=== PATIENT | female | born 1950 | race Caucasian/White ===

== ENCOUNTER → 2016-11-07 | Outpatient (REF) | payer MEDICARE ==
[~2016-11-07] MED LIST: ACET500C; ACET650S3 PO; ATEN50TA2 PO; BABY81CH; CALC500T36 PO; CHLO125TA PO; DITR1TAB PO; ELIQ5TAB PO; FISH1000 PO; LISI25TA PO; MEGE40TA PO; METF500T PO; NITR0.4S; PLAV75TA38 PO; TENO50TA; VITA100T20 PO; VITA50TA43 PO; VITATAB11 PO; unknown bp med
== END ==
LOC: M SFHCWAGY 15:08
PROVIDERS: ATTEND Nurse Practitioner Family
DX: Z12.4 Encounter for screening for malignant neoplasm of cervix (principal); Z12.12 Encounter for screening for malignant neoplasm of rectum
CPT/HCPCS: 82270; G0101; G0123

== ENCOUNTER → 2016-12-06 | Outpatient (CLI) | payer MEDICARE ==
--- NOTE | 2016-12-06 14:08 | REP ---
PELVIC SONOGRAPHY: HISTORY: Postmenopausal bleeding. FINDINGS: Transabdominal and transvaginal scanning are performed. Uterine dimensions are normal post menopausal at 6.1 x 3.4 x 2.9 cm. Endometrial echo is 0.6 cm thick. No focal uterine mass is seen. Neither ovary could be visualized transabdominally or trans vaginally. No adnexal cyst or mass is seen. No free fluid is noted. IMPRESSION: No abnormality noted. Neither ovary is directly visualized. Signed by Leonel Kraimi MD 12/06/2016 04:33 P
== END ==
LOC: M RAD 11:57
PROVIDERS: ATTEND Nurse Practitioner Family
DX: N95.0 Postmenopausal bleeding (principal)

== ENCOUNTER → 2016-12-18 | Outpatient (REF) | payer MEDICARE | LOC: M SFHCWAGY 12:15 | PROVIDERS: ATTEND Nurse Practitioner Family | DX: N95.0 Postmenopausal bleeding (principal); R93.8 Abnormal findings on diagnostic imaging of other specified body structures ==

== ENCOUNTER → 2017-03-11 | Day surgery (SDC) | payer MEDICARE ==
[~2017-03-11] VITALS: Ht 167.6 cm; Wt 129.3 kg
[~2017-03-11] MED LIST changes: +BACITRACIN OINT 30GM As Ordered ONE; +CALC1TAB18 PO; +FISH5CAP PO; +LIDOCAINE 2% INJ 100 MG/5 ML SDV (FOR ANES.) As Ordered ONE; +LIDOCAINE W/EPINEPHRINE 1% 20ML VIAL As Ordered ONE; +LISI2.5T3 PO; +LISI2.5T76 PO; -LISI25TA PO; +LR 1,000 ML IV SCH; +MAGN250T9 PO; -MEGE40TA PO; +MEGE40TA18 PO; +METF750T PO; +MIDAZOLAM INJ 2 MG/2 ML VIAL (J2250) As Ordered ONE; +OSTETAB3 PO; +PRESCAP PO; +PROPOFOL 200 MG/20 ML VIAL As Ordered ONE; +VITA200016 PO; +[UNRECOGNIZED DRUG - CODE] PO; +fentaNYL 100 MCG/2 ML INJECTION (J3010) As Ordered ONE
[2017-03-11 09:35] VITALS: BP 146/67
--- NOTE | 2017-03-11 17:00 | RO ---
DATE OF PROCEDURE: 03/11/2017 PREOPERATIVE DIAGNOSIS: Scalp lesion. POSTOPERATIVE DIAGNOSIS: Scalp lesion. PROCEDURE: Excision of scalp lesion. SURGEON: Dr. Rush SPECIALIST WOUND CARE: None. ANESTHESIA: Intravenous (IV) sedation with 10 mL of 1% lidocaine local. COMPLICATIONS: None. INDICATIONS FOR PROCEDURE: The patient is a 6-year-old female who presents with a large lesion on the apex her scalp. Due to the size, recommendation was to proceed with resection in the operating room. Risks and benefits of the procedure not limited but including bleeding, infection and need further surgery were discussed in detail with the patient. Informed was obtained procedure was planned. PROCEDURE: The patient brought back to operating room one after sufficient sedation. The scalp was sterilely prepped and draped with Betadine. Next, a time out was done confirm patient and proper patient for procedure. Following that local was injected skin subcutaneous tissue underneath and surrounding this lesion. Following that a 5 cm x 2.5 cm elliptical incision was created excising the entire lesion. Once this was completed, electrocautery was used up for hemostasis. A15 blade scalpel was then used to undermine the skin edges for about 2 cm in all directions. Once I was completed the skin edges were reapproximated with #2-0 nylon interrupted sutures. Once the skin incision was closed, it was cleaned and dried. The incision was then covered with him some bacitracin thus ending procedure.
== END | disposition home or self-care (01) ==
LOC: M SDC 06:54
PROVIDERS: ATTEND Surgery
DX: L82.1 Other seborrheic keratosis (principal); E11.9 Type 2 diabetes mellitus without complications; I48.91 Unspecified atrial fibrillation; Z79.02 Long term (current) use of antithrombotics/antiplatelets; Z79.899 Other long term (current) drug therapy; E04.1 Nontoxic single thyroid nodule
CPT/HCPCS: 11423; 88305; J2250; J3010

== ENCOUNTER → 2017-03-15 | Outpatient (REF) | payer MEDICARE ==
[~2017-03-15] MED LIST changes: -BACITRACIN OINT 30GM As Ordered ONE; -LIDOCAINE 2% INJ 100 MG/5 ML SDV (FOR ANES.) As Ordered ONE; -LIDOCAINE W/EPINEPHRINE 1% 20ML VIAL As Ordered ONE; -LR 1,000 ML IV SCH; -MIDAZOLAM INJ 2 MG/2 ML VIAL (J2250) As Ordered ONE; -PROPOFOL 200 MG/20 ML VIAL As Ordered ONE; -fentaNYL 100 MCG/2 ML INJECTION (J3010) As Ordered ONE
[2017-03-15 13:42] LABS: MEAN CORPUSCULAR HEMOGLOBIN 29.1 pg (27.0-33.0); MEAN CORPUSCULAR HGB CONC 32.5 g/dl (32.0-36.5); MEAN CORPUSCULAR VOLUME 89.6 fl (80.0-96.0); RED CELL DISTRIBUTION WIDTH 14.1 % (11.5-14.5); WHITE BLOOD COUNT 7.7 K/mm3 (4.0-10.0)
[2017-03-15 14:07] LABS: ALBUMIN 3.6 GM/DL (3.2-5.2); ALBUMIN/GLOBULIN RATIO 1.09 (1.00-1.93); ALKALINE PHOSPHATASE 66 U/L (45-117); ALT/SGPT 36 U/L (12-78); ANION GAP 10 MEQ/L (8-16); AST/SGOT 16 U/L (15-37); BILIRUBIN,TOTAL 0.7 MG/DL (0.2-1.0); BLOOD UREA NITROGEN 14 MG/DL (7-18); CALCIUM LEVEL 9.3 MG/DL (8.8-10.2); CARBON DIOXIDE LEVEL 29 MEQ/L (21-32); CHLORIDE LEVEL 101 MEQ/L (98-107); CHOLESTEROL LEVEL 155 MG/DL (<200); CREATININE FOR GFR 0.81 MG/DL (0.55-1.02); GLOMERULAR FILTRATION RATE > 60.0 (>45); GLUCOSE, FASTING 95 MG/DL (80-110); POTASSIUM SERUM 4.2 MEQ/L (3.5-5.1); SODIUM LEVEL 140 MEQ/L (136-145); TOTAL PROTEIN 6.9 GM/DL (6.4-8.2); TRIGLYCERIDES LEVEL 211 MG/DL (<150)
== END ==
LOC: M SFHCPLAZ 10:32
PROVIDERS: ATTEND Internal Medicine
DX: R06.09 Other forms of dyspnea (principal); I10 Essential (primary) hypertension; R73.01 Impaired fasting glucose

== ENCOUNTER 2017-04-19 06:01 | Day surgery (SDC) | payer MEDICARE ==
[~2017-04-19] VITALS: Ht 167.6 cm; Wt 129.3 kg
[2017-04-19] VITALS (8 sets, daily range): BP systolic 118–168; BP diastolic 62–77; O2SAT 92
[2017-04-19] MEDS ORDERED: LR 1,000 ML IV SCH ×2 (06:15→12:00)
[2017-04-19] MEDS ORDERED: BUPIVACAINE HCL 0.25% 30 ML VIAL As Ordered ONE (06:34)
[2017-04-19] MEDS ORDERED: METHYLENE BLUE 0.5% (5MG/ML) 10 ML AMP (PROVAYBLUE)(Q9968 PER 1MG) As Ordered ONE (06:35)
[2017-04-19] MEDS ORDERED: PROPOFOL 200 MG/20 ML VIAL As Ordered ONE (08:35)
[2017-04-19] MEDS ORDERED: fentaNYL 250 MCG/5 ML INJECTION (J3010) As Ordered ONE (08:35)
[2017-04-19] MEDS ORDERED: ROCURONIUM BROMIDE 50 MG/5 ML VIAL As Ordered ONE ×3 (08:35→10:32)
[2017-04-19] MEDS ORDERED: LIDOCAINE 2% INJ 100 MG/5 ML SDV (FOR ANES.) As Ordered ONE (08:35)
[2017-04-19] MEDS ORDERED: MIDAZOLAM INJ 2 MG/2 ML VIAL (J2250) As Ordered ONE (08:35)
[2017-04-19] MEDS: LISINOPRIL *2.5 MG* TAB PO SCH ×2 (09:00→20:57)
[2017-04-19] MEDS ORDERED: HYDROmorphone HCL 2 MG/ML 1ML VIAL (J1170) As Ordered ONE (09:28)
[2017-04-19] MEDS ORDERED: ONDANSETRON 4MG/2ML VIAL (J2405) As Ordered ONE (09:35)
[2017-04-19] MEDS ORDERED: hydrALAZINE INJ 20 MG/ML VIAL As Ordered ONE (09:57)
[2017-04-19] MEDS ORDERED: DESFLURANE 240 ML INHALANT As Ordered ONE (10:19)
[2017-04-19] MEDS ORDERED: GLYCOPYRROLATE INJ 0.2 MG/ML 2 ML VIAL As Ordered ONE (10:47)
[2017-04-19] MEDS ORDERED: NEOSTIGMINE 1MG/ML 5 ML SYRINGE (J2710) As Ordered ONE (10:47)
[2017-04-19] MEDS ORDERED: ONDANSETRON 4MG/2ML VIAL (J2405) IV PRN (12:00)
[2017-04-19] MEDS ORDERED: PERCOCET 5MG/325MG TAB PO PRN (12:00)
[2017-04-19] MEDS ORDERED: fentaNYL 100 MCG/2 ML INJECTION (J3010) IV PRN (12:00)
[2017-04-19] MEDS ORDERED: HYDROmorphone HCL 1 MG/ML SYRINGE (J1170) IV PRN (12:00)
[2017-04-19] MEDS ORDERED: PROMETHAZINE INJ 25 MG/ML VIAL (J2550) IV PRN (12:00)
[2017-04-19] MEDS ORDERED: MORPHINE 4 MG/ML 1ML SYRINGE IV PRN (12:00)
[2017-04-19] MEDS ORDERED: METOCLOPRAMIDE INJ 10MG/2ML VIAL (J2765) IV PRN (12:00)
--- NOTE | 2017-04-19 13:53 | RO ---
DATE OF PROCEDURE: 04/19/2017 PREOPERATIVE DIAGNOSES: 1. Postmenopausal bleeding. 2. Genuine stress urinary incontinence. POSTOPERATIVE DIAGNOSES: 1. Postmenopausal bleeding. 2. Genuine stress urinary incontinence. PROCEDURE PERFORMED: 1. Robotic assisted laparoscopic hysterectomy. 2. Bilateral salpingo-oophorectomy. 3. Tension free vaginal tape, obturator approach. 4. Cystoscopy. SURGEON: Taylor Romero MD TRUCK DRIVER'S OFFSIDER: Edil Pillai MD ANESTHESIA: General endotracheal anesthesia. INTRAVENOUS FLUIDS: 1100 mL of Lactated Ringer's solution. SPECIMENS: Cervix, uterus, bilateral adnexa. URINE OUTPUT: 200 mL. ESTIMATED BLOOD LOSS: 100 mL. PREOPERATIVE ANTIBIOTICS: 2 grams of Ancef. OPERATIVE FINDINGS: Normal appearing uterus, bilateral adnexa. Cystoscopic findings show good urethral efflux bilaterally. No evidence of trauma or foreign bodies. DESCRIPTION OF OPERATION: After informed consent was obtained and written consent was reviewed, the patient was brought to the operating room where general endotracheal anesthesia was obtained. She was then placed in lithotomy position, was prepped and draped in a normal sterile fashion. A time out in the operating room was then performed, identifying the patient and procedure to be performed as well as drug allergies. A speculum was then placed revealing the cervix. The anterior and posterior aspect of the cervix was stitched with #0 Vicryl. The uterus was then sequentially dilated with Hanks dilators. A large VCare uterine manipulator was then advanced through the cervical os to the level of the fundus for a means to manipulate the uterus. The uterine balloon was insufflated with 10 mL of air. Then a cervical hat was then advanced down to the vagina. Instruments were removed from the patient's vagina. Garcia catheter was placed and set to gravity. Gloves were changed and attention was turned to the patient's abdomen where a Veress needle was placed in the umbilicus and a pneumoperitoneum was obtained with CO2 gas. The infraumbilical area was infused with 0.25% Marcaine and an incision was made in this area. A trocar and sleeve was advanced through this incision. The laparoscope was then replaced revealing intra-abdominal placement. Two lateral ports left and to the right of umbilicus were placed, each of these were infused with 0.25% Marcaine. 8 mm trocar and sleeves were advanced through each one of these incisions under direct visualization. A fourth trocar was placed in the patient's left side of her abdomen. This area was infused with 0.25% Marcaine. An incision was made in this area and an 8 mm trocar and sleeve was advanced through this incision under direct visualization. Next, the da Idalia was advanced to the patient's table and was docked utilizing camera arm and two operative arms. Utilizing the da Idalia with bipolar cautery, the utero-ovarian ligaments were then cauterized and ligated with good hemostasis noted bilaterally. The round ligaments on both sides were then cauterized and ligated with good hemostasis noted. The anterior lip of the broad ligaments were then dissected along the bladder creating a bladder flap. The remainder of the broad ligament and cardinal ligaments were then cauterized and ligated with good hemostasis noted. The uterine artery was then skeletonized bilaterally and were cauterized and ligated with good hemostasis noted. Inferior and posterior colpotomies were made. The uterus was then removed vaginally. Surgical sites were inspected and noted to be hemostatic. Next, bilateral salpingo-oophorectomy was then performed. The fallopian tube was placed on traction. The right infundibulopelvic ligament was then cauterized and ligated with good hemostasis noted. The specimen was then brought out through the vaginal incision. In a similar fashion, the left adnexa was placed on traction and the left infundibulopelvic ligament was then cauterized and ligated with good hemostasis noted. The specimen was brought out through the incision. The vaginal cuff was then closed laparoscopically using a #2-0 V-Loc system in a running fashion. Surgical sites were inspected to be hemostatic. Evens was then applied over the surgical field. Next the da Idalia was then undocked and attention was turned to the patient's abdomen where all four skin incisions were closed with #4-0 Monocryl and dressed with DERMABOND. We then proceeded to the TVTO. The Garcia catheter was then removed and the area below the urethral meatus was the injected with 1% lidocaine. Incision was then made approximately 2 cm below the urethral meatus to the vaginal mucosa. This area was further dissected bilaterally. A wing guide was then placed and the TVTO device was inserted through the open end of the vaginal mucosa and was rotated externally and then exited through the skin in the groin area, which was previously marked in the line of the clitoris. This was repeated on the patient's left side. A Sugar clamp was then placed between the urethra and the vaginal tape. The tape was then adjusted to appropriate tension. The protective sleeve was removed. Excess mesh was then cut and the vaginal mucosa was closed with #2-0 Vicryl. A cystoscopy was then performed with the above noted findings. Bilateral jets were visualized. No foreign bodies were in urethra to the bladder. Instruments were then removed. The patient was then taken out of lithotomy position and was awakened from general anesthesia and taken to recovery in stable condition. Counts were correct.
[2017-04-19] MEDS: PERCOCET 5MG/325MG TAB PO PRN (18:21)
[2017-04-19] MEDS: LR 1,000 ML IV SCH ×2 (20:00→20:24)
[2017-04-20] MEDS: PERCOCET 5MG/325MG TAB PO PRN ×4 (01:44→15:04)
[2017-04-20 02:00] VITALS: BP 146/67
[2017-04-20 06:00] VITALS: BP 140/65
[2017-04-20 07:11] LABS: MEAN CORPUSCULAR HEMOGLOBIN 29.4 pg (27.0-33.0); MEAN CORPUSCULAR HGB CONC 33.3 g/dl (32.0-36.5); MEAN CORPUSCULAR VOLUME 88.5 fl (80.0-96.0); RED CELL DISTRIBUTION WIDTH 14.6 % (11.5-14.5)
[2017-04-20 12:46] VITALS: BP 131/60
[2017-04-20] MEDS: LISINOPRIL *2.5 MG* TAB PO SCH (12:46)
== END 2017-04-20 18:05 | disposition home or self-care (01) ==
LOC: M SDC 06:01 → M MS5PR 13:47 → M SDC 04-20 18:05
PROVIDERS: ATTEND Obstetrics & Gynecology
DX: N95.0 Postmenopausal bleeding (principal); D25.1 Intramural leiomyoma of uterus; N39.3 Stress incontinence (female) (male); I48.91 Unspecified atrial fibrillation; I10 Essential (primary) hypertension; E11.9 Type 2 diabetes mellitus without complications; Z79.4 Long term (current) use of insulin; E66.01 Morbid (severe) obesity due to excess calories; Z88.2 Allergy status to sulfonamides; Z79.02 Long term (current) use of antithrombotics/antiplatelets; Z79.899 Other long term (current) drug therapy
CPT/HCPCS: 36415; 57288; 58571; 85027; 86850; 86900; 86901; 88307; 96375; A6024; C1771; J0690; J1170; J2250; J2405; J2710; J3010

== ENCOUNTER 2017-05-30 06:50 | Outpatient (CLI) | payer MEDICARE ==
[~2017-05-30] VITALS: Ht 167.6 cm; Wt 127.0 kg
[~2017-05-30 06:50] MED LIST changes: -CALC1TAB18 PO; +CALC1TAB19 PO; -METF500T PO; +METF500T13 PO; +PLAV1TAB2 PO; -PLAV75TA38 PO
[2017-05-30] MEDS ORDERED: NS 1,000 ML IV SCH (07:15)
[2017-05-30] MEDS ORDERED: PROPOFOL 200 MG/20 ML VIAL As Ordered ONE ×2 (08:02→08:36)
--- NOTE | 2017-05-30 08:17 | ROOR ---
Patient Name: Rosaura Flores Procedure Date: 05/30/2017 7:58 AM Date of : 1950 Age: 67 Room: [facility] Gender: Female Note Status: Finalized Procedure: Colonoscopy Indications: High risk colon cancer surveillance: Personal history of colonic polyps, Last colonoscopy: March 2014 Providers: David CARNEY MD Referring MD: Cody Willingham MD Requesting Provider: Medicines: Monitored Anesthesia Care Complications: No immediate complications. Procedure: Pre-Anesthesia Assessment: - The heart rate, respiratory rate, oxygen saturations, blood pressure, adequacy of pulmonary ventilation, and response to care were monitored throughout the procedure. The Colonoscope was introduced through the anus and advanced to the cecum, identified by appendiceal orifice and ileocecal valve. The colonoscopy was performed without difficulty. The patient tolerated the procedure well. The quality of the bowel preparation was good. Findings: The perianal and digital rectal examinations were normal. (Exam: Complete, Prep: Good or Excellent.) The entire examined colon appeared normal on direct and retroflexion views. Impression: - The entire examined colon is normal on direct and retroflexion views. - No specimens collected. Recommendation: - Repeat colonoscopy in 5 years for surveillance based on personal history of previous adenomatous polyps. - Resume Eliquis (apixaban) today and Plavix (clopidogrel) today at prior doses. David Carney MD David CARNEY MD 05/30/2017 8:16:38 AM This report has been signed electronically. Number of Addenda: 0 Note Initiated On: 05/30/2017 7:58 AM Estimated Blood Loss: Estimated blood loss: none.
[2017-05-30 08:48] VITALS: BP 137/67
== END 2017-05-30 08:54 | disposition home or self-care (01) ==
LOC: M OPP 06:50
PROVIDERS: ATTEND Internal Medicine Gastroenterology
DX: Z12.11 Encounter for screening for malignant neoplasm of colon (principal); Z86.010 Personal history of colon polyps; I48.91 Unspecified atrial fibrillation; I10 Essential (primary) hypertension; E11.9 Type 2 diabetes mellitus without complications; E04.1 Nontoxic single thyroid nodule; R06.02 Shortness of breath; N39.3 Stress incontinence (female) (male); Z88.2 Allergy status to sulfonamides; Z79.899 Other long term (current) drug therapy; Z79.01 Long term (current) use of anticoagulants; Z79.84 Long term (current) use of oral hypoglycemic drugs; Z80.3 Family history of malignant neoplasm of breast; Z80.42 Family history of malignant neoplasm of prostate; Z80.41 Family history of malignant neoplasm of ovary

== ENCOUNTER → 2017-08-12 | Outpatient (REF) | payer MEDICARE | LOC: M SFHCPLAZ 11:48 | PROVIDERS: ATTEND Nurse Practitioner Adult Health | DX: J02.9 Acute pharyngitis, unspecified (principal) ==

== ENCOUNTER → 2017-10-08 | Outpatient (REF) | payer MEDICARE ==
[2017-10-08 12:41] LABS: ALBUMIN 3.6 GM/DL (3.2-5.2); ALBUMIN/GLOBULIN RATIO 1.16 (1.00-1.93); ALKALINE PHOSPHATASE 64 U/L (45-117); ALT/SGPT 28 U/L (12-78); ANION GAP 8 MEQ/L (8-16); AST/SGOT 13 U/L (7-37); BILIRUBIN,TOTAL 0.6 MG/DL (0.2-1.0); BLOOD UREA NITROGEN 16 MG/DL (7-18); CALCIUM LEVEL 9.5 MG/DL (8.8-10.2); CARBON DIOXIDE LEVEL 30 MEQ/L (21-32); CHLORIDE LEVEL 104 MEQ/L (98-107); CHOLESTEROL LEVEL 152 MG/DL (<200); CREATININE FOR GFR 0.78 MG/DL (0.55-1.02); GLOMERULAR FILTRATION RATE > 60.0 (>45); GLUCOSE, FASTING 129 MG/DL (80-110); MAGNESIUM LEVEL 1.8 MG/DL (1.8-2.4); POTASSIUM SERUM 4.5 MEQ/L (3.5-5.1); SODIUM LEVEL 142 MEQ/L (136-145); TOTAL PROTEIN 6.7 GM/DL (6.4-8.2); TRIGLYCERIDES LEVEL 188 MG/DL (<150)
== END ==
LOC: M SFHCPLAZ 09:29
PROVIDERS: ATTEND Internal Medicine
DX: I10 Essential (primary) hypertension (principal); E11.9 Type 2 diabetes mellitus without complications

== ENCOUNTER → 2018-01-07 | Outpatient (CLI) | payer MEDICARE | LOC: M RAD 12:13 | DX: Z12.31 Encounter for screening mammogram for malignant neoplasm of breast (principal); R92.8 Other abnormal and inconclusive findings on diagnostic imaging of breast; Z80.3 Family history of malignant neoplasm of breast | CPT/HCPCS: 77067 ==

== ENCOUNTER → 2018-01-16 | Outpatient (CLI) | payer MEDICARE | LOC: M RAD 11:11 | DX: R92.8 Other abnormal and inconclusive findings on diagnostic imaging of breast (principal) | CPT/HCPCS: 77066 ==

== ENCOUNTER → 2018-05-01 | Outpatient (REF) | payer MEDICARE ==
[2018-05-01 11:59] LABS: HEMATOCRIT 40.6 % (36.0-47.0); HEMOGLOBIN 12.6 g/dl (12.0-15.5); MEAN CORPUSCULAR HEMOGLOBIN 28.2 pg (27.0-33.0); MEAN CORPUSCULAR VOLUME 90.8 fl (80.0-96.0); PLATELET COUNT, AUTOMATED 258 10^3/uL (150-450); RED BLOOD COUNT 4.47 10^6/uL (4.00-5.40); RED CELL DISTRIBUTION WIDTH 14.4 % (11.5-14.5); WHITE BLOOD COUNT 7.7 10^3/uL (4.0-10.0)
[2018-05-01 12:26] LABS: ALBUMIN 3.3 GM/DL (3.2-5.2); ALKALINE PHOSPHATASE 59 U/L (45-117); ALT/SGPT 35 U/L (12-78); ANION GAP 8 MEQ/L (8-16); AST/SGOT 14 U/L (7-37); BILIRUBIN,TOTAL 0.5 MG/DL (0.2-1.0); BLOOD UREA NITROGEN 15 MG/DL (7-18); CALCIUM LEVEL 8.8 MG/DL (8.8-10.2); CARBON DIOXIDE LEVEL 29 MEQ/L (21-32); CHLORIDE LEVEL 106 MEQ/L (98-107); CHOLESTEROL LEVEL 151 MG/DL (<200); CHOLESTEROL RISK RATIO 4.081 (<5); CREATININE FOR GFR 0.77 MG/DL (0.55-1.30); GLOMERULAR FILTRATION RATE > 60.0 (>45); GLUCOSE, FASTING 119 MG/DL (70-100); HDL CHOLESTEROL 37 MG/DL (>40); LDL CHOLESTEROL 76.8 MG/DL (<100); MAGNESIUM LEVEL 2.1 MG/DL (1.8-2.4); NON-HDL-C 114 MG/DL; POTASSIUM SERUM 4.5 MEQ/L (3.5-5.1); SODIUM LEVEL 143 MEQ/L (136-145); THYROID STIMULATING HORMONE 0.934 uIU/ML (0.358-3.740); TOTAL PROTEIN 6.3 GM/DL (6.4-8.2); TRIGLYCERIDES LEVEL 186 MG/DL (<150)
== END ==
LOC: M SFHCPLAZ 09:29
DX: G62.9 Polyneuropathy, unspecified (principal); R06.09 Other forms of dyspnea; I10 Essential (primary) hypertension; E11.9 Type 2 diabetes mellitus without complications; E66.01 Morbid (severe) obesity due to excess calories; E04.9 Nontoxic goiter, unspecified
CPT/HCPCS: 83735

== ENCOUNTER → 2018-11-04 | Outpatient (REF) | payer MEDICARE ==
[~2018-11-04] MED LIST changes: -LISI2.5T3 PO; +LISI2.5T5 PO
[2018-11-04 12:40] LABS: ALBUMIN 3.3 GM/DL (3.2-5.2); ALT/SGPT 30 U/L (12-78); BILIRUBIN,TOTAL 0.6 MG/DL (0.2-1.0); BLOOD UREA NITROGEN 17 MG/DL (7-18); CALCIUM LEVEL 9.2 MG/DL (8.8-10.2); CARBON DIOXIDE LEVEL 29 MEQ/L (21-32); CHLORIDE LEVEL 104 MEQ/L (98-107); CHOLESTEROL LEVEL 146 MG/DL (<200); CHOLESTEROL RISK RATIO 3.476 (<5); CREATININE FOR GFR 0.75 MG/DL (0.55-1.30); GLOMERULAR FILTRATION RATE > 60.0 (>45); GLUCOSE, FASTING 127 MG/DL (70-100); HDL CHOLESTEROL 42 MG/DL (>40); LDL CHOLESTEROL 69 MG/DL (<100); MAGNESIUM LEVEL 2.1 MG/DL (1.8-2.4); NON-HDL-C 104 MG/DL; POTASSIUM SERUM 4.7 MEQ/L (3.5-5.1); SODIUM LEVEL 141 MEQ/L (136-145); TOTAL PROTEIN 6.3 GM/DL (6.4-8.2); TRIGLYCERIDES LEVEL 177 MG/DL (<150)
[2018-11-04 12:55] LABS: CREATININE, URINE 56.1 MG/DL; MALB URINE SIEMENS 7.6 MG/L; MAU/CREAT RATIO 13.5 MCG/MG (0.0-30.0)
[2018-11-04 13:54] LABS: HEMOGLOBIN A1c 5.7 %
== END ==
LOC: M SFHCPLAZ 10:05
PROVIDERS: ATTEND Internal Medicine
DX: I10 Essential (primary) hypertension (principal); E11.9 Type 2 diabetes mellitus without complications

== ENCOUNTER → 2019-04-22 | Outpatient (CLI) | payer MEDICARE ==
[~2019-04-22] MED LIST changes: +CALC12504 PO; -CALC500T36 PO; +LISI-1046 PO; -LISI2.5T5 PO; -VITA100T20 PO; +VITA100T51 PO
--- NOTE | 2019-04-22 13:22 | REPMRS ---
Patient History The patient states she has not had a clinical breast exam in over a year. Family history of breast cancer at age 65 in mother, breast cancer at age 50 in sister, breast cancer at age 50 or over in maternal cousin, prostate cancer at age 50 or over in father. Benign excisional biopsy of the right breast, 1988. Took hormonal contraceptives for 3 years. Digital Mammo Screening Bilat: April 22, 2019 - Exam #: [id number] Bilateral CC and MLO view(s) were taken. Technologist: Pallavi Gamble, Technologist Prior study comparison: January 16, 2018, digital mammo diagnostic bilateral performed at [facility]. January 07, 2018, bilateral digital mammo screening bilat performed at [facility]. September 26, 2016, bilateral digital mammo screening bilat performed at [facility]. FINDINGS: There are scattered fibroglandular densities. There are several stable benign appearing nodules on the left unchanged. There has been no change in the appearance of the mammogram from the prior studies. There is a mild amount of scattered fibroglandular density which is fairly symmetric. There is no interval development of dominant mass, architectural distortion, or grouped microcalcification suggestive of malignancy. 3-D tomosynthesis shows no additional findings. Assessment: BI-RADS/ACR category 2 mammogram. Benign Findings. Recommendation Routine screening mammogram of both breasts in 1 year (for women over age 40). This patient's Lifetime Breast Cancer Risk is estimated at 11.6 %. This mammogram was interpreted with the aid of an FDA-approved computer-aided dectection system. Electronically Signed By: Gerald Karimi MD 04/22/19 [id number]
== END ==
LOC: M RAD 10:59
PROVIDERS: ATTEND Internal Medicine
DX: Z12.31 Encounter for screening mammogram for malignant neoplasm of breast (principal); Z80.3 Family history of malignant neoplasm of breast; Z92.0 Personal history of contraception

== ENCOUNTER → 2019-05-12 | Outpatient (REF) | payer MEDICARE ==
[~2019-05-12] MED LIST changes: -CALC12504 PO; +CALC500T61 PO; -METF750T PO; +METF750T36 PO
[2019-05-12 13:02] LABS: HEMATOCRIT 38.4 % (36.0-47.0); HEMOGLOBIN 12.1 g/dl (12.0-15.5); MEAN CORPUSCULAR HEMOGLOBIN 29.4 pg (27.0-33.0); MEAN CORPUSCULAR HGB CONC 31.5 g/dl (32.0-36.5); MEAN CORPUSCULAR VOLUME 93.4 fl (80.0-96.0); PLATELET COUNT, AUTOMATED 222 10^3/uL (150-450); RED BLOOD COUNT 4.11 10^6/uL (4.00-5.40)
[2019-05-12 13:27] LABS: HEMOGLOBIN A1c 5.9 %
[2019-05-12 14:03] LABS: ALBUMIN 3.3 GM/DL (3.2-5.2); ALT/SGPT 40 U/L (12-78); BILIRUBIN,TOTAL 0.7 MG/DL (0.2-1.0); BLOOD UREA NITROGEN 21 MG/DL (7-18); CALCIUM LEVEL 8.9 MG/DL (8.8-10.2); CARBON DIOXIDE LEVEL 27 MEQ/L (21-32); CHLORIDE LEVEL 109 MEQ/L (98-107); CREATININE FOR GFR 0.85 MG/DL (0.55-1.30); GLOMERULAR FILTRATION RATE > 60.0 (>39); GLUCOSE, FASTING 106 MG/DL (70-100); MAGNESIUM LEVEL 2.5 MG/DL (1.8-2.4); POTASSIUM SERUM 4.9 MEQ/L (3.5-5.1); SODIUM LEVEL 144 MEQ/L (136-145)
== END ==
LOC: M SFHCPLAZ 10:32
PROVIDERS: ATTEND Internal Medicine
DX: G62.9 Polyneuropathy, unspecified (principal); R06.09 Other forms of dyspnea; I10 Essential (primary) hypertension; E11.9 Type 2 diabetes mellitus without complications; E04.9 Nontoxic goiter, unspecified; E66.01 Morbid (severe) obesity due to excess calories

== ENCOUNTER → 2019-11-10 | Outpatient (CLI) | payer MEDICARE ==
[2019-11-10 13:55] LABS: HEMATOCRIT 41.1 % (36.0-47.0); HEMOGLOBIN 13.1 g/dl (12.0-15.5); MEAN CORPUSCULAR HEMOGLOBIN 29.2 pg (27.0-33.0); MEAN CORPUSCULAR HGB CONC 31.9 g/dl (32.0-36.5); MEAN CORPUSCULAR VOLUME 91.5 fl (80.0-96.0); PLATELET COUNT, AUTOMATED 275 10^3/uL (150-450); RED BLOOD COUNT 4.49 10^6/uL (4.00-5.40); WHITE BLOOD COUNT 8.3 10^3/uL (4.0-10.0)
[2019-11-10 14:04] LABS: ALBUMIN 3.7 GM/DL (3.2-5.2); ALT/SGPT 39 U/L (12-78); BILIRUBIN,TOTAL 0.8 MG/DL (0.2-1.0); BLOOD UREA NITROGEN 21 MG/DL (7-18); CALCIUM LEVEL 9.7 MG/DL (8.8-10.2); CARBON DIOXIDE LEVEL 30 MEQ/L (21-32); CHLORIDE LEVEL 103 MEQ/L (98-107); CHOLESTEROL LEVEL 172 MG/DL (<200); CREATININE FOR GFR 0.91 MG/DL (0.55-1.30); GLOMERULAR FILTRATION RATE > 60.0 (>39); GLUCOSE, FASTING 127 MG/DL (70-100); HDL CHOLESTEROL 39 MG/DL (>40); LDL CHOLESTEROL 89 MG/DL (<100); MAGNESIUM LEVEL 1.9 MG/DL (1.8-2.4); NON-HDL-C 133 MG/DL; POTASSIUM SERUM 4.8 MEQ/L (3.5-5.1); SODIUM LEVEL 139 MEQ/L (136-145); TOTAL PROTEIN 6.6 GM/DL (6.4-8.2); TRIGLYCERIDES LEVEL 219 MG/DL (<150)
[2019-11-10 14:37] LABS: CREATININE, URINE 78.9 MG/DL; MALB URINE SIEMENS 15.3 MG/L; MAU/CREAT RATIO 19.3 MCG/MG (0.0-30.0)
[2019-11-10 15:03] LABS: HEMOGLOBIN A1c 6.1 %
== END ==
LOC: M PLALAB 11:45
PROVIDERS: ATTEND Internal Medicine
DX: E11.9 Type 2 diabetes mellitus without complications (principal); I10 Essential (primary) hypertension; Z86.010 Personal history of colon polyps

== ENCOUNTER → 2020-05-17 | Outpatient (REF) | payer MEDICARE ==
[~2020-05-17] MED LIST changes: -LISI-1046 PO; +LISI2.5T2 PO
[2020-05-17 13:51] LABS: HEMOGLOBIN A1c 5.7 %
[2020-05-17 13:56] LABS: ALBUMIN 3.4 GM/DL (3.2-5.2); ALT/SGPT 34 U/L (12-78); BILIRUBIN,TOTAL 0.8 MG/DL (0.2-1.0); BLOOD UREA NITROGEN 26 MG/DL (7-18); CALCIUM LEVEL 9.8 MG/DL (8.8-10.2); CARBON DIOXIDE LEVEL 29 MEQ/L (21-32); CHLORIDE LEVEL 103 MEQ/L (98-107); CHOLESTEROL LEVEL 157 MG/DL (<200); CHOLESTEROL RISK RATIO 4.361 (<5); CREATININE FOR GFR 1.09 MG/DL (0.55-1.30); FOLATE > 24.0 NG/ML; GLOMERULAR FILTRATION RATE 52.7 (>39); GLUCOSE, FASTING 117 MG/DL (70-100); HDL CHOLESTEROL 36 MG/DL (>40); LDL CHOLESTEROL 78 MG/DL (<100); MAGNESIUM LEVEL 1.8 MG/DL (1.8-2.4); NON-HDL-C 121 MG/DL; POTASSIUM SERUM 4.9 MEQ/L (3.5-5.1); SODIUM LEVEL 137 MEQ/L (136-145); TOTAL 25(OH) VITAMIN D 32.2 NG/ML (30.0-100.0); TOTAL PROTEIN 6.6 GM/DL (6.4-8.2); TRIGLYCERIDES LEVEL 216 MG/DL (<150); VITAMIN B12 LEVEL 1677 PG/ML
== END ==
LOC: M PLALAB 10:47
PROVIDERS: ATTEND Internal Medicine
DX: E55.9 Vitamin D deficiency, unspecified (principal); I10 Essential (primary) hypertension; E11.9 Type 2 diabetes mellitus without complications; G62.9 Polyneuropathy, unspecified; Z79.899 Other long term (current) drug therapy

== ENCOUNTER → 2020-08-16 | Outpatient (CLI) | payer MEDICARE ==
--- NOTE | 2020-08-16 12:33 | REPVR ---
PROCEDURE INFORMATION: Exam: MR Lumbar Spine Without Contrast. Exam date and time: 08/16/2020 12:11 PM Age: 70 years old Clinical indication: Low back pain; Additional info: Other intervertebral disc degeneration TECHNIQUE: Imaging protocol: Multiplanar magnetic resonance images of the lumbar spine without intravenous contrast. COMPARISON: No relevant prior studies available. FINDINGS: Vertebrae: There is 3 mm of grade 1 anterolisthesis of L3 with respect to L4. Normal vertebral body alignment is otherwise preserved. There is a prominent Schmorl's node along the superior endplate of L3. Spinal cord: The conus medullaris terminates at L1/2. The patient has a congenitally narrowed spinal canal with prominence of the epidural fat. L1-L2: There is shallow disc bulging. There is mild facet hypertrophy. The spinal canal and neural foramina are patent. L2-L3: There is diffuse disc bulging. There is uwce-yb-zyguuove facet and ligamentous hypertrophy. There is mild canal stenosis. There is mild right neural foraminal narrowing.. L3-L4: There is diffuse disc bulging/uncovering related to listhesis. There is prominence of the dorsal epidural fat. There is severe facet hypertrophy. There is severe canal stenosis, with central clumping of nerve roots. There is mild right neural foraminal narrowing. L4-L5: There is shallow disc bulging. There is moderate facet and ligamentous hypertrophy. There is mild bilateral neural foraminal narrowing. L5-S1: There is diffuse disc bulging. There is moderate facet and ligamentous hypertrophy. There is mild to moderate right and mild left neural foraminal narrowing. Soft tissues: Unremarkable. IMPRESSION: Degenerative disc disease and spondylosis in a patient with a congenitally narrowed spinal canal and prominence of the epidural fat. At L3/4, changes contribute to severe acquired canal stenosis, with clumping of nerve roots. Electronically signed by: Obdulia López On 08/16/2020 12:33:56 PM
== END ==
LOC: M RAD 11:00
PROVIDERS: ATTEND Physician Assistant
DX: M51.36 Other intervertebral disc degeneration, lumbar region (principal); M51.26 Other intervertebral disc displacement, lumbar region; M51.27 Other intervertebral disc displacement, lumbosacral region

== ENCOUNTER → 2020-09-29 | Outpatient (CLI) | payer MEDICARE ==
[2020-09-29 17:31] LABS: PLATELET COUNT, AUTOMATED 266 10^3/uL (150-450)
[2020-09-29 17:42] LABS: INR 1.17; PROTHROMBIN TIME 15.2 SECONDS (12.5-14.3)
[2020-09-29 17:43] LABS: PARTIAL THROMBOPLASTIN TIME 30.5 SECONDS (24.2-38.5)
== END ==
LOC: M PLALAB 13:21
PROVIDERS: ATTEND Physician Assistant
DX: M51.37 Other intervertebral disc degeneration, lumbosacral region (principal); Z79.01 Long term (current) use of anticoagulants

== ENCOUNTER → 2020-09-29 | Outpatient (CLI) | payer MEDICARE ==
--- NOTE | 2020-09-29 14:50 | REPMRS ---
Patient History The patient states she has not had a clinical breast exam in over a year. Family history of breast cancer at age 65 in mother, breast cancer at age 50 in sister, breast cancer at age 50 or over in maternal cousin, prostate cancer at age 50 or over in father. Benign excisional biopsy of the right breast, 1988. Took hormonal contraceptives for 3 years. Digital Woman Screen Mammo: September 29, 2020 - Exam #: [id number] Bilateral CC and MLO view(s) were taken. Technologist: Pallavi Gamble, Technologist Prior study comparison: April 22, 2019, bilateral digital mammo screening bilat, performed at [facility]. January 16, 2018, digital mammo diagnostic bilateral, performed at [facility]. January 07, 2018, bilateral digital mammo screening bilat, performed at [facility]. FINDINGS: There are scattered fibroglandular densities. The Volpara volumetric breast density category is:B. There has been no change in the appearance of the mammogram from the prior studies. There is a mild amount of scattered fibroglandular density which is fairly symmetric. There is no interval development of dominant mass, architectural distortion, or grouped microcalcification suggestive of malignancy. 3-D tomosynthesis shows no additional findings. Assessment: BI-RADS/ACR category 1 mammogram. Negative Mammogram. Recommendation Routine screening mammogram of both breasts in 1 year (for women over age 40). This patient's [facility] Lifetime Breast Cancer Risk is estimated at 11.0 %. This mammogram was interpreted with the aid of an FDA-approved computer-aided dectection system. Electronically Signed By: Gerald Karimi MD 09/29/20 [id number]
== END ==
LOC: M WHC 11:58
PROVIDERS: ATTEND Internal Medicine
DX: Z12.31 Encounter for screening mammogram for malignant neoplasm of breast (principal); Z80.3 Family history of malignant neoplasm of breast; Z86.018 Personal history of other benign neoplasm

== ENCOUNTER → 2020-10-26 | Outpatient (CLI) | payer MEDICARE | LOC: M LABSMTC 13:52 | PROVIDERS: ATTEND Physical Medicine & Rehabilitation | DX: Z01.812 Encounter for preprocedural laboratory examination (principal); Z20.828 Contact with and (suspected) exposure to other viral communicable diseases ==

== ENCOUNTER → 2020-12-07 | Outpatient (REF) | payer MEDICARE ==
[2020-12-07 13:26] LABS: BASO # 0.1 10^3/uL (0.0-0.2); BASO % 0.6 % (0.0-1.0); EOS # 0.1 10^3/uL (0.0-0.5); EOS % 1.7 % (0.0-3.0); HEMATOCRIT 40.3 % (36.0-47.0); HEMOGLOBIN 12.7 g/dl (12.0-15.5); LYMPH # 2.2 10^3/uL (1.5-5.0); LYMPH % 26.7 % (24.0-44.0); MEAN CORPUSCULAR HEMOGLOBIN 28.9 pg (27.0-33.0); MEAN CORPUSCULAR HGB CONC 31.5 g/dl (32.0-36.5); MEAN CORPUSCULAR VOLUME 91.6 fl (80.0-96.0); MONO # 0.9 10^3/uL (0.0-0.8); MONO % 11.2 % (0.0-5.0); NEUTROPHILS # 4.9 10^3/uL (1.5-8.5); NEUTROPHILS % 59.6 % (36.0-66.0); PLATELET COUNT, AUTOMATED 265 10^3/uL (150-450); WHITE BLOOD COUNT 8.3 10^3/uL (4.0-10.0)
[2020-12-07 13:55] LABS: ALBUMIN 3.5 GM/DL (3.2-5.2); BILIRUBIN,TOTAL 0.7 MG/DL (0.2-1.0); CALCIUM LEVEL 9.8 MG/DL (8.8-10.2); CHOLESTEROL RISK RATIO 4.052 (<5); CREATININE FOR GFR 1.14 MG/DL (0.55-1.30); MAGNESIUM LEVEL 1.7 MG/DL (1.8-2.4); POTASSIUM SERUM 4.5 MEQ/L (3.5-5.1); TOTAL PROTEIN 6.6 GM/DL (6.4-8.2)
[2020-12-07 14:55] LABS: HEMOGLOBIN A1c 5.8 %
== END ==
LOC: M PLALAB 11:00
PROVIDERS: ATTEND Internal Medicine
DX: G62.9 Polyneuropathy, unspecified (principal); I10 Essential (primary) hypertension; E11.9 Type 2 diabetes mellitus without complications; Z11.59 Encounter for screening for other viral diseases
CPT/HCPCS: 36415; 80053; 80061; 83036; 83735; 85025; G0472

== ENCOUNTER → 2021-06-06 | Outpatient (CLI) | payer MEDICARE ==
[~2021-06-06] MED LIST changes: -LISI2.5T2 PO; +LISI2.5T9 PO
[2021-06-06 14:00] LABS: HEMOGLOBIN A1c 5.9 %
[2021-06-06 14:11] LABS: CREATININE, URINE 55.2 MG/DL; MAU/CREAT RATIO 271.7 MCG/MG (0.0-30.0)
[2021-06-06 14:13] LABS: ALBUMIN 3.3 GM/DL (3.2-5.2); BILIRUBIN,TOTAL 0.7 MG/DL (0.2-1.0); CALCIUM LEVEL 8.7 MG/DL (8.8-10.2); CHOLESTEROL RISK RATIO 3.888 (<5); CREATININE FOR GFR 1.1 MG/DL (0.55-1.30); MAGNESIUM LEVEL 2.1 MG/DL (1.8-2.4); THYROID STIMULATING HORMONE 0.086 uIU/ML (0.358-3.740); TOTAL PROTEIN 6.1 GM/DL (6.4-8.2)
== END ==
LOC: M PLALAB 10:24
PROVIDERS: ATTEND Internal Medicine
DX: I10 Essential (primary) hypertension (principal); E11.9 Type 2 diabetes mellitus without complications; E04.2 Nontoxic multinodular goiter

== ENCOUNTER → 2021-06-12 | Outpatient (REF) | payer MEDICARE ==
[2021-06-12 18:56] LABS: APPEARANCE, URINE CLOUDY (CLEAR); BACTERIA, URINE AUTO NEGATIVE (NEGATIVE); BILIRUBIN, URINE AUTO NEGATIVE (NEGATIVE); BLOOD, URINE BLOOD 2+ (NEGATIVE); COLOR, URINE AMBER (YELLOW); GLUCOSE, URINE (UA) AUTO NEGATIVE (NEGATIVE); KETONE, URINE AUTO NEGATIVE (NEGATIVE); LEUKOCYTE ESTERASE, URINE AUTO 2+ (NEGATIVE); NITRITE, URINE AUTO NEGATIVE (NEGATIVE); PROTEIN, URINE AUTO 1+ mg/dL (NEGATIVE); RBC, URINE AUTO 78 /HPF (0-3); SPECIFIC GRAVITY URINE AUTO 1.012 (1.002-1.035); SQUAMOUS EPITHELIAL CELL UR AU 1 /HPF (0-6); UROBILINOGEN, URINE AUTO 0.2 mg/dL (0.0-2.0); WBC, URINE AUTO 4 /HPF (0-3)
== END ==
LOC: M SFHCPLAZ 16:53
PROVIDERS: ATTEND Internal Medicine
DX: R30.0 Dysuria (principal)

== ENCOUNTER → 2021-07-14 | Outpatient (REF) | payer MEDICARE | LOC: M SFHCPLAZ 16:58 | PROVIDERS: ATTEND Family Medicine | DX: R30.0 Dysuria (principal) ==

== ENCOUNTER → 2021-08-02 | Outpatient (CLI) | payer MEDICARE | LOC: M PLALAB 15:17 | PROVIDERS: ATTEND Family Medicine | DX: R30.0 Dysuria (principal) ==

== ENCOUNTER → 2021-08-04 | Outpatient (REF) | payer MEDICARE ==
[2021-08-04 18:20] LABS: APPEARANCE, URINE CLOUDY (CLEAR); BACTERIA, URINE AUTO NEGATIVE (NEGATIVE); BILIRUBIN, URINE AUTO NEGATIVE (NEGATIVE); BLOOD, URINE BLOOD NEGATIVE (NEGATIVE); COLOR, URINE AMBER (YELLOW); GLUCOSE, URINE (UA) AUTO NEGATIVE (NEGATIVE); KETONE, URINE AUTO NEGATIVE (NEGATIVE); LEUKOCYTE ESTERASE, URINE AUTO 2+ (NEGATIVE); NITRITE, URINE AUTO NEGATIVE (NEGATIVE); PROTEIN, URINE AUTO 1+ mg/dL (NEGATIVE); RBC, URINE AUTO 17 /HPF (0-3); SPECIFIC GRAVITY URINE AUTO 1.014 (1.002-1.035); SQUAMOUS EPITHELIAL CELL UR AU 3 /HPF (0-6); TRIPLE PHOSPHATE CRYSTALS LARGE; UROBILINOGEN, URINE AUTO 0.2 mg/dL (0.0-2.0); WBC, URINE AUTO 3 /HPF (0-3)
== END ==
LOC: M SFHCPLAZ 16:52
PROVIDERS: ATTEND Family Medicine
DX: R30.0 Dysuria (principal)

== ENCOUNTER → 2021-08-31 | Outpatient (CLI) | payer MEDICARE ==
--- NOTE | 2021-08-31 16:31 | REP ---
INDICATION: DYSURIA COMPARISON: None. TECHNIQUE: Four views left ankle. FINDINGS: There is an oblique fracture of the distal fibula with mild lateral displacement. A rounded calcific density distal to the lateral malleolus probably represents an old avulsion fracture. The ankle mortise is anatomic. There is moderate diffuse soft tissue swelling. There is a tibiotalar joint effusion. IMPRESSION: Mildly displaced oblique fracture distal fibula. Moderate soft tissue swelling. <Electronically signed by Ricki Mckeon > 08/31/21 [id number]
== END ==
LOC: M PLAIMG 15:50
PROVIDERS: ATTEND Physician Assistant
DX: S82.432A Displaced oblique fracture of shaft of left fibula, initial encounter for closed fracture (principal); M25.472 Effusion, left ankle; M25.572 Pain in left ankle and joints of left foot; R30.0 Dysuria; W19.XXXA Unspecified fall, initial encounter; Y92.9 Unspecified place or not applicable; Y99.9 Unspecified external cause status

== ENCOUNTER → 2021-09-08 | Outpatient (REF) | payer MEDICARE ==
[2021-09-08 13:27] LABS: APPEARANCE, URINE HAZY (CLEAR); BACTERIA, URINE AUTO NEGATIVE (NEGATIVE); BILIRUBIN, URINE AUTO NEGATIVE (NEGATIVE); BLOOD, URINE BLOOD NEGATIVE (NEGATIVE); COLOR, URINE YELLOW (YELLOW); GLUCOSE, URINE (UA) AUTO NEGATIVE (NEGATIVE); KETONE, URINE AUTO NEGATIVE (NEGATIVE); LEUKOCYTE ESTERASE, URINE AUTO NEGATIVE (NEGATIVE); MUCUS, URINE SMALL (NEGATIVE); NITRITE, URINE AUTO NEGATIVE (NEGATIVE); PROTEIN, URINE AUTO NEGATIVE (NEGATIVE); RBC, URINE AUTO 0 /HPF (0-3); SPECIFIC GRAVITY URINE AUTO 1.012 (1.002-1.035); SQUAMOUS EPITHELIAL CELL UR AU 7 /HPF (0-6); UROBILINOGEN, URINE AUTO 0.2 mg/dL (0.0-2.0); WBC, URINE AUTO 2 /HPF (0-3)
== END ==
LOC: M SMT 12:32
PROVIDERS: ATTEND Nurse Practitioner Women's Health
DX: N39.0 Urinary tract infection, site not specified (principal)

== ENCOUNTER → 2021-09-29 | Outpatient (CLI) | payer MEDICARE ==
--- NOTE | 2021-09-29 15:10 | REP ---
INDICATION: UTI'S W/ BLADDER INCONTINANCE. COMPARISON: None. TECHNIQUE: Real-time sonographic evaluation of the kidneys with Doppler FINDINGS: Multiple ultrasonographic images of the right kidney show the right kidney to measure 13.2 x 4.9 x 3.7 cm. The renal cortical echotexture is unremarkable. There is renal cortical thinning. There is evidence of atrophy of the inferior pole. There is a possible collecting system duplication. It cannot be confirmed with ultrasound. There are no masses. There is good corticomedullary differentiation. There is no hydronephrosis. There are no perinephric fluid collections. Multiple ultrasonographic images of the left kidney show the left kidney to measure 13.1 x 6.1 x 5.2 cm.. The renal cortical echotexture is unremarkable. There are no masses. There is good corticomedullary differentiation. There is no hydronephrosis. There are no perinephric fluid collections. Ultrasonography of the urinary bladder was obtained for pre and postvoid urinary bladder volume calculations. The pre void urinary bladder volume calculation is 413 cc and the postvoid urinary bladder volume calculation is 115 cc. This renders a 27% postvoid residual. Doppler at the UV junction shows uro jet phenomena bilaterally. IMPRESSION: 1. 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 This can only be suggested by ultrasound. Consider CT with CT urogram. 2. Urinary bladder ultrasound as described above. <Electronically signed by Jamal Upton > 09/29/21 [id number]
--- NOTE | 2021-09-29 15:11 | REP ---
INDICATION: UTI'S W/ BLADDER INCONTINANCE. COMPARISON: None. TECHNIQUE: 1 FINDINGS: 1 IMPRESSION: This examination was dictated under the concomitant renal ultrasound exam. <Electronically signed by Jamal Upton > 09/29/21 [id number]
== END ==
LOC: M RAD 13:42
PROVIDERS: ATTEND Nurse Practitioner Women's Health
DX: N39.0 Urinary tract infection, site not specified (principal); R32 Unspecified urinary incontinence; N32.9 Bladder disorder, unspecified; R39.198 Other difficulties with micturition

== ENCOUNTER → 2021-10-18 | Outpatient (CLI) | payer MEDICARE ==
[2021-10-18 15:46] LABS: CALCIUM LEVEL 9.3 MG/DL (8.8-10.2); CREATININE FOR GFR 1.23 MG/DL (0.55-1.30); GLOMERULAR FILTRATION RATE 45.7 (>39); POTASSIUM SERUM 4.8 MEQ/L (3.5-5.1)
== END ==
LOC: M PLALAB 12:56
PROVIDERS: ATTEND Nurse Practitioner Women's Health
DX: Q62.5 Duplication of ureter (principal)

== ENCOUNTER → 2021-11-22 | Outpatient (CLI) | payer MEDICARE ==
[~2021-11-22] MED LIST changes: +ISOVUE-370 76% 100ML VIAL ONE
== END ==
LOC: M PLAIMG 13:06
PROVIDERS: ATTEND Nurse Practitioner Women's Health
DX: N32.3 Diverticulum of bladder (principal); N32.89 Other specified disorders of bladder; N26.1 Atrophy of kidney (terminal); M48.54XA Collapsed vertebra, not elsewhere classified, thoracic region, initial encounter for fracture; N39.0 Urinary tract infection, site not specified; Q62.6 Malposition of ureter
CPT/HCPCS: 74178; Q9967

== ENCOUNTER → 2021-12-12 | Outpatient (CLI) | payer MEDICARE ==
[~2021-12-12] MED LIST changes: -ISOVUE-370 76% 100ML VIAL ONE
[2021-12-12 15:26] LABS: BASO % 0.6 % (0.0-1.0); EOS # 0.1 10^3/uL (0.0-0.5); EOS % 1.7 % (0.0-3.0); HEMATOCRIT 45.5 % (36.0-47.0); HEMOGLOBIN 14.3 g/dl (12.0-15.5); LYMPH # 1.5 10^3/uL (1.5-5.0); LYMPH % 21.2 % (24.0-44.0); MEAN CORPUSCULAR HGB CONC 31.4 g/dl (32.0-36.5); MEAN CORPUSCULAR VOLUME 89.2 fl (80.0-96.0); MONO # 0.9 10^3/uL (0.0-0.8); MONO % 12.5 % (2.0-8.0); NEUTROPHILS # 4.6 10^3/uL (1.5-8.5); NEUTROPHILS % 63.7 % (36.0-66.0); PLATELET COUNT, AUTOMATED 248 10^3/uL (150-450); WHITE BLOOD COUNT 7.3 10^3/uL (4.0-10.0)
[2021-12-12 15:48] LABS: HEMOGLOBIN A1c 5.4 %
[2021-12-12 16:00] LABS: ALBUMIN 3.7 GM/DL (3.2-5.2); ALT/SGPT 60 U/L (12-78); BLOOD UREA NITROGEN 38 MG/DL (7-18); CALCIUM LEVEL 9.7 MG/DL (8.8-10.2); CARBON DIOXIDE LEVEL 27 MEQ/L (21-32); CHLORIDE LEVEL 107 MEQ/L (98-107); CHOLESTEROL LEVEL 151 MG/DL (<200); CHOLESTEROL RISK RATIO 3.511 (<5); CREATININE FOR GFR 1.49 MG/DL (0.55-1.30); FREE T3 2.4 PG/ML (2.2-4.0); FREE T4 2.86 NG/DL (0.76-1.46); GLOMERULAR FILTRATION RATE 36.6 (>39); GLUCOSE, FASTING 104 MG/DL (70-100); HDL CHOLESTEROL 43 MG/DL (>40); LDL CHOLESTEROL 77 MG/DL (<100); NON-HDL-C 108 MG/DL; POTASSIUM SERUM 4.5 MEQ/L (3.5-5.1); SODIUM LEVEL 141 MEQ/L (136-145); THYROID STIMULATING HORMONE < 0.005 uIU/ML (0.358-3.740); TOTAL PROTEIN 7.2 GM/DL (6.4-8.2); TRIGLYCERIDES LEVEL 155 MG/DL (<150)
== END ==
LOC: M PLALAB 12:14
PROVIDERS: ATTEND Internal Medicine
DX: E11.9 Type 2 diabetes mellitus without complications (principal)

== ENCOUNTER 2021-12-25 17:00 | Inpatient (IN) | payer MEDICARE ==
[~2021-12-25] VITALS: Ht 167.6 cm; Wt 117.5 kg
[2021-12-25 20:04] LABS: HEMATOCRIT 40.1 % (36.0-47.0); HEMOGLOBIN 13.2 g/dl (12.0-15.5); MEAN CORPUSCULAR HEMOGLOBIN 28.1 pg (27.0-33.0); MEAN CORPUSCULAR HGB CONC 32.9 g/dl (32.0-36.5); MEAN CORPUSCULAR VOLUME 85.5 fl (80.0-96.0); PLATELET COUNT, AUTOMATED 261 10^3/uL (150-450); RED BLOOD COUNT 4.69 10^6/uL (4.00-5.40); WHITE BLOOD COUNT 10.8 10^3/uL (4.0-10.0)
[2021-12-25 20:12] LABS: BLOOD UREA NITROGEN 57 MG/DL (7-18); CALCIUM LEVEL 9.3 MG/DL (8.8-10.2); CARBON DIOXIDE LEVEL 29 MEQ/L (21-32); CHLORIDE LEVEL 106 MEQ/L (98-107); CREATININE FOR GFR 2.29 MG/DL (0.55-1.30); GLOMERULAR FILTRATION RATE 22.3 (>39); GLUCOSE, FASTING 105 MG/DL (70-100); POTASSIUM SERUM 4.7 MEQ/L (3.5-5.1); SODIUM LEVEL 141 MEQ/L (136-145)
[2021-12-25 20:31] LABS: RSV AMPLIFICATION NEGATIVE (NEGATIVE)
[2021-12-25 21:14] LABS: FREE T4 3.45 NG/DL (0.76-1.46); THYROID STIMULATING HORMONE < 0.005 uIU/ML (0.358-3.740)
[2021-12-25 22:12] LABS: FREE T3 2.7 PG/ML (2.2-4.0)
[2021-12-25] MEDS ORDERED: ACETAMINOPHEN TAB 650MG DOSE (2X325MG) PO PRN (23:15)
[2021-12-25] MEDS ORDERED: GLUCOSE 4GM CHEW TABLET PO PRN (23:15)
[2021-12-25] MEDS ORDERED: GLUCAGON INJ 1MG VIAL SC PRN (23:15)
[2021-12-25] MEDS ORDERED: DEXTROSE 50% 50 ML SYRINGE IV PRN (23:15)
[2021-12-25] MEDS ORDERED: OCUVTAB4 PO (23:24)
[2021-12-25] MEDS ORDERED: OYST500T92 PO (23:24)
[2021-12-25] MEDS ORDERED: KP F1200 PO (23:24)
[2021-12-25] MEDS ORDERED: METH-855 PO (23:24)
[2021-12-25] MEDS ORDERED: OXYB5TAB10 PO (23:24)
[2021-12-25] MEDS ORDERED: EQL50TAB2 PO (23:24)
[2021-12-25] MEDS ORDERED: VITA100T14 PO (23:24)
[2021-12-25] MEDS ORDERED: CYAN100050 PO (23:24)
[2021-12-25] MEDS ORDERED: LYRI150C PO (23:24)
[2021-12-25] MEDS ORDERED: LIDO5TD TOP (23:24)
[2021-12-25] MEDS ORDERED: POTA99TA14 PO (23:24)
[2021-12-25] MEDS ORDERED: CHLO25TA PO (23:24)
[2021-12-25] MEDS ORDERED: AMIO200T49 PO (23:24)
[2021-12-25] MEDS ORDERED: D200CAP3 PO (23:24)
[2021-12-25] MEDS ORDERED: HOME MED LIST COMPLETE! XX SCH (23:25)
[2021-12-25] MEDS: NS 1,000 ML IV SCH (23:40)
[2021-12-26] VITALS (7 sets, daily range): BP systolic 105–149; BP diastolic 49–72
[2021-12-26 02:25] LABS: BASO # 0.1 10^3/uL (0.0-0.2); BASO % 0.6 % (0.0-1.0); EOS # 0.1 10^3/uL (0.0-0.5); EOS % 1.3 % (0.0-3.0); HEMATOCRIT 37.4 % (36.0-47.0); LYMPH # 2.4 10^3/uL (1.5-5.0); LYMPH % 27.9 % (24.0-44.0); MEAN CORPUSCULAR HEMOGLOBIN 28.2 pg (27.0-33.0); MEAN CORPUSCULAR HGB CONC 32.1 g/dl (32.0-36.5); MEAN CORPUSCULAR VOLUME 87.8 fl (80.0-96.0); MONO % 11.7 % (2.0-8.0); PLATELET COUNT, AUTOMATED 227 10^3/uL (150-450); RED BLOOD COUNT 4.26 10^6/uL (4.00-5.40); WHITE BLOOD COUNT 8.6 10^3/uL (4.0-10.0)
[2021-12-26 02:42] LABS: HEMOGLOBIN A1c 5.6 %
[2021-12-26 02:45] LABS: CREATININE FOR GFR 2.14 MG/DL (0.55-1.30); GLOMERULAR FILTRATION RATE 24.1 (>39); POTASSIUM SERUM 4.7 MEQ/L (3.5-5.1)
[2021-12-26] MEDS ORDERED: MAG SULF 1GM/100ML (MAG RUN) 1 GM in IV 1 EA IV ONE (03:05)
[2021-12-26] MEDS ORDERED: NS 1,000 ML IV ONE (03:05)
[2021-12-26 04:43] LABS: BILIRUBIN, URINE MANUAL NEGATIVE (NEGATIVE); GLUCOSE, URINE (UA) MANUAL NEGATIVE (NEGATIVE); KETONE, URINE MANUAL NEGATIVE (NEGATIVE); UROBILINOGEN, URINE MANUAL NORMAL (NORMAL)
[2021-12-26 04:45] LABS: AMORPHOUS SEDIMENT, URINE SMALL AMOUNT (NEGATIVE); BACTERIA, URINE SMALL AMOUNT; HYALINE CAST, URINE NONE SEEN /lpf (0-1); RBC, URINE 0-1 /hpf (0-3); SQUAMOUS EPITHELIAL CELL URINE MOD AMOUNT /hpf (SMALL AMT)
[2021-12-26] MEDS: APIXABAN 5 MG TAB (ELIQUIS) PO SCH ×2 (08:15→20:53)
[2021-12-26] MEDS: OCUVITE 1 TAB PO SCH ×2 (08:15→20:53)
[2021-12-26] MEDS: HumaLOG INSULIN (NovoLOG) PER UNIT SC SCH ×4 (08:16→20:53)
[2021-12-26] MEDS: CALCIUM/VITAMIN D 500 MG TAB PO SCH ×2 (08:16→20:52)
[2021-12-26] MEDS: LIDOCAINE 5% (LIDODERM) PATCH TOP SCH (08:22)
[2021-12-26] MEDS: atenoloL 50 MG TAB PO SCH ×2 (08:32→20:53)
[2021-12-26] MEDS: PREGABALIN 25 MG CAP (LYRICA) PO SCH (09:50)
[2021-12-26] MEDS: NS 1,000 ML IV SCH (12:08)
[2021-12-26] MEDS: PREGABALIN 50 MG CAP (LYRICA) PO SCH (20:53)
[2021-12-26] MEDS: **NOTE PATIENT COMMENT** MISC XX SCH (20:54)
[2021-12-27] VITALS: BP 139/57
[2021-12-27] MEDS: NS 1,000 ML IV SCH ×2 (01:56→15:04)
[2021-12-27 04:00] VITALS: BP 141/66
[2021-12-27 07:10] LABS: BASO % 0.4 % (0.0-1.0); EOS # 0.2 10^3/uL (0.0-0.5); EOS % 3.2 % (0.0-3.0); HEMATOCRIT 37.1 % (36.0-47.0); HEMOGLOBIN 11.8 g/dl (12.0-15.5); LYMPH # 2.4 10^3/uL (1.5-5.0); MEAN CORPUSCULAR HEMOGLOBIN 27.8 pg (27.0-33.0); MEAN CORPUSCULAR HGB CONC 31.8 g/dl (32.0-36.5); MEAN CORPUSCULAR VOLUME 87.5 fl (80.0-96.0); MONO # 0.8 10^3/uL (0.0-0.8); MONO % 11.7 % (2.0-8.0); NEUTROPHILS # 3.7 10^3/uL (1.5-8.5); NEUTROPHILS % 51.6 % (36.0-66.0); PLATELET COUNT, AUTOMATED 201 10^3/uL (150-450); RED BLOOD COUNT 4.24 10^6/uL (4.00-5.40); WHITE BLOOD COUNT 7.2 10^3/uL (4.0-10.0)
[2021-12-27] MEDS: HumaLOG INSULIN (NovoLOG) PER UNIT SC SCH ×4 (07:30→20:46)
[2021-12-27 07:40] LABS: BLOOD UREA NITROGEN 41 MG/DL (7-18); CREATININE FOR GFR 1.44 MG/DL (0.55-1.30); GLOMERULAR FILTRATION RATE 38.1 (>39); GLUCOSE, FASTING 90 MG/DL (70-100); POTASSIUM SERUM 4.2 MEQ/L (3.5-5.1); SODIUM LEVEL 141 MEQ/L (136-145)
[2021-12-27 07:41] LABS: CALCIUM LEVEL 9.4 MG/DL (8.8-10.2); CARBON DIOXIDE LEVEL 28 MEQ/L (21-32); CHLORIDE LEVEL 108 MEQ/L (98-107); FREE THYROXINE INDEX 8.6 % (1.3-4.8); T UPTAKE 43 % (30-39); THYROID STIMULATING HORMONE < 0.005 uIU/ML (0.358-3.740); THYROXINE (T4) 20.1 UG/DL (4.5-12.0)
[2021-12-27 07:50] VITALS: BP_SYST 119; BP_SYST 127; BP_SYST 152; BP_DIAS 62; BP_DIAS 63; BP_DIAS 70
[2021-12-27] MEDS: OCUVITE 1 TAB PO SCH ×2 (09:14→20:53)
[2021-12-27] MEDS: LIDOCAINE 5% (LIDODERM) PATCH TOP SCH (09:15)
[2021-12-27] MEDS: atenoloL 50 MG TAB PO SCH ×2 (09:16→20:54)
[2021-12-27] MEDS: APIXABAN 5 MG TAB (ELIQUIS) PO SCH ×2 (09:16→20:53)
[2021-12-27] MEDS: CALCIUM/VITAMIN D 500 MG TAB PO SCH ×2 (09:16→20:53)
[2021-12-27] MEDS: PREGABALIN 25 MG CAP (LYRICA) PO SCH (09:17)
[2021-12-27] MEDS: oxyBUTYnin 5 MG TAB PO SCH ×2 (11:27→20:54)
[2021-12-27 15:25] VITALS: BP 158/58
[2021-12-27] MEDS: PREGABALIN 50 MG CAP (LYRICA) PO SCH (20:53)
[2021-12-27] MEDS: **NOTE PATIENT COMMENT** MISC XX SCH (20:54)
[2021-12-27 22:00] VITALS: BP 159/73
[2021-12-27] MEDS ORDERED: MIRALAX *UNIT DOSE* 17GM PACKET PO PRN (22:20)
[2021-12-27] MEDS ORDERED: MOM 30ML SUSPENSION UDC PO PRN (22:20)
[2021-12-27] MEDS ORDERED: DOCUSATE SODIUM 100MG CAPSULE PO PRN (22:20)
[2021-12-28] MEDS: NS 1,000 ML IV SCH (04:41)
[2021-12-28 05:49] VITALS: BP_SYST 159; BP_SYST 160; BP_SYST 91; BP_DIAS 63; BP_DIAS 64; BP_DIAS 70
[2021-12-28 06:00] VITALS: BP 152/70
[2021-12-28 06:45] LABS: HEMATOCRIT 36.1 % (36.0-47.0); HEMOGLOBIN 11.6 g/dl (12.0-15.5); MEAN CORPUSCULAR HEMOGLOBIN 28.4 pg (27.0-33.0); MEAN CORPUSCULAR HGB CONC 32.1 g/dl (32.0-36.5); MEAN CORPUSCULAR VOLUME 88.3 fl (80.0-96.0); PLATELET COUNT, AUTOMATED 179 10^3/uL (150-450); RED BLOOD COUNT 4.09 10^6/uL (4.00-5.40); WHITE BLOOD COUNT 6.3 10^3/uL (4.0-10.0)
[2021-12-28 07:07] LABS: CALCIUM LEVEL 9.1 MG/DL (8.8-10.2); CREATININE FOR GFR 1.3 MG/DL (0.55-1.30); GLOMERULAR FILTRATION RATE 42.9 (>39); POTASSIUM SERUM 4.3 MEQ/L (3.5-5.1)
[2021-12-28] MEDS: HumaLOG INSULIN (NovoLOG) PER UNIT SC SCH ×2 (07:30→11:52)
[2021-12-28] MEDS ORDERED: atenoloL 25 MG TAB PO SCH (09:00)
[2021-12-28] MEDS: PREGABALIN 25 MG CAP (LYRICA) PO SCH (09:37)
[2021-12-28] MEDS: APIXABAN 5 MG TAB (ELIQUIS) PO SCH (09:37)
[2021-12-28] MEDS: OCUVITE 1 TAB PO SCH (09:37)
[2021-12-28] MEDS: CALCIUM/VITAMIN D 500 MG TAB PO SCH (09:37)
[2021-12-28] MEDS: LIDOCAINE 5% (LIDODERM) PATCH TOP SCH (09:37)
[2021-12-28] MEDS: oxyBUTYnin 5 MG TAB PO SCH (09:37)
[2021-12-28 10:23] VITALS: BP 145/46
[2021-12-28] MEDS ORDERED: ATEN25TA PO (12:10)
== END 2021-12-28 14:44 | disposition home health service (06) | DRG 683 ==
LOC: M ED 17:00 → M ED INP 23:14 → M PCU 23:14 → M MSPAV 12-27 15:16
PROVIDERS: ADMIT Internal Medicine; ATTEND Internal Medicine
DX: N17.9 Acute kidney failure, unspecified (principal); Z68.41 Body mass index [BMI] 40.0-44.9, adult; R00.1 Bradycardia, unspecified; R29.6 Repeated falls; E04.1 Nontoxic single thyroid nodule; E66.9 Obesity, unspecified; M48.00 Spinal stenosis, site unspecified; G89.29 Other chronic pain; M79.2 Neuralgia and neuritis, unspecified; E11.40 Type 2 diabetes mellitus with diabetic neuropathy, unspecified; I10 Essential (primary) hypertension; N13.30 Unspecified hydronephrosis; R91.1 Solitary pulmonary nodule; I48.0 Paroxysmal atrial fibrillation; Z79.899 Other long term (current) drug therapy; Z88.2 Allergy status to sulfonamides; Z88.8 Allergy status to other drugs, medicaments and biological substances; Z87.442 Personal history of urinary calculi

== ENCOUNTER → 2022-01-08 | Outpatient (CLI) | payer MEDICARE ==
[~2022-01-08] MED LIST changes: +AMIO200T49 PO; +ATEN25TA PO; +CHLO25TA PO; +CYAN100050 PO; +D200CAP3 PO; +EQL50TAB2 PO; +KP F1200 PO; +LIDO5TD TOP; +LYRI150C PO; +METH-855 PO; +OCUVTAB4 PO; +OXYB5TAB10 PO; +OYST500T92 PO; +POTA99TA14 PO; +VITA100T14 PO
[2022-01-08 18:23] LABS: BLOOD UREA NITROGEN 21 MG/DL (7-18); CALCIUM LEVEL 9.2 MG/DL (8.8-10.2); CARBON DIOXIDE LEVEL 32 MEQ/L (21-32); CHLORIDE LEVEL 111 MEQ/L (98-107); CREATININE FOR GFR 0.95 MG/DL (0.55-1.30); GLOMERULAR FILTRATION RATE > 60.0 (>39); GLUCOSE, FASTING 123 MG/DL (70-100); POTASSIUM SERUM 4.7 MEQ/L (3.5-5.1); SODIUM LEVEL 144 MEQ/L (136-145)
== END ==
LOC: M PLALAB 15:00
PROVIDERS: ATTEND Internal Medicine
DX: N17.9 Acute kidney failure, unspecified (principal)

== ENCOUNTER → 2022-01-08 | Outpatient (REF) | payer MEDICARE | LOC: M SFHCPLAZ 14:10 | PROVIDERS: ATTEND Internal Medicine | DX: N17.9 Acute kidney failure, unspecified (principal) ==

== ENCOUNTER → 2022-01-22 | Outpatient (CLI) | payer MEDICARE ==
[2022-01-22 17:53] LABS: FREE T4 2.02 NG/DL (0.76-1.46); THYROID STIMULATING HORMONE < 0.005 uIU/ML (0.358-3.740)
== END ==
LOC: M PLALAB 15:12
PROVIDERS: ATTEND Internal Medicine Endocrinology, Diabetes & Metabolism
DX: E05.10 Thyrotoxicosis with toxic single thyroid nodule without thyrotoxic crisis or storm (principal)

== ENCOUNTER → 2022-02-20 | Outpatient (REF) | payer MEDICARE ==
[2022-02-21 10:15] LABS: BACTERIA, URINE AUTO NEGATIVE (NEGATIVE); RBC, URINE AUTO 0 /HPF (0-3); SQUAMOUS EPITHELIAL CELL UR AU 1 /HPF (0-6); WBC, URINE AUTO 15 /HPF (0-3)
== END ==
LOC: M SMT 09:50
PROVIDERS: ATTEND Specialist
DX: R32 Unspecified urinary incontinence (principal)

== ENCOUNTER → 2022-03-06 | Outpatient (CLI) | payer MEDICARE | LOC: M WHC 13:00 | PROVIDERS: ATTEND Internal Medicine | DX: Z12.31 Encounter for screening mammogram for malignant neoplasm of breast (principal); Z87.81 Personal history of (healed) traumatic fracture; Z80.3 Family history of malignant neoplasm of breast; Z80.42 Family history of malignant neoplasm of prostate; M85.89 Other specified disorders of bone density and structure, multiple sites ==

== ENCOUNTER → 2022-03-06 | Outpatient (CLI) | payer MEDICARE ==
[2022-03-06 15:46] LABS: FREE T4 1.08 NG/DL (0.76-1.46); THYROID STIMULATING HORMONE 0.132 uIU/ML (0.358-3.740)
== END ==
LOC: M PLALAB 14:00
PROVIDERS: ATTEND Internal Medicine Endocrinology, Diabetes & Metabolism
DX: E05.10 Thyrotoxicosis with toxic single thyroid nodule without thyrotoxic crisis or storm (principal)

== ENCOUNTER → 2022-04-02 | Outpatient (REF) | payer MEDICARE ==
[2022-04-02 15:48] LABS: APPEARANCE, URINE CLOUDY (CLEAR); BACTERIA, URINE AUTO 1+ (NEGATIVE); BILIRUBIN, URINE AUTO NEGATIVE (NEGATIVE); BLOOD, URINE BLOOD 2+ (NEGATIVE); COLOR, URINE YELLOW (YELLOW); GLUCOSE, URINE (UA) AUTO NEGATIVE (NEGATIVE); KETONE, URINE AUTO NEGATIVE (NEGATIVE); LEUKOCYTE ESTERASE, URINE AUTO 3+ (NEGATIVE); MUCUS, URINE SMALL (NEGATIVE); NITRITE, URINE AUTO POSITIVE (NEGATIVE); PROTEIN, URINE AUTO NEGATIVE (NEGATIVE); RBC, URINE AUTO 46 /HPF (0-3); SPECIFIC GRAVITY URINE AUTO 1.015 (1.002-1.035); SQUAMOUS EPITHELIAL CELL UR AU 1 /HPF (0-6); UROBILINOGEN, URINE AUTO 0.2 mg/dL (0.0-2.0); WBC, URINE AUTO TNTC /HPF (0-3)
== END ==
LOC: M SMT 15:23
PROVIDERS: ATTEND Specialist
DX: R35.0 Frequency of micturition (principal)

== ENCOUNTER → 2022-04-02 | Outpatient (CLI) | payer MEDICARE | LOC: M PLAIMG 13:50 | PROVIDERS: ATTEND Internal Medicine | DX: R91.1 Solitary pulmonary nodule (principal); E04.9 Nontoxic goiter, unspecified ==

== ENCOUNTER → 2022-05-21 | Outpatient (CLI) | payer MEDICARE ==
[2022-05-21 22:29] LABS: FREE T4 1.06 NG/DL (0.76-1.46); THYROID STIMULATING HORMONE 1.81 uIU/ML (0.358-3.740)
== END ==
LOC: M PLALAB 15:43
PROVIDERS: ATTEND Internal Medicine Endocrinology, Diabetes & Metabolism
DX: E05.10 Thyrotoxicosis with toxic single thyroid nodule without thyrotoxic crisis or storm (principal)

== ENCOUNTER → 2022-06-20 | Outpatient (CLI) | payer MEDICARE ==
[2022-06-20 16:10] LABS: HEMOGLOBIN 12.4 g/dl (12.0-15.5); MEAN CORPUSCULAR HEMOGLOBIN 29.9 pg (27.0-33.0); MEAN CORPUSCULAR HGB CONC 31.8 g/dl (32.0-36.5); PLATELET COUNT, AUTOMATED 192 10^3/uL (150-450); RED BLOOD COUNT 4.15 10^6/uL (4.00-5.40); WHITE BLOOD COUNT 7.6 10^3/uL (4.0-10.0)
[2022-06-20 16:50] LABS: CREATININE, URINE 86.9 MG/DL; MALB URINE SIEMENS 26.5 MG/L; MAU/CREAT RATIO 30.4 MCG/MG (0.0-30.0)
[2022-06-20 16:51] LABS: HEMOGLOBIN A1c 5.4 %
[2022-06-20 17:02] LABS: ALBUMIN 3.4 GM/DL (3.2-5.2); BILIRUBIN,TOTAL 0.5 MG/DL (0.2-1.0); C REACTIVE PROTEIN QUANTITATIV 0.3 MG/DL (0.00-0.30); CALCIUM LEVEL 9.3 MG/DL (8.8-10.2); CREATININE FOR GFR 1.48 MG/DL (0.55-1.30); FREE T4 1.15 NG/DL (0.76-1.46); GLOMERULAR FILTRATION RATE 36.8 (>39); POTASSIUM SERUM 5.5 MEQ/L (3.5-5.1); THYROID STIMULATING HORMONE 0.927 uIU/ML (0.358-3.740); TOTAL PROTEIN 6.1 GM/DL (6.4-8.2)
[2022-06-20 17:50] LABS: CHOLESTEROL RISK RATIO 2.872 (<5); TOTAL 25(OH) VITAMIN D 39.6 NG/ML (30.0-100.0)
== END ==
LOC: M PLALAB 13:04
PROVIDERS: ATTEND Internal Medicine Hematology
DX: E11.9 Type 2 diabetes mellitus without complications (principal); Z79.899 Other long term (current) drug therapy

== ENCOUNTER → 2022-06-25 | Outpatient (CLI) | payer MEDICARE ==
[2022-06-25 17:50] LABS: CALCIUM LEVEL 9.2 MG/DL (8.8-10.2); CREATININE FOR GFR 1.27 MG/DL (0.55-1.30); GLOMERULAR FILTRATION RATE 43.9 (>39)
== END ==
LOC: M PLALAB 15:18
PROVIDERS: ATTEND Internal Medicine Hematology
DX: E87.5 Hyperkalemia (principal); E11.9 Type 2 diabetes mellitus without complications

== ENCOUNTER → 2022-07-19 | Outpatient (CLI) | payer MEDICARE ==
[~2022-07-19] MED LIST changes: +BACT800T5 PO; +METH25TAB PO
== END ==
LOC: M LABSMTC 10:36
PROVIDERS: ATTEND Anesthesiology
DX: Z01.818 Encounter for other preprocedural examination (principal); Z11.52 Encounter for screening for COVID-19

== ENCOUNTER → 2022-07-19 | Outpatient (CLI) | payer MEDICARE ==
[2022-07-19 14:56] LABS: FREE T4 1.27 NG/DL (0.76-1.46); THYROID STIMULATING HORMONE 0.679 uIU/ML (0.358-3.740)
== END ==
LOC: M PLALAB 11:12
PROVIDERS: ATTEND Internal Medicine Endocrinology, Diabetes & Metabolism
DX: E05.10 Thyrotoxicosis with toxic single thyroid nodule without thyrotoxic crisis or storm (principal)

== ENCOUNTER 2022-07-23 10:46 | Day surgery (SDC) | payer MEDICARE ==
[~2022-07-23] VITALS: Ht 167.6 cm; Wt 132.8 kg
[~2022-07-23 10:46] MED LIST changes: +NS 1,000 ML IV ONE
[2022-07-23] MEDS ORDERED: propofoL 200 MG/20 ML VIAL As Ordered ONE ×2 (11:48→11:53)
[2022-07-23 12:39] VITALS: BP 195/82
== END 2022-07-23 12:53 | disposition home or self-care (01) ==
LOC: M OPP 10:46
PROVIDERS: ATTEND Internal Medicine Gastroenterology
DX: Z12.11 Encounter for screening for malignant neoplasm of colon (principal); Z86.010 Personal history of colon polyps; D12.0 Benign neoplasm of cecum; K63.5 Polyp of colon; K64.8 Other hemorrhoids; Z79.01 Long term (current) use of anticoagulants; Z79.899 Other long term (current) drug therapy; I48.91 Unspecified atrial fibrillation; E11.9 Type 2 diabetes mellitus without complications; E03.9 Hypothyroidism, unspecified; Z87.442 Personal history of urinary calculi; Z88.2 Allergy status to sulfonamides

== ENCOUNTER → 2022-07-31 | Outpatient (REF) | payer MEDICARE ==
[~2022-07-31] MED LIST changes: -NS 1,000 ML IV ONE
[2022-07-31 16:24] LABS: BACTERIA, URINE SMALL AMOUNT; HYALINE CAST, URINE NONE SEEN /lpf (0-1)
[2022-07-31 16:25] LABS: RBC, URINE 20-30 /hpf (0-3); SQUAMOUS EPITHELIAL CELL URINE MOD AMOUNT /hpf (SMALL AMT)
== END ==
LOC: M SMT 15:36
PROVIDERS: ATTEND Specialist
DX: N39.0 Urinary tract infection, site not specified (principal)

== ENCOUNTER → 2022-08-28 | Outpatient (REF) | payer MEDICARE ==
[~2022-08-28] MED LIST changes: +CLOP75TA99 PO; -PLAV1TAB2 PO
[2022-08-28 14:32] LABS: COLOR, URINE MANUAL DK YELLOW (YELLOW)
[2022-08-28 14:34] LABS: APPEARANCE, URINE MANUAL HAZY (CLEAR)
[2022-08-28 14:35] LABS: GLUCOSE, URINE (UA) MANUAL NEGATIVE (NEGATIVE); KETONE, URINE MANUAL NEGATIVE (NEGATIVE); PROTEIN, URINE MANUAL NEGATIVE (NEGATIVE); SPECIFIC GRAVITY,URINE MANUAL 1.015 (1.002-1.035); UROBILINOGEN, URINE MANUAL 1 MG mg/dl (NORMAL)
[2022-08-28 14:36] LABS: BILIRUBIN, URINE MANUAL 2+ (NEGATIVE); BLOOD URINE MANUAL TRACE (NEGATIVE); LEUKOCYTE ESTERASE, URINE MAN NEGATIVE (NEGATIVE); NITRITE, URINE MANUAL POSITIVE (NEGATIVE)
[2022-08-28 14:56] LABS: BACTERIA, URINE MOD AMOUNT; SQUAMOUS EPITHELIAL CELL URINE LARGE AMOUNT /hpf (SMALL AMT)
== END ==
LOC: M SMT 12:53
PROVIDERS: ATTEND Physician Assistant
DX: R30.0 Dysuria (principal)

== ENCOUNTER → 2022-09-01 | Outpatient (CLI) | payer MEDICARE | LOC: M RAD 14:39 | PROVIDERS: ATTEND Nurse Practitioner Family | DX: M50.11 Cervical disc disorder with radiculopathy, high cervical region (principal); M50.121 Cervical disc disorder at C4-C5 level with radiculopathy; M50.222 Other cervical disc displacement at C5-C6 level; M50.223 Other cervical disc displacement at C6-C7 level; M48.02 Spinal stenosis, cervical region ==

== ENCOUNTER → 2022-10-04 | Outpatient (CLI) | payer MEDICARE ==
[2022-10-04 19:17] LABS: FREE T4 1.3 NG/DL (0.89-1.76)
[2022-10-04 20:49] LABS: THYROID STIMULATING HORMONE 0.484 uIU/ML (0.55-4.78)
== END ==
LOC: M PLALAB 15:03
PROVIDERS: ATTEND Internal Medicine Endocrinology, Diabetes & Metabolism
DX: E05.10 Thyrotoxicosis with toxic single thyroid nodule without thyrotoxic crisis or storm (principal)

== ENCOUNTER → 2022-12-28 | Outpatient (CLI) | payer MEDICARE ==
[2022-12-28 15:26] LABS: HEMATOCRIT 38.8 % (36.0-47.0); HEMOGLOBIN 12.1 g/dl (12.0-15.5); MEAN CORPUSCULAR HEMOGLOBIN 30.3 pg (27.0-33.0); MEAN CORPUSCULAR HGB CONC 31.2 g/dl (32.0-36.5); MEAN CORPUSCULAR VOLUME 97.2 fl (80.0-96.0); PLATELET COUNT, AUTOMATED 201 10^3/uL (150-450); RED BLOOD COUNT 3.99 10^6/uL (4.00-5.40); WHITE BLOOD COUNT 5.3 10^3/uL (4.0-10.0)
[2022-12-28 16:01] LABS: ALBUMIN 3.4 G/DL (3.2-5.2); BILIRUBIN,TOTAL 0.7 MG/DL (0.3-1.2); C REACTIVE PROTEIN QUANTITATIV 1.6 MG/DL (<1.0); CHOLESTEROL RISK RATIO 3.67 (<5); CREATININE FOR GFR 1.1 MG/DL (0.55-1.30); GLOMERULAR FILTRATION RATE 51.8 (>39); HDL CHOLESTEROL 45.5 MG/DL (>40); LDL CHOLESTEROL 93.1 MG/DL (<100); POTASSIUM SERUM 4.8 MMOL/L (3.5-5.1)
[2022-12-28 16:02] LABS: FREE T4 1.08 NG/DL (0.89-1.76)
[2022-12-28 16:03] LABS: HEMOGLOBIN A1c 4.7 % (4.0-6.0); THYROID STIMULATING HORMONE 1.482 uIU/ML (0.55-4.78); TOTAL 25(OH) VITAMIN D 36.1 NG/ML (20.0-100.0)
[2022-12-28 16:04] LABS: CREATININE, URINE 90.3 MG/DL; MAU/CREAT RATIO 38.7 MCG/MG (0.0-30.0)
== END ==
LOC: M PLALAB 13:04
PROVIDERS: ATTEND Internal Medicine Hematology
DX: E11.9 Type 2 diabetes mellitus without complications (principal)

== ENCOUNTER → 2022-12-31 | Outpatient (REF) | payer MEDICARE ==
[2022-12-31 19:15] LABS: APPEARANCE, URINE MANUAL CLOUDY (CLEAR); COLOR, URINE MANUAL ORANGE (YELLOW)
[2022-12-31 19:18] LABS: BILIRUBIN, URINE MANUAL OBSCURED (NEGATIVE); BLOOD URINE MANUAL POSITIVE (NEGATIVE); GLUCOSE, URINE (UA) MANUAL NEGATIVE (NEGATIVE); KETONE, URINE MANUAL OBSCURED mg/dL (NEGATIVE); LEUKOCYTE ESTERASE, URINE MAN POSITIVE (NEGATIVE); NITRITE, URINE MANUAL OBSCURED (NEGATIVE); PROTEIN, URINE MANUAL OBSCURED mg/dL (NEGATIVE); UROBILINOGEN, URINE MANUAL OBSCURED mg/dl (NORMAL)
[2022-12-31 19:27] LABS: WBC, URINE TNTC /hpf (0-3)
[2022-12-31 19:30] LABS: BACTERIA, URINE LARGE AMOUNT; RBC, URINE 20-30 /hpf (0-3); SQUAMOUS EPITHELIAL CELL URINE SMALL AMOUNT /hpf (SMALL AMT)
[2022-12-31 19:31] LABS: HYALINE CAST, URINE NONE SEEN /lpf (0-1)
== END ==
LOC: M SFHCPLAZ 17:18
PROVIDERS: ATTEND Internal Medicine Hematology
DX: N30.00 Acute cystitis without hematuria (principal); R30.0 Dysuria

== ENCOUNTER → 2023-01-16 | Outpatient (CLI) | payer MEDICARE ==
[~2023-01-16] MED LIST changes: +ISOVUE-370 76% 100ML VIAL As Ordered ONE
== END ==
LOC: M RAD 15:25
PROVIDERS: ATTEND Internal Medicine Hematology
DX: R91.1 Solitary pulmonary nodule (principal)
CPT/HCPCS: 71260; Q9967

== ENCOUNTER → 2023-01-31 | Outpatient (CLI) | payer MEDICARE ==
[~2023-01-31] MED LIST changes: -ISOVUE-370 76% 100ML VIAL As Ordered ONE
== END ==
LOC: M PLAIMG 12:06
PROVIDERS: ATTEND Physician Assistant
DX: M25.572 Pain in left ankle and joints of left foot (principal); M25.562 Pain in left knee

== ENCOUNTER → 2023-04-09 | Outpatient (CLI) | payer MEDICARE ==
[2023-04-09 19:16] LABS: FREE T4 1.16 NG/DL (0.89-1.76); THYROID STIMULATING HORMONE 1.036 uIU/ML (0.55-4.78)
== END ==
LOC: M PLALAB 15:33
PROVIDERS: ATTEND Internal Medicine Endocrinology, Diabetes & Metabolism
DX: E05.10 Thyrotoxicosis with toxic single thyroid nodule without thyrotoxic crisis or storm (principal)

== ENCOUNTER → 2023-04-19 | Outpatient (CLI) | payer MEDICARE ==
[~2023-04-19] MED LIST changes: +CYAN-1 PO; -CYAN100050 PO
== END ==
LOC: M WHC 14:08
PROVIDERS: ATTEND Internal Medicine Hematology
DX: Z12.31 Encounter for screening mammogram for malignant neoplasm of breast (principal); Z80.3 Family history of malignant neoplasm of breast

== ENCOUNTER → 2023-05-24 | Outpatient (REF) | payer MEDICARE ==
[2023-05-24 17:53] LABS: APPEARANCE, URINE HAZY (CLEAR); BACTERIA, URINE AUTO NEGATIVE (NEGATIVE); BILIRUBIN, URINE AUTO NEGATIVE (NEGATIVE); BLOOD, URINE BLOOD NEGATIVE (NEGATIVE); COLOR, URINE AMBER (YELLOW); GLUCOSE, URINE (UA) AUTO NEGATIVE (NEGATIVE); KETONE, URINE AUTO NEGATIVE (NEGATIVE); LEUKOCYTE ESTERASE, URINE AUTO NEGATIVE (NEGATIVE); MUCUS, URINE SMALL (NEGATIVE); NITRITE, URINE AUTO NEGATIVE (NEGATIVE); PROTEIN, URINE AUTO NEGATIVE (NEGATIVE); RBC, URINE AUTO 1 /HPF (0-3); SPECIFIC GRAVITY URINE AUTO 1.015 (1.002-1.035); SQUAMOUS EPITHELIAL CELL UR AU 4 /HPF (0-6); UROBILINOGEN, URINE AUTO 0.2 mg/dL (0.0-2.0); WBC, URINE AUTO 1 /HPF (0-3)
== END ==
LOC: M SMT 17:05
PROVIDERS: ATTEND Specialist
DX: R32 Unspecified urinary incontinence (principal)

== ENCOUNTER → 2023-07-08 | Outpatient (CLI) | payer MEDICARE ==
[2023-07-08 15:52] LABS: HEMATOCRIT 39.4 % (36.0-47.0); HEMOGLOBIN 12.5 g/dl (12.0-15.5); MEAN CORPUSCULAR HEMOGLOBIN 29.8 pg (27.0-33.0); MEAN CORPUSCULAR HGB CONC 31.7 g/dl (32.0-36.5); PLATELET COUNT, AUTOMATED 200 10^3/uL (150-450); RED BLOOD COUNT 4.19 10^6/uL (4.00-5.40); WHITE BLOOD COUNT 7.1 10^3/uL (4.0-10.0)
[2023-07-08 16:18] LABS: ALBUMIN 3.4 G/DL (3.2-5.2); ALKALINE PHOSPHATASE 76 U/L (46-116); ALT/SGPT 20 U/L (7.0-40); AST/SGOT < 8 U/L (<34); BILIRUBIN,TOTAL 0.6 MG/DL (0.3-1.2); BLOOD UREA NITROGEN 23 MG/DL (9-23); CALCIUM LEVEL 9.3 MG/DL (8.3-10.6); CARBON DIOXIDE LEVEL 29 MMOL/L (20-31); CHLORIDE LEVEL 103 MMOL/L (98-107); CHOLESTEROL LEVEL 151 MG/DL (<200); CHOLESTEROL RISK RATIO 3.56 (<5); CREATININE FOR GFR 1.31 MG/DL (0.55-1.30); GLOMERULAR FILTRATION RATE 42.3 (>39); GLUCOSE, FASTING 99 MG/DL (74-106); HDL CHOLESTEROL 42.4 MG/DL (>40); NON-HDL-C 108.6 MG/DL; POTASSIUM SERUM 5.4 MMOL/L (3.5-5.1); SODIUM LEVEL 139 MMOL/L (136-145); TRIGLYCERIDES LEVEL 128 MG/DL (<150)
[2023-07-08 16:20] LABS: THYROID STIMULATING HORMONE 1.597 uIU/ML (0.55-4.78); VITAMIN B12 LEVEL 845 PG/ML (211-911)
[2023-07-08 16:22] LABS: FREE T4 1.16 NG/DL (0.89-1.76)
[2023-07-08 16:25] LABS: CREATININE, URINE 102.4 MG/DL; MAU/CREAT RATIO 10.7 MCG/MG (0.0-30.0)
[2023-07-08 16:56] LABS: HEMOGLOBIN A1c 5.6 % (4.0-6.0)
== END ==
LOC: M PLALAB 12:29
PROVIDERS: ATTEND Internal Medicine Hematology
DX: E11.9 Type 2 diabetes mellitus without complications (principal); E55.9 Vitamin D deficiency, unspecified

== ENCOUNTER → 2023-11-05 | Outpatient (CLI) | payer MEDICARE ==
[~2023-11-05] MED LIST changes: -OXYB5TAB10 PO; +OXYB5TAB11 PO
[2023-11-05 16:05] LABS: FREE T4 1.27 NG/DL (0.89-1.76); THYROID STIMULATING HORMONE 1.891 uIU/ML (0.55-4.78)
== END ==
LOC: M PLALAB 14:10
PROVIDERS: ATTEND Internal Medicine Endocrinology, Diabetes & Metabolism
DX: E05.10 Thyrotoxicosis with toxic single thyroid nodule without thyrotoxic crisis or storm (principal)

== ENCOUNTER 2023-11-19 14:09 | Inpatient (IN) | payer MEDICARE ==
[~2023-11-19] VITALS: Ht 170.2 cm; Wt 125.2 kg
[~2023-11-19 14:09] MED LIST changes: -OXYB5TAB11 PO; +OXYB5TAB14 PO
[2023-11-19 15:18] LABS: VENOUS BASE EXCESS -3.2 (-2.0-2.0); VENOUS HCO3 20.8 MMOL/L (23.0-27.0); VENOUS PARTIAL PRESSURE CO2 34.2 mmHg (38.0-50.0); VENOUS PARTIAL PRESSURE O2 48.2 mmHg (30.0-50.0); VENOUS PH 7.401 UNITS (7.330-7.430); VENOUS STANDARD HCO3 21.5 MMOL/L; VENOUS TOTAL CO2 21.8 MMOL/L (24.0-28.0)
[2023-11-19 15:33] LABS: BASO % 0.4 % (0.0-1.0); EOS % 0.4 % (0.0-3.0); HEMATOCRIT 41.4 % (36.0-47.0); HEMOGLOBIN 13.2 g/dl (12.0-15.5); LYMPH % 13.3 % (24.0-44.0); MEAN CORPUSCULAR HEMOGLOBIN 29.5 pg (27.0-33.0); MEAN CORPUSCULAR HGB CONC 31.9 g/dl (32.0-36.5); MEAN CORPUSCULAR VOLUME 92.6 fl (80.0-96.0); MONO # 0.6 10^3/uL (0.0-0.8); MONO % 7.6 % (2.0-8.0); NEUTROPHILS # 5.7 10^3/uL (1.5-8.5); NEUTROPHILS % 77.9 % (36.0-66.0); PLATELET COUNT, AUTOMATED 211 10^3/uL (150-450); RED BLOOD COUNT 4.47 10^6/uL (4.00-5.40); WHITE BLOOD COUNT 7.4 10^3/uL (4.0-10.0)
[2023-11-19] MEDS: METOPROLOL 5 MG/5 ML VIAL IV SCH (15:39)
[2023-11-19] MEDS: METOPROLOL TART 50 MG TAB PO ONE (15:39)
[2023-11-19] MEDS: FUROSEMIDE 40MG/4ML VIAL IV ONE ×2 (15:40→18:47)
[2023-11-19 15:44] LABS: INR 1.55; PROTHROMBIN TIME 18.1 SECONDS (12.5-14.5)
[2023-11-19 15:58] LABS: ALBUMIN 3.1 G/DL (3.2-5.2); BILIRUBIN,DIRECT 0.4 MG/DL (<0.4); BILIRUBIN,TOTAL 1.1 MG/DL (0.3-1.2); CALCIUM LEVEL 9.3 MG/DL (8.3-10.6); CK-MB VALUE MASS 1.4 NG/ML (<3.6); CREATININE FOR GFR 1.02 MG/DL (0.55-1.30); GLOMERULAR FILTRATION RATE 56.4 (>39); POTASSIUM SERUM 4.2 MMOL/L (3.5-5.1); TOTAL PROTEIN 6.1 G/DL (5.7-8.2)
[2023-11-19 16:03] LABS: MB/CK RELATIVE INDEX 3.33 (< OR =4)
[2023-11-19 16:38] LABS: THYROID STIMULATING HORMONE 1.527 uIU/ML (0.55-4.78)
[2023-11-19 16:39] LABS: FREE T4 1.37 NG/DL (0.89-1.76)
[2023-11-19] MEDS ORDERED: MED REC IN PROGRESS XX SCH (16:40)
[2023-11-19] MEDS: DIGOXIN INJ 0.5 MG/2 ML AMP IV ONE ×2 (16:51→21:55)
[2023-11-19 16:53] LABS: MAGNESIUM LEVEL 1.7 MG/DL (1.8-2.4)
[2023-11-19] MEDS ORDERED: GLUCAGON INJ 1MG VIAL SC PRN (17:05)
[2023-11-19] MEDS ORDERED: DEXTROSE 50% 50ML SYRINGE IV PRN (17:05)
[2023-11-19] MEDS ORDERED: GLUCOSE 4GM CHEW TABLET PO PRN (17:05)
[2023-11-19] MEDS: INSULIN LISPRO (NovoLOG) PER UNIT SC SCH ×2 (17:30→21:00)
[2023-11-19 18:24] LABS: HEMOGLOBIN A1c 5.6 % (4.0-6.0)
[2023-11-19] MEDS ORDERED: FLUTISP (18:26)
[2023-11-19] MEDS ORDERED: MYRB50TA PO (18:45)
[2023-11-19] MEDS ORDERED: METO1TAB33 PO (18:45)
[2023-11-19] MEDS ORDERED: DILT240C83 PO (18:45)
[2023-11-19] MEDS ORDERED: HOME MED LIST COMPLETE! XX SCH (18:50)
[2023-11-19] MEDS: METOPROLOL 5 MG/5 ML VIAL IV PRN (19:07)
[2023-11-19 21:15] VITALS: BP 129/83; TEMP 97.6; O2SAT 94
[2023-11-19] MEDS: APIXABAN 5 MG TAB (ELIQUIS) PO SCH (21:55)
[2023-11-19] MEDS: MAGNESIUM OXIDE 400MG TAB (MAG-OX) PO ONE (21:59)
[2023-11-19 23:32] LABS: CK-MB VALUE MASS 1.7 NG/ML (<3.6)
[2023-11-19 23:34] VITALS: BP 116/59; TEMP 97.2; O2SAT 94
[2023-11-19 23:36] LABS: MB/CK RELATIVE INDEX 3.54 (< OR =4)
[2023-11-20] VITALS (11 sets, daily range): BP systolic 88–135; BP diastolic 52–75; TEMP 96.9–98.6; O2SAT 92–95
[2023-11-20] MEDS: NYSTATIN 100,000 UNITS/GM TOPICAL PWD 15GM TOP SCH (00:24)
[2023-11-20] MEDS: METOPROLOL TART 25 MG TABLET PO SCH (00:25)
[2023-11-20] MEDS: FUROSEMIDE 40MG/4ML VIAL IV SCH (00:26)
[2023-11-20 07:00] LABS: IONIZED CALCIUM 4.2 MG/DL (4.5-5.3)
[2023-11-20 07:06] LABS: BASO # 0.1 10^3/uL (0.0-0.2); BASO % 0.6 % (0.0-1.0); EOS # 0.1 10^3/uL (0.0-0.5); EOS % 0.8 % (0.0-3.0); HEMATOCRIT 42.4 % (36.0-47.0); HEMOGLOBIN 13.8 g/dl (12.0-15.5); LYMPH # 1.5 10^3/uL (1.5-5.0); LYMPH % 19.3 % (24.0-44.0); MEAN CORPUSCULAR HEMOGLOBIN 29.7 pg (27.0-33.0); MEAN CORPUSCULAR HGB CONC 32.5 g/dl (32.0-36.5); MEAN CORPUSCULAR VOLUME 91.4 fl (80.0-96.0); MONO # 0.8 10^3/uL (0.0-0.8); MONO % 9.9 % (2.0-8.0); NEUTROPHILS # 5.3 10^3/uL (1.5-8.5); PLATELET COUNT, AUTOMATED 196 10^3/uL (150-450); RED BLOOD COUNT 4.64 10^6/uL (4.00-5.40); WHITE BLOOD COUNT 7.7 10^3/uL (4.0-10.0)
[2023-11-20] MEDS ORDERED: CALCIUM GLUCONATE 1,000 MG in D5W MINI-BAG PLUS 100 ML IV ONE (07:20)
[2023-11-20] MEDS: DIGOXIN INJ 0.5 MG/2 ML AMP IV STA (07:33)
[2023-11-20 07:34] LABS: CALCIUM LEVEL 8.8 MG/DL (8.3-10.6); CHOLESTEROL RISK RATIO 4.84 (<5); CREATININE FOR GFR 1.2 MG/DL (0.55-1.30); DIGOXIN LEVEL 1.3 NG/ML (0.8-2.0); GLOMERULAR FILTRATION RATE 46.8 (>39); HDL CHOLESTEROL 31.8 MG/DL (>40); MAGNESIUM LEVEL 1.7 MG/DL (1.8-2.4); NON-HDL-C 122.2 MG/DL; POTASSIUM SERUM 3.5 MMOL/L (3.5-5.1)
[2023-11-20 07:36] LABS: FREE T4 1.45 NG/DL (0.89-1.76); THYROID STIMULATING HORMONE 1.366 uIU/ML (0.55-4.78)
[2023-11-20 07:38] LABS: FREE T3 2.8 PG/ML (2.3-4.2)
[2023-11-20 07:49] LABS: CK-MB VALUE MASS 1.7 NG/ML (<3.6)
[2023-11-20 07:50] LABS: MB/CK RELATIVE INDEX 3.03 (< OR =4)
[2023-11-20] MEDS ORDERED: DIGOXIN INJ 0.5 MG/2 ML AMP IV SCH (09:00)
[2023-11-20] MEDS: MAG SULF 1GM/100ML (MAG RUN) 1 GM in IV 1 EA IV ONE (12:23)
[2023-11-20] MEDS: CALCIUM GLUCONATE 1,000 MG in D5W MINI-BAG PLUS 100 ML IV ONE (12:24)
[2023-11-20] MEDS: METOPROLOL TART 25 MG TABLET PO ONE (13:20)
[2023-11-20] MEDS: METOCLOPRAMIDE INJ 10MG/2ML VIAL IV ONE ×2 (13:25→17:45)
[2023-11-20] MEDS: POTASSIUM CHLORIDE 10MEQ SR TABLET PO ONE (13:33)
[2023-11-20] MEDS: MIDODRINE 5 MG TAB PO ONE ×2 (14:05→15:55)
[2023-11-20] MEDS: DIGOXIN INJ 0.5 MG/2 ML AMP IV ONE (14:05)
[2023-11-20] MEDS: FLUZONE HIGH DOSE(65YR UP)QUAD/PF 240MCG/0.7ML SYRINGE IM.IMMUN ONE (14:08)
[2023-11-20] MEDS ORDERED: PILL CUTTER 1 EACH XX ONE (14:55)
[2023-11-20] MEDS: ACETAMINOPHEN 500 MG TAB PO ONE (17:57)
[2023-11-20] MEDS: RIZATRIPTAN BENZOATE 10 MG TAB PO ONE (19:00)
[2023-11-21] VITALS (8 sets, daily range): BP systolic 84–159; BP diastolic 50–89; TEMP 96.7–98.4; O2SAT 92–98
[2023-11-21 04:22] LABS: IONIZED CALCIUM 4.4 MG/DL (4.5-5.3)
[2023-11-21 04:28] LABS: BASO % 0.5 % (0.0-1.0); EOS # 0.1 10^3/uL (0.0-0.5); EOS % 1.4 % (0.0-3.0); LYMPH # 1.5 10^3/uL (1.5-5.0); LYMPH % 20.4 % (24.0-44.0); MEAN CORPUSCULAR HEMOGLOBIN 29.6 pg (27.0-33.0); MEAN CORPUSCULAR HGB CONC 32.6 g/dl (32.0-36.5); MEAN CORPUSCULAR VOLUME 90.7 fl (80.0-96.0); MONO # 0.9 10^3/uL (0.0-0.8); MONO % 11.5 % (2.0-8.0); NEUTROPHILS # 4.9 10^3/uL (1.5-8.5); NEUTROPHILS % 65.9 % (36.0-66.0); PLATELET COUNT, AUTOMATED 192 10^3/uL (150-450); RED BLOOD COUNT 5.07 10^6/uL (4.00-5.40); WHITE BLOOD COUNT 7.4 10^3/uL (4.0-10.0)
[2023-11-21 04:52] LABS: CALCIUM LEVEL 8.7 MG/DL (8.3-10.6); CREATININE FOR GFR 1.06 MG/DL (0.55-1.30); DIGOXIN LEVEL 1.6 NG/ML (0.8-2.0); GLOMERULAR FILTRATION RATE 53.9 (>39); MAGNESIUM LEVEL 1.6 MG/DL (1.8-2.4); POTASSIUM SERUM 3.7 MMOL/L (3.5-5.1)
[2023-11-21] MEDS: MAG SULF 1GM/100ML (MAG RUN) 1 GM in IV 1 EA IV SCH (05:35)
[2023-11-21] MEDS: METOCLOPRAMIDE INJ 10MG/2ML VIAL IV PRN (06:00)
[2023-11-21] MEDS: METOCLOPRAMIDE INJ 10MG/2ML VIAL IV ONE ×2 (07:00→20:48)
[2023-11-21] MEDS: DIGOXIN INJ 0.5 MG/2 ML AMP IV STA (07:54)
[2023-11-21] MEDS: FUROSEMIDE 40MG/4ML VIAL IV ONE ×2 (07:55→17:30)
[2023-11-21] MEDS: DIGOXIN INJ 0.5 MG/2 ML AMP IV ONE ×2 (14:25→20:46)
[2023-11-21] MEDS ORDERED: FUROSEMIDE 40MG/4ML VIAL IV ONE ×2 (16:00→17:00)
[2023-11-21] MEDS ORDERED: MOM 30ML SUSPENSION UDC PO PRN (16:25)
[2023-11-21] MEDS ORDERED: MIDODRINE 5 MG TAB PO ONE (17:00)
[2023-11-21] MEDS: MIDODRINE 5 MG TAB PO ONE (17:50)
[2023-11-21] MEDS: PROMETHAZINE 25MG/ML 1ML VIAL IV ONE (18:50)
[2023-11-21] MEDS: NS 500 ML IV ONE ×2 (18:51→20:48)
[2023-11-21] MEDS: SENOKOT S TAB PO SCH (18:55)
[2023-11-21] MEDS: METOPROLOL TART 50 MG TAB PO SCH (18:56)
[2023-11-21] MEDS: MIRALAX *UNIT DOSE* 17GM PACKET PO SCH (18:57)
[2023-11-21] MEDS: diphenhydrAMINE 50MG/ML VIAL IV ONE (20:47)
[2023-11-21] MEDS: KETOROLAC 30 MG/ML 1ML VIAL IV ONE (20:50)
[2023-11-22 00:12] VITALS: BP 148/84; TEMP 97.2; O2SAT 97
[2023-11-22 03:59] VITALS: BP 156/82; TEMP 97; O2SAT 96
[2023-11-22 04:37] LABS: IONIZED CALCIUM 4.3 MG/DL (4.5-5.3)
[2023-11-22 04:44] LABS: BASO # 0.1 10^3/uL (0.0-0.2); BASO % 0.7 % (0.0-1.0); EOS # 0.1 10^3/uL (0.0-0.5); EOS % 0.6 % (0.0-3.0); HEMATOCRIT 47.8 % (36.0-47.0); HEMOGLOBIN 15.8 g/dl (12.0-15.5); LYMPH # 1.5 10^3/uL (1.5-5.0); LYMPH % 17.9 % (24.0-44.0); MEAN CORPUSCULAR HEMOGLOBIN 29.9 pg (27.0-33.0); MEAN CORPUSCULAR HGB CONC 33.1 g/dl (32.0-36.5); MEAN CORPUSCULAR VOLUME 90.5 fl (80.0-96.0); MONO # 1.1 10^3/uL (0.0-0.8); MONO % 13.8 % (2.0-8.0); NEUTROPHILS # 5.4 10^3/uL (1.5-8.5); NEUTROPHILS % 66.8 % (36.0-66.0); PLATELET COUNT, AUTOMATED 205 10^3/uL (150-450); RED BLOOD COUNT 5.28 10^6/uL (4.00-5.40); WHITE BLOOD COUNT 8.1 10^3/uL (4.0-10.0)
[2023-11-22 05:07] LABS: CALCIUM LEVEL 9.5 MG/DL (8.3-10.6); CREATININE FOR GFR 1.24 MG/DL (0.55-1.30); MAGNESIUM LEVEL 1.9 MG/DL (1.8-2.4); POTASSIUM SERUM 4.2 MMOL/L (3.5-5.1)
[2023-11-22 05:13] LABS: DIGOXIN LEVEL 3.5 NG/ML (0.8-2.0)
[2023-11-22 07:47] VITALS: BP 131/68; TEMP 97.2; O2SAT 99
[2023-11-22] MEDS: FUROSEMIDE 40MG/4ML VIAL IV ONE (09:46)
[2023-11-22 11:37] VITALS: BP 124/71; TEMP 97.5; O2SAT 98
[2023-11-22] MEDS: MAG SULF 1GM/100ML (MAG RUN) 1 GM in IV 1 EA IV ONE (11:48)
[2023-11-22 15:42] VITALS: BP 121/57; TEMP 97.8; O2SAT 97
[2023-11-22 18:52] VITALS: BP 110/56; TEMP 97.3; O2SAT 99
[2023-11-23] VITALS (10 sets, daily range): BP systolic 85–133; BP diastolic 51–69; TEMP 96.6–97.9; O2SAT 92–98
[2023-11-23 06:12] LABS: IONIZED CALCIUM 4.6 MG/DL (4.5-5.3)
[2023-11-23 06:13] LABS: BASO # 0.1 10^3/uL (0.0-0.2); BASO % 0.6 % (0.0-1.0); EOS # 0.2 10^3/uL (0.0-0.5); EOS % 2.4 % (0.0-3.0); HEMATOCRIT 47.3 % (36.0-47.0); HEMOGLOBIN 15.5 g/dl (12.0-15.5); LYMPH # 1.4 10^3/uL (1.5-5.0); LYMPH % 18.1 % (24.0-44.0); MEAN CORPUSCULAR HEMOGLOBIN 29.8 pg (27.0-33.0); MEAN CORPUSCULAR HGB CONC 32.8 g/dl (32.0-36.5); MONO # 1.1 10^3/uL (0.0-0.8); MONO % 13.7 % (2.0-8.0); NEUTROPHILS # 5.1 10^3/uL (1.5-8.5); NEUTROPHILS % 64.9 % (36.0-66.0); PLATELET COUNT, AUTOMATED 208 10^3/uL (150-450); WHITE BLOOD COUNT 7.9 10^3/uL (4.0-10.0)
[2023-11-23] MEDS: ACETAMINOPHEN TAB 650MG DOSE (2X325MG) PO PRN (06:21)
[2023-11-23 06:42] LABS: BLOOD UREA NITROGEN 22 MG/DL (9-23); CALCIUM LEVEL 9.5 MG/DL (8.3-10.6); CARBON DIOXIDE LEVEL 32 MMOL/L (20-31); CHLORIDE LEVEL 100 MMOL/L (98-107); CREATININE FOR GFR 0.94 MG/DL (0.55-1.30); DIGOXIN LEVEL 2.4 NG/ML (0.8-2.0); GLOMERULAR FILTRATION RATE > 60.0 (>39); GLUCOSE, FASTING 102 MG/DL (74-106); MAGNESIUM LEVEL 2.1 MG/DL (1.8-2.4); POTASSIUM SERUM 3.8 MMOL/L (3.5-5.1); SODIUM LEVEL 135 MMOL/L (136-145)
[2023-11-23] MEDS: METOPROLOL TART 50 MG TAB PO ONE (11:22)
[2023-11-23] MEDS: METOPROLOL SUCC (TopROL XL) 100MG *XL* TAB PO SCH (20:35)
[2023-11-23] MEDS: METOPROLOL SUCC (TopROL XL) 50MG **XL** TAB PO ONE (20:56)
[2023-11-24] VITALS (9 sets, daily range): BP systolic 97–134; BP diastolic 58–92; TEMP 97.3–98.1; O2SAT 71–94
[2023-11-24 05:41] LABS: IONIZED CALCIUM 4.5 MG/DL (4.5-5.3)
[2023-11-24 05:47] LABS: BASO # 0.1 10^3/uL (0.0-0.2); BASO % 0.8 % (0.0-1.0); EOS # 0.1 10^3/uL (0.0-0.5); EOS % 1.7 % (0.0-3.0); HEMATOCRIT 45.9 % (36.0-47.0); LYMPH # 1.8 10^3/uL (1.5-5.0); LYMPH % 24.3 % (24.0-44.0); MEAN CORPUSCULAR HEMOGLOBIN 29.4 pg (27.0-33.0); MEAN CORPUSCULAR HGB CONC 32.7 g/dl (32.0-36.5); MONO # 1.1 10^3/uL (0.0-0.8); MONO % 14.8 % (2.0-8.0); NEUTROPHILS # 4.4 10^3/uL (1.5-8.5); PLATELET COUNT, AUTOMATED 210 10^3/uL (150-450); WHITE BLOOD COUNT 7.6 10^3/uL (4.0-10.0)
[2023-11-24 06:19] LABS: BLOOD UREA NITROGEN 24 MG/DL (9-23); CALCIUM LEVEL 9.5 MG/DL (8.3-10.6); CARBON DIOXIDE LEVEL 30 MMOL/L (20-31); CHLORIDE LEVEL 101 MMOL/L (98-107); CREATININE FOR GFR 0.93 MG/DL (0.55-1.30); DIGOXIN LEVEL 1.8 NG/ML (0.8-2.0); GLOMERULAR FILTRATION RATE > 60.0 (>39); GLUCOSE, FASTING 93 MG/DL (74-106); MAGNESIUM LEVEL 1.9 MG/DL (1.8-2.4); POTASSIUM SERUM 3.7 MMOL/L (3.5-5.1); SODIUM LEVEL 140 MMOL/L (136-145)
[2023-11-24] MEDS: MIDODRINE 5 MG TAB PO ONE (08:01)
[2023-11-24] MEDS: MIDODRINE 5 MG TAB PO SCH (12:47)
[2023-11-25 05:10] VITALS: BP 114/64; TEMP 97.7; O2SAT 94
[2023-11-25 06:03] LABS: IONIZED CALCIUM 4.4 MG/DL (4.5-5.3)
[2023-11-25 06:13] LABS: BASO # 0.1 10^3/uL (0.0-0.2); EOS # 0.2 10^3/uL (0.0-0.5); EOS % 2.2 % (0.0-3.0); HEMATOCRIT 47.5 % (36.0-47.0); HEMOGLOBIN 15.5 g/dl (12.0-15.5); LYMPH # 1.9 10^3/uL (1.5-5.0); LYMPH % 26.3 % (24.0-44.0); MEAN CORPUSCULAR HEMOGLOBIN 29.3 pg (27.0-33.0); MEAN CORPUSCULAR HGB CONC 32.6 g/dl (32.0-36.5); MEAN CORPUSCULAR VOLUME 89.8 fl (80.0-96.0); MONO # 1.2 10^3/uL (0.0-0.8); MONO % 16.4 % (2.0-8.0); NEUTROPHILS # 3.9 10^3/uL (1.5-8.5); NEUTROPHILS % 53.7 % (36.0-66.0); PLATELET COUNT, AUTOMATED 212 10^3/uL (150-450); RED BLOOD COUNT 5.29 10^6/uL (4.00-5.40); WHITE BLOOD COUNT 7.2 10^3/uL (4.0-10.0)
[2023-11-25 06:45] LABS: BLOOD UREA NITROGEN 19 MG/DL (9-23); CALCIUM LEVEL 9.3 MG/DL (8.3-10.6); CARBON DIOXIDE LEVEL 30 MMOL/L (20-31); CHLORIDE LEVEL 102 MMOL/L (98-107); DIGOXIN LEVEL 1.2 NG/ML (0.8-2.0); GLOMERULAR FILTRATION RATE > 60.0 (>39); GLUCOSE, FASTING 98 MG/DL (74-106); POTASSIUM SERUM 3.7 MMOL/L (3.5-5.1); SODIUM LEVEL 140 MMOL/L (136-145)
[2023-11-25] MEDS ORDERED: DIGOXIN INJ 0.5 MG/2 ML AMP IV STA (08:34)
[2023-11-25 18:42] VITALS: BP 135/64; TEMP 97.3; O2SAT 95
[2023-11-25] MEDS ORDERED: MIDODRINE 5 MG TAB PO PRN (20:50)
[2023-11-25 21:18] VITALS: BP 112/88; TEMP 97.2; O2SAT 95
[2023-11-26] VITALS (7 sets, daily range): BP systolic 73–143; BP diastolic 53–98; TEMP 97.2–98.4; O2SAT 86–98
[2023-11-26 06:08] LABS: IONIZED CALCIUM 4.6 MG/DL (4.5-5.3)
[2023-11-26 06:10] LABS: BASO # 0.1 10^3/uL (0.0-0.2); BASO % 0.9 % (0.0-1.0); EOS # 0.2 10^3/uL (0.0-0.5); EOS % 2.4 % (0.0-3.0); HEMATOCRIT 46.6 % (36.0-47.0); HEMOGLOBIN 15.1 g/dl (12.0-15.5); LYMPH % 28.6 % (24.0-44.0); MEAN CORPUSCULAR HEMOGLOBIN 29.2 pg (27.0-33.0); MEAN CORPUSCULAR HGB CONC 32.4 g/dl (32.0-36.5); MONO # 1.1 10^3/uL (0.0-0.8); MONO % 15.7 % (2.0-8.0); NEUTROPHILS # 3.7 10^3/uL (1.5-8.5); NEUTROPHILS % 52.3 % (36.0-66.0); PLATELET COUNT, AUTOMATED 229 10^3/uL (150-450); RED BLOOD COUNT 5.18 10^6/uL (4.00-5.40)
[2023-11-26 06:44] LABS: BLOOD UREA NITROGEN 18 MG/DL (9-23); CALCIUM LEVEL 9.7 MG/DL (8.3-10.6); CARBON DIOXIDE LEVEL 31 MMOL/L (20-31); CHLORIDE LEVEL 104 MMOL/L (98-107); CREATININE FOR GFR 0.91 MG/DL (0.55-1.30); GLOMERULAR FILTRATION RATE > 60.0 (>39); GLUCOSE, FASTING 94 MG/DL (74-106); MAGNESIUM LEVEL 1.9 MG/DL (1.8-2.4); POTASSIUM SERUM 3.6 MMOL/L (3.5-5.1); SODIUM LEVEL 143 MMOL/L (136-145)
[2023-11-26] MEDS: ONDANSETRON 4MG 2ML VIAL IV ONE (08:27)
[2023-11-26] MEDS: NS 1,000 ML IV SCH (12:19)
[2023-11-27 04:14] LABS: IONIZED CALCIUM 4.4 MG/DL (4.5-5.3)
[2023-11-27 04:19] LABS: HEMATOCRIT 43.3 % (36.0-47.0); HEMOGLOBIN 14.2 g/dl (12.0-15.5); MEAN CORPUSCULAR HEMOGLOBIN 29.8 pg (27.0-33.0); MEAN CORPUSCULAR HGB CONC 32.8 g/dl (32.0-36.5); PLATELET COUNT, AUTOMATED 211 10^3/uL (150-450); RED BLOOD COUNT 4.76 10^6/uL (4.00-5.40); WHITE BLOOD COUNT 5.8 10^3/uL (4.0-10.0)
[2023-11-27 04:43] LABS: DIGOXIN LEVEL 0.8 NG/ML (0.8-2.0)
[2023-11-27 05:34] LABS: ALKALINE PHOSPHATASE 66 U/L (46-116); ALT/SGPT 24 U/L (7.0-40); AST/SGOT 22 U/L (<34); BILIRUBIN,TOTAL 0.7 MG/DL (0.3-1.2); BLOOD UREA NITROGEN 16 MG/DL (9-23); CARBON DIOXIDE LEVEL 29 MMOL/L (20-31); CHLORIDE LEVEL 105 MMOL/L (98-107); CREATININE FOR GFR 0.91 MG/DL (0.55-1.30); GLOMERULAR FILTRATION RATE > 60.0 (>39); GLUCOSE, FASTING 107 MG/DL (74-106); MAGNESIUM LEVEL 1.9 MG/DL (1.8-2.4); POTASSIUM SERUM 3.5 MMOL/L (3.5-5.1); SODIUM LEVEL 141 MMOL/L (136-145); TOTAL PROTEIN 5.7 G/DL (5.7-8.2)
[2023-11-27 06:18] VITALS: BP 126/58; TEMP 97.5; O2SAT 95
[2023-11-27] MEDS: dilTIAZem 30 MG TAB PO SCH (09:42)
[2023-11-27] MEDS: POTASSIUM CHLORIDE 10MEQ SR TABLET PO ONE (10:47)
[2023-11-27] MEDS: CALCIUM GLUCONATE 1,000 MG in D5W MINI-BAG PLUS 100 ML IV ONE (10:47)
[2023-11-27] MEDS: MAG SULF 1GM/100ML (MAG RUN) 1 GM in IV 1 EA IV ONE (12:03)
[2023-11-27 14:00] VITALS: BP 115/54; TEMP 97.3; O2SAT 94
[2023-11-27 14:30] VITALS: BP_SYST 124; BP_SYST 147; BP_SYST 98; BP_DIAS 57; BP_DIAS 75; BP_DIAS 87
[2023-11-27 18:56] LABS: CK-MB VALUE MASS 2.9 NG/ML (<3.6); MAGNESIUM LEVEL 1.9 MG/DL (1.8-2.4); POTASSIUM SERUM 3.7 MMOL/L (3.5-5.1)
[2023-11-27 18:58] LABS: IONIZED CALCIUM 4.4 MG/DL (4.5-5.3); MB/CK RELATIVE INDEX 4.75 (< OR =4)
[2023-11-27 20:50] VITALS: BP 138/80; TEMP 97.5; O2SAT 98
[2023-11-27] MEDS: POTASSIUM CHLORIDE 10MEQ SR TABLET PO SCH (21:04)
[2023-11-28 00:09] LABS: IONIZED CALCIUM 4.6 MG/DL (4.5-5.3)
[2023-11-28 00:36] LABS: MAGNESIUM LEVEL 1.8 MG/DL (1.8-2.4); POTASSIUM SERUM 3.8 MMOL/L (3.5-5.1)
[2023-11-28 00:37] LABS: CK-MB VALUE MASS 1.6 NG/ML (<3.6)
[2023-11-28 00:38] LABS: MB/CK RELATIVE INDEX 2.66 (< OR =4)
[2023-11-28 05:42] VITALS: BP 136/79; TEMP 97.5; O2SAT 99
[2023-11-28 06:12] LABS: IONIZED CALCIUM 4.5 MG/DL (4.5-5.3)
[2023-11-28 06:46] LABS: MAGNESIUM LEVEL 1.8 MG/DL (1.8-2.4)
[2023-11-28 06:48] LABS: MB/CK RELATIVE INDEX 1.47 (< OR =4)
[2023-11-28] MEDS: MIDODRINE 5 MG TAB PO SCH (08:49)
[2023-11-28 12:00] VITALS: BP 135/69
[2023-11-28] MEDS: MAG SULF 1GM/100ML (MAG RUN) 1 GM in IV 1 EA IV ONE (12:31)
[2023-11-28 14:00] VITALS: BP_SYST 103; BP_SYST 133; BP_SYST 136; BP_SYST 99; BP_DIAS 68; BP_DIAS 74; BP_DIAS 86
[2023-11-28 20:00] VITALS: BP 126/80; TEMP 97.2; O2SAT 95
[2023-11-29 02:06] VITALS: BP 128/78; TEMP 97.3; O2SAT 95
[2023-11-29 05:07] VITALS: BP 119/79; TEMP 97.3; O2SAT 97
[2023-11-29 05:49] LABS: IONIZED CALCIUM 4.5 MG/DL (4.5-5.3)
[2023-11-29 06:22] LABS: DIGOXIN LEVEL 0.6 NG/ML (0.8-2.0)
[2023-11-29] MEDS: dilTIAZem 30 MG TAB PO ONE (09:39)
[2023-11-29 10:11] LABS: IONIZED CALCIUM 4.1 MG/DL (4.5-5.3)
[2023-11-29 10:59] LABS: BLOOD UREA NITROGEN 12 MG/DL (9-23); CALCIUM LEVEL 8.9 MG/DL (8.3-10.6); CARBON DIOXIDE LEVEL 28 MMOL/L (20-31); CHLORIDE LEVEL 110 MMOL/L (98-107); CREATININE FOR GFR 0.85 MG/DL (0.55-1.30); GLOMERULAR FILTRATION RATE > 60.0 (>39); GLUCOSE, FASTING 148 MG/DL (74-106); MAGNESIUM LEVEL 1.8 MG/DL (1.8-2.4); POTASSIUM SERUM 5.1 MMOL/L (3.5-5.1); SODIUM LEVEL 144 MMOL/L (136-145)
[2023-11-29 14:00] VITALS: BP_SYST 131; BP_SYST 145; BP_DIAS 104; BP_DIAS 79; TEMP 97.7; O2SAT 95
[2023-11-29 16:15] VITALS: BP 153/97
[2023-11-29 16:25] LABS: MB/CK RELATIVE INDEX 2.12 (< OR =4)
[2023-11-29 20:49] VITALS: BP 152/86; TEMP 97.3; O2SAT 98
[2023-11-29] MEDS: dilTIAZem 60 MG TAB PO SCH (21:25)
[2023-11-29 23:20] LABS: CK-MB VALUE MASS 2.3 NG/ML (<3.6)
[2023-11-29 23:32] LABS: MB/CK RELATIVE INDEX 1.98 (< OR =4)
[2023-11-30] VITALS (9 sets, daily range): BP systolic 90–132; BP diastolic 63–78; TEMP 96.8–97.6; O2SAT 92–96
[2023-11-30 07:37] LABS: IONIZED CALCIUM 4.5 MG/DL (4.5-5.3)
[2023-11-30] MEDS ORDERED: CALCIUM GLUCONATE 1,000 MG in D5W MINI-BAG PLUS 100 ML IV ONE (08:00)
[2023-11-30 08:09] LABS: BLOOD UREA NITROGEN 11 MG/DL (9-23); CALCIUM LEVEL 9.2 MG/DL (8.3-10.6); CARBON DIOXIDE LEVEL 24 MMOL/L (20-31); CARBON DIOXIDE LEVEL 25 MMOL/L (20-31); CHLORIDE LEVEL 108 MMOL/L (98-107); CHLORIDE LEVEL 109 MMOL/L (98-107); CK-MB VALUE MASS 1.1 NG/ML (<3.6); CPK CREATINE PHOSPHOKINASE 42 U/L (34-145); CREATININE FOR GFR 0.82 MG/DL (0.55-1.30); CREATININE FOR GFR 0.83 MG/DL (0.55-1.30); GLOMERULAR FILTRATION RATE > 60.0 (>39); GLUCOSE, FASTING 108 MG/DL (74-106); GLUCOSE, FASTING 109 MG/DL (74-106); MAGNESIUM LEVEL 1.7 MG/DL (1.8-2.4); MB/CK RELATIVE INDEX 2.61 (< OR =4); POTASSIUM SERUM 4.6 MMOL/L (3.5-5.1); POTASSIUM SERUM 4.8 MMOL/L (3.5-5.1); SODIUM LEVEL 140 MMOL/L (136-145); SODIUM LEVEL 142 MMOL/L (136-145)
[2023-11-30] MEDS: CALCIUM GLUCONATE 1,000 MG in D5W MINI-BAG PLUS 100 ML IV ONE (08:47)
[2023-11-30] MEDS ORDERED: MAG SULF 1GM/100ML (MAG RUN) 1 GM in IV 1 EA IV ONE (09:00)
[2023-11-30] MEDS: MAG SULF 1GM/100ML (MAG RUN) 1 GM in IV 1 EA IV ONE (10:42)
[2023-11-30] MEDS: dilTIAZem 60 MG TAB PO SCH (12:52)
[2023-11-30 17:16] LABS: IONIZED CALCIUM 4.7 MG/DL (4.5-5.3)
[2023-11-30 17:43] LABS: MAGNESIUM LEVEL 1.8 MG/DL (1.8-2.4); POTASSIUM SERUM 4.7 MMOL/L (3.5-5.1)
[2023-12-01] VITALS (9 sets, daily range): BP systolic 88–140; BP diastolic 65–80; TEMP 96.3–97.6; O2SAT 91–98
[2023-12-01 07:13] LABS: BLOOD UREA NITROGEN 11 MG/DL (9-23); CALCIUM LEVEL 8.7 MG/DL (8.3-10.6); CARBON DIOXIDE LEVEL 27 MMOL/L (20-31); CHLORIDE LEVEL 109 MMOL/L (98-107); CREATININE FOR GFR 0.89 MG/DL (0.55-1.30); GLOMERULAR FILTRATION RATE > 60.0 (>39); GLUCOSE, FASTING 110 MG/DL (74-106); MAGNESIUM LEVEL 1.8 MG/DL (1.8-2.4); POTASSIUM SERUM 4.4 MMOL/L (3.5-5.1); SODIUM LEVEL 142 MMOL/L (136-145)
[2023-12-01 09:30] LABS: CK-MB VALUE MASS 1.2 NG/ML (<3.6)
[2023-12-01 09:31] LABS: CPK CREATINE PHOSPHOKINASE 38 U/L (34-145); MB/CK RELATIVE INDEX 3.15 (< OR =4)
[2023-12-01] MEDS: NS 500 ML IV ONE (10:14)
[2023-12-01] MEDS: CALCIUM GLUCONATE 1,000 MG in D5W MINI-BAG PLUS 100 ML IV ONE ×2 (11:06→17:28)
[2023-12-01] MEDS: MAG SULF 1GM/100ML (MAG RUN) 1 GM in IV 1 EA IV ONE (12:18)
[2023-12-01 14:09] LABS: IONIZED CALCIUM 4.7 MG/DL (4.5-5.3)
[2023-12-01 14:33] LABS: POTASSIUM SERUM 4.9 MMOL/L (3.5-5.1)
[2023-12-01 14:40] LABS: CK-MB VALUE MASS < 1.0 NG/ML (<3.6)
[2023-12-01 14:41] LABS: CPK CREATINE PHOSPHOKINASE 46 U/L (34-145); MB/CK RELATIVE INDEX 2.17 (< OR =4)
[2023-12-01 20:42] LABS: CK-MB VALUE MASS 1.1 NG/ML (<3.6); MAGNESIUM LEVEL 1.8 MG/DL (1.8-2.4); POTASSIUM SERUM 4.3 MMOL/L (3.5-5.1)
[2023-12-01 20:44] LABS: MB/CK RELATIVE INDEX 3.05 (< OR =4)
[2023-12-02] VITALS (7 sets, daily range): BP systolic 108–140; BP diastolic 54–83; TEMP 96.9–97.7; O2SAT 92–96
[2023-12-02 02:33] LABS: CK-MB VALUE MASS 1.6 NG/ML (<3.6); MAGNESIUM LEVEL 1.8 MG/DL (1.8-2.4)
[2023-12-02 02:48] LABS: MB/CK RELATIVE INDEX 3.63 (< OR =4)
[2023-12-02 06:27] LABS: BLOOD UREA NITROGEN 13 MG/DL (9-23); CALCIUM LEVEL 8.8 MG/DL (8.3-10.6); CARBON DIOXIDE LEVEL 27 MMOL/L (20-31); CHLORIDE LEVEL 111 MMOL/L (98-107); CREATININE FOR GFR 0.87 MG/DL (0.55-1.30); GLOMERULAR FILTRATION RATE > 60.0 (>39); GLUCOSE, FASTING 113 MG/DL (74-106); MAGNESIUM LEVEL 1.8 MG/DL (1.8-2.4); POTASSIUM SERUM 4.7 MMOL/L (3.5-5.1); SODIUM LEVEL 144 MMOL/L (136-145)
[2023-12-02] MEDS ORDERED: MIDO5TA PO (08:06)
[2023-12-02] MEDS ORDERED: DILT60TA PO (08:06)
[2023-12-03] VITALS: BP 127/64; TEMP 96.9; O2SAT 94
[2023-12-03 04:00] VITALS: BP 113/74; TEMP 96.7; O2SAT 93
[2023-12-03 06:44] LABS: BLOOD UREA NITROGEN 14 MG/DL (9-23); CALCIUM LEVEL 8.8 MG/DL (8.3-10.6); CARBON DIOXIDE LEVEL 27 MMOL/L (20-31); CHLORIDE LEVEL 111 MMOL/L (98-107); GLOMERULAR FILTRATION RATE > 60.0 (>39); GLUCOSE, FASTING 116 MG/DL (74-106); MAGNESIUM LEVEL 1.6 MG/DL (1.8-2.4); POTASSIUM SERUM 4.5 MMOL/L (3.5-5.1); SODIUM LEVEL 144 MMOL/L (136-145)
[2023-12-03 08:16] VITALS: BP 119/67; TEMP 97.1; O2SAT 92
[2023-12-03] MEDS: ONDANSETRON 4MG 2ML VIAL IV ONE (11:35)
[2023-12-03 12:00] VITALS: BP_SYST 105; BP_SYST 117; BP_SYST 96; BP_DIAS 54; BP_DIAS 59; BP_DIAS 60; TEMP 97.4; O2SAT 97
[2023-12-03] MEDS ORDERED: ONDANSETRON 4MG 2ML VIAL IV PRN (15:00)
[2023-12-03] MEDS: MAG SULF 1GM/100ML (MAG RUN) 1 GM in IV 1 EA IV ONE (15:11)
[2023-12-03 15:42] VITALS: BP 112/80; TEMP 97.5; O2SAT 93
[2023-12-03] MEDS: CALCIUM GLUCONATE 1,000 MG in D5W MINI-BAG PLUS 100 ML IV ONE (16:15)
[2023-12-03 20:55] VITALS: BP 129/72; TEMP 98.3; O2SAT 98
[2023-12-03] MEDS: MAGNESIUM OXIDE 400MG TAB (MAG-OX) PO SCH (21:02)
[2023-12-04] VITALS: BP 108/70; TEMP 97.5; O2SAT 95
[2023-12-04 04:05] VITALS: BP 115/55; TEMP 97.3; O2SAT 93
[2023-12-04 06:09] VITALS: BP 122/70; TEMP 97.2; O2SAT 93
[2023-12-04 06:47] LABS: BLOOD UREA NITROGEN 11 MG/DL (9-23); CARBON DIOXIDE LEVEL 28 MMOL/L (20-31); CHLORIDE LEVEL 105 MMOL/L (98-107); CREATININE FOR GFR 0.95 MG/DL (0.55-1.30); GLOMERULAR FILTRATION RATE > 60.0 (>39); GLUCOSE, FASTING 104 MG/DL (74-106); MAGNESIUM LEVEL 1.8 MG/DL (1.8-2.4); POTASSIUM SERUM 4.3 MMOL/L (3.5-5.1); SODIUM LEVEL 139 MMOL/L (136-145)
[2023-12-05 14:26] VITALS: BP 134/63; TEMP 97.8; O2SAT 96
[2023-12-05 15:03] LABS: IONIZED CALCIUM 4.6 MG/DL (4.5-5.3)
[2023-12-05 15:32] VITALS: BP 131/63; TEMP 97.7; O2SAT 99
[2023-12-05 15:38] LABS: BLOOD UREA NITROGEN 14 MG/DL (9-23); CALCIUM LEVEL 8.6 MG/DL (8.3-10.6); CARBON DIOXIDE LEVEL 28 MMOL/L (20-31); CHLORIDE LEVEL 108 MMOL/L (98-107); CPK CREATINE PHOSPHOKINASE 48 U/L (34-145); CREATININE FOR GFR 0.88 MG/DL (0.55-1.30); GLOMERULAR FILTRATION RATE > 60.0 (>39); GLUCOSE, FASTING 103 MG/DL (74-106); MAGNESIUM LEVEL 1.6 MG/DL (1.8-2.4); POTASSIUM SERUM 4.1 MMOL/L (3.5-5.1); SODIUM LEVEL 142 MMOL/L (136-145)
[2023-12-05 15:42] LABS: CK-MB VALUE MASS 2.4 NG/ML (<3.6)
[2023-12-05 15:44] VITALS: BP 131/63
[2023-12-05] MEDS: METOPROLOL TART 50 MG TAB PO ONE (15:44)
[2023-12-05 16:14] LABS: PROCALCITONIN <0.04 ng/ml
[2023-12-05] MEDS ORDERED: PERCOCET 5MG/325MG TAB PO PRN (17:15)
[2023-12-05] MEDS: MAG SULF 1GM/100ML (MAG RUN) 1 GM in IV 1 EA IV ONE (18:06)
[2023-12-05 20:23] VITALS: BP 127/69; TEMP 97.2; O2SAT 97
[2023-12-05] MEDS: oxyCODONE 5MG TAB PO PRN (20:50)
[2023-12-06 00:08] VITALS: BP 132/61; TEMP 97.4; O2SAT 95
[2023-12-06 04:01] VITALS: BP 115/56; TEMP 97.9; O2SAT 95
[2023-12-06 06:51] LABS: BLOOD UREA NITROGEN 12 MG/DL (9-23); CALCIUM LEVEL 8.8 MG/DL (8.3-10.6); CARBON DIOXIDE LEVEL 30 MMOL/L (20-31); CHLORIDE LEVEL 108 MMOL/L (98-107); CREATININE FOR GFR 0.89 MG/DL (0.55-1.30); GLOMERULAR FILTRATION RATE > 60.0 (>39); GLUCOSE, FASTING 110 MG/DL (74-106); MAGNESIUM LEVEL 1.8 MG/DL (1.8-2.4); POTASSIUM SERUM 4.3 MMOL/L (3.5-5.1); SODIUM LEVEL 143 MMOL/L (136-145)
[2023-12-06 08:25] VITALS: BP 116/57; TEMP 97.6; O2SAT 94
[2023-12-06 12:29] VITALS: BP 126/59; TEMP 97.3; O2SAT 91
[2023-12-06 20:00] VITALS: BP 128/60; TEMP 97.9; O2SAT 96
[2023-12-06 22:15] VITALS: BP 119/50; TEMP 97.8; O2SAT 94
[2023-12-07 06:20] VITALS: BP 127/71; TEMP 97.9; O2SAT 95
[2023-12-07 14:00] VITALS: BP 127/71; TEMP 97.2; O2SAT 94
[2023-12-08 06:26] VITALS: BP 128/72; TEMP 97.3; O2SAT 95
[2023-12-08 09:07] VITALS: TEMP 97.2
[2023-12-08 11:00] LABS: BASO % 0.5 % (0.0-1.0); EOS # 0.3 10^3/uL (0.0-0.5); EOS % 4.6 % (0.0-3.0); HEMATOCRIT 41.8 % (36.0-47.0); HEMOGLOBIN 13.8 g/dl (12.0-15.5); LYMPH # 1.3 10^3/uL (1.5-5.0); LYMPH % 21.4 % (24.0-44.0); MEAN CORPUSCULAR HEMOGLOBIN 30.1 pg (27.0-33.0); MEAN CORPUSCULAR VOLUME 91.1 fl (80.0-96.0); MONO # 0.7 10^3/uL (0.0-0.8); MONO % 10.4 % (2.0-8.0); NEUTROPHILS # 3.9 10^3/uL (1.5-8.5); NEUTROPHILS % 62.6 % (36.0-66.0); PLATELET COUNT, AUTOMATED 228 10^3/uL (150-450); RED BLOOD COUNT 4.59 10^6/uL (4.00-5.40); WHITE BLOOD COUNT 6.3 10^3/uL (4.0-10.0)
[2023-12-08 11:28] LABS: BLOOD UREA NITROGEN 11 MG/DL (9-23); CALCIUM LEVEL 9.2 MG/DL (8.3-10.6); CARBON DIOXIDE LEVEL 26 MMOL/L (20-31); CHLORIDE LEVEL 108 MMOL/L (98-107); CREATININE FOR GFR 0.85 MG/DL (0.55-1.30); GLOMERULAR FILTRATION RATE > 60.0 (>39); GLUCOSE, FASTING 105 MG/DL (74-106); POTASSIUM SERUM 4.4 MMOL/L (3.5-5.1); SODIUM LEVEL 142 MMOL/L (136-145)
[2023-12-09 05:16] VITALS: BP 139/74; TEMP 97.3; O2SAT 95
[2023-12-09 10:50] VITALS: BP 143/75; TEMP 97.7; O2SAT 99
[2023-12-09 11:51] LABS: ERYTHROCYTE SEDIMENTATION RATE 22 mm/hr (0-30)
[2023-12-09 11:59] LABS: PROCALCITONIN <0.04 ng/ml
[2023-12-09 14:00] VITALS: BP 143/63; TEMP 97.3; O2SAT 97
[2023-12-09 14:11] LABS: ALKALINE PHOSPHATASE 57 U/L (46-116); ALT/SGPT 35 U/L (7.0-40); AST/SGOT 24 U/L (<34); BILIRUBIN,TOTAL 0.9 MG/DL (0.3-1.2); BLOOD UREA NITROGEN 9 MG/DL (9-23); CALCIUM LEVEL 9.1 MG/DL (8.3-10.6); CARBON DIOXIDE LEVEL 26 MMOL/L (20-31); CHLORIDE LEVEL 110 MMOL/L (98-107); CREATININE FOR GFR 0.84 MG/DL (0.55-1.30); GLOMERULAR FILTRATION RATE > 60.0 (>39); GLUCOSE, FASTING 123 MG/DL (74-106); POTASSIUM SERUM 4.4 MMOL/L (3.5-5.1); SODIUM LEVEL 142 MMOL/L (136-145); TOTAL PROTEIN 5.4 G/DL (5.7-8.2)
[2023-12-09 14:52] LABS: BASO % 0.4 % (0.0-1.0); EOS # 0.2 10^3/uL (0.0-0.5); EOS % 4.4 % (0.0-3.0); HEMATOCRIT 41.3 % (36.0-47.0); HEMOGLOBIN 13.4 g/dl (12.0-15.5); LYMPH # 1.1 10^3/uL (1.5-5.0); LYMPH % 21.4 % (24.0-44.0); MEAN CORPUSCULAR HEMOGLOBIN 29.8 pg (27.0-33.0); MEAN CORPUSCULAR HGB CONC 32.4 g/dl (32.0-36.5); MEAN CORPUSCULAR VOLUME 91.8 fl (80.0-96.0); MONO # 0.6 10^3/uL (0.0-0.8); MONO % 11.6 % (2.0-8.0); NEUTROPHILS # 3.1 10^3/uL (1.5-8.5); PLATELET COUNT, AUTOMATED 217 10^3/uL (150-450)
[2023-12-09 20:03] VITALS: BP 146/73; TEMP 97.5; O2SAT 93
[2023-12-10 05:45] VITALS: BP 143/72; TEMP 97.2; O2SAT 94
[2023-12-10 14:00] VITALS: BP 141/72; TEMP 97.3; O2SAT 96
[2023-12-10 20:04] VITALS: BP 137/72; TEMP 96.8; O2SAT 95
[2023-12-11 05:34] VITALS: BP 127/65; TEMP 97.7; O2SAT 94
[2023-12-11] MEDS: APIXABAN 5 MG TAB (ELIQUIS) PO SCH (08:18)
[2023-12-11] MEDS ORDERED: LEVO1TAB40 PO (10:22)
[2023-12-12] MEDS ORDERED: LEVO1TAB40 PO (19:03)
[2023-12-12] MEDS ORDERED: FURO20TA2 PO (19:08)
== END 2023-12-11 13:04 | disposition home health service (06) | DRG 308 ==
LOC: M ED 14:09 → EDBD 14:09 → M ED INP 16:50 → M PCU 21:18 → M MSPAV 11-23 15:13 → M PCU 11-30 07:46 → M MSPAV 12-06 22:15
PROVIDERS: ADMIT General Practice; ATTEND Internal Medicine
DX: I48.19 Other persistent atrial fibrillation (principal); J96.01 Acute respiratory failure with hypoxia; I50.31 Acute diastolic (congestive) heart failure; Z68.42 Body mass index [BMI] 45.0-49.9, adult; I11.0 Hypertensive heart disease with heart failure; I47.20 Ventricular tachycardia, unspecified; E83.51 Hypocalcemia; E66.01 Morbid (severe) obesity due to excess calories; M48.00 Spinal stenosis, site unspecified; E11.9 Type 2 diabetes mellitus without complications; I95.1 Orthostatic hypotension; G89.29 Other chronic pain; E83.42 Hypomagnesemia; Z79.01 Long term (current) use of anticoagulants; Z79.899 Other long term (current) drug therapy; Z88.8 Allergy status to other drugs, medicaments and biological substances; I08.1 Rheumatic disorders of both mitral and tricuspid valves

== ENCOUNTER 2023-12-12 14:16 | Inpatient (IN) | payer MEDICARE ==
[~2023-12-12] VITALS: Ht 170.2 cm; Wt 120.9 kg
[~2023-12-12 14:16] MED LIST changes: +DILT240C83 PO; +DILT60TA PO; +FLUTISP; +LEVO1TAB40 PO; +METO1TAB33 PO; +MIDO5TA PO; +MYRB50TA PO
[2023-12-12 15:05] LABS: VENOUS BASE EXCESS 1.3 (-2.0-2.0); VENOUS HCO3 23.4 MMOL/L (23.0-27.0); VENOUS O2 SATURATION 61.4 % (60.0-80.0); VENOUS PARTIAL PRESSURE CO2 30.2 mmHg (38.0-50.0); VENOUS PARTIAL PRESSURE O2 27.2 mmHg (30.0-50.0); VENOUS PH 7.507 UNITS (7.330-7.430); VENOUS STANDARD HCO3 24.7 MMOL/L; VENOUS TOTAL CO2 24.3 MMOL/L (24.0-28.0)
[2023-12-12 15:11] LABS: BASO # 0.1 10^3/uL (0.0-0.2); BASO % 0.7 % (0.0-1.0); EOS # 0.1 10^3/uL (0.0-0.5); EOS % 1.8 % (0.0-3.0); HEMATOCRIT 42.6 % (36.0-47.0); LYMPH # 1.1 10^3/uL (1.5-5.0); LYMPH % 15.7 % (24.0-44.0); MEAN CORPUSCULAR HEMOGLOBIN 29.5 pg (27.0-33.0); MEAN CORPUSCULAR HGB CONC 32.9 g/dl (32.0-36.5); MEAN CORPUSCULAR VOLUME 89.9 fl (80.0-96.0); MONO # 0.7 10^3/uL (0.0-0.8); MONO % 10.4 % (2.0-8.0); NEUTROPHILS # 4.9 10^3/uL (1.5-8.5); NEUTROPHILS % 71.1 % (36.0-66.0); PLATELET COUNT, AUTOMATED 213 10^3/uL (150-450); RED BLOOD COUNT 4.74 10^6/uL (4.00-5.40); WHITE BLOOD COUNT 6.8 10^3/uL (4.0-10.0)
[2023-12-12 15:27] LABS: INR 1.33; PROTHROMBIN TIME 16.1 SECONDS (12.5-14.5)
[2023-12-12 15:40] LABS: CK-MB VALUE MASS 1.6 NG/ML (<3.6)
[2023-12-12 15:42] LABS: ALBUMIN 3.1 G/DL (3.2-5.2); ALKALINE PHOSPHATASE 55 U/L (46-116); ALT/SGPT 40 U/L (7.0-40); AST/SGOT 41 U/L (<34); BILIRUBIN,DIRECT 0.3 MG/DL (<0.4); BILIRUBIN,TOTAL 1.1 MG/DL (0.3-1.2); BLOOD UREA NITROGEN 11 MG/DL (9-23); CARBON DIOXIDE LEVEL 25 MMOL/L (20-31); CHLORIDE LEVEL 109 MMOL/L (98-107); CREATININE FOR GFR 0.87 MG/DL (0.55-1.30); GLOMERULAR FILTRATION RATE > 60.0 (>39); GLUCOSE, FASTING 111 MG/DL (74-106); POTASSIUM SERUM 4.5 MMOL/L (3.5-5.1); SODIUM LEVEL 142 MMOL/L (136-145); TOTAL PROTEIN 5.8 G/DL (5.7-8.2)
[2023-12-12 15:44] LABS: THYROXINE (T4) 13.9 UG/DL (4.5-10.9)
[2023-12-12 15:51] LABS: CPK CREATINE PHOSPHOKINASE 51 U/L (34-145); MB/CK RELATIVE INDEX 3.13 (< OR =4)
[2023-12-12] MEDS ORDERED: ISOVUE-370 76% 100ML VIAL As Ordered ONE (16:15)
[2023-12-12] MEDS: FUROSEMIDE 40 MG TAB PO ONE (17:06)
[2023-12-12 17:32] LABS: LIPASE 22 U/L (12-53)
[2023-12-12 17:33] LABS: CK-MB VALUE MASS 1.2 NG/ML (<3.6)
[2023-12-12 17:41] LABS: PROCALCITONIN <0.04 ng/ml
[2023-12-12 17:42] LABS: CPK CREATINE PHOSPHOKINASE 45 U/L (34-145); MB/CK RELATIVE INDEX 2.66 (< OR =4)
[2023-12-12] MEDS ORDERED: LEVO1TAB40 PO (19:03)
[2023-12-12] MEDS ORDERED: FURO20TA2 PO (19:08)
[2023-12-12] MEDS ORDERED: MAALOX 30 ML SUSP *UDC PO PRN (19:20)
[2023-12-12] MEDS ORDERED: MOM 30ML SUSPENSION UDC PO PRN (19:20)
[2023-12-12] MEDS: MORPHINE 2 MG/ML 1ML VIAL IV ONE (19:30)
[2023-12-12] MEDS ORDERED: HOME MED LIST COMPLETE! XX SCH (19:35)
[2023-12-12] MEDS ORDERED: LIDOCAINE 5% (LIDODERM) PATCH TD PRN (20:45)
[2023-12-12] MEDS: FUROSEMIDE 40MG/4ML VIAL IV ONE (20:50)
[2023-12-12] MEDS: APIXABAN 5 MG TAB (ELIQUIS) PO SCH (21:49)
[2023-12-12] MEDS: CIPROFLOXACIN HC OTIC SUSPENSION AU SCH (21:49)
[2023-12-12] MEDS: PREGABALIN 75 MG CAP(LYRICA) PO SCH (21:49)
[2023-12-12] MEDS: DOCUSATE SODIUM 100MG CAPSULE PO SCH (21:49)
[2023-12-12 22:06] VITALS: BP 155/70; TEMP 97.7; O2SAT 96
[2023-12-12] MEDS: ACETAMINOPHEN TAB 650MG DOSE (2X325MG) PO PRN (22:25)
[2023-12-12] MEDS: CALCIUM/VITAMIN D 500 MG TAB PO SCH (22:25)
[2023-12-13] MEDS ORDERED: DEXTROSE 50% 50ML SYRINGE IV PRN (01:30)
[2023-12-13] MEDS ORDERED: GLUCAGON INJ 1MG VIAL SC PRN (01:30)
[2023-12-13] MEDS ORDERED: GLUCOSE 4GM CHEW TABLET PO PRN (01:30)
[2023-12-13 02:12] LABS: CALCIUM LEVEL 9.3 MG/DL (8.3-10.6); CREATININE FOR GFR 1.03 MG/DL (0.55-1.30); GLOMERULAR FILTRATION RATE 55.8 (>39); POTASSIUM SERUM 3.5 MMOL/L (3.5-5.1)
[2023-12-13 05:18] VITALS: BP 150/71; TEMP 98.2; O2SAT 95
[2023-12-13] MEDS: POTASSIUM CHLORIDE 10MEQ SR TABLET PO ONE (05:18)
[2023-12-13] MEDS: LevoFLOXacin 750 MG TABLET PO ONE (05:18)
[2023-12-13 06:10] LABS: HEMATOCRIT 42.5 % (36.0-47.0); HEMOGLOBIN 13.9 g/dl (12.0-15.5); MEAN CORPUSCULAR HEMOGLOBIN 29.6 pg (27.0-33.0); MEAN CORPUSCULAR HGB CONC 32.7 g/dl (32.0-36.5); MEAN CORPUSCULAR VOLUME 90.6 fl (80.0-96.0); PLATELET COUNT, AUTOMATED 194 10^3/uL (150-450); RED BLOOD COUNT 4.69 10^6/uL (4.00-5.40); WHITE BLOOD COUNT 5.5 10^3/uL (4.0-10.0)
[2023-12-13 06:38] LABS: ALBUMIN 3.2 G/DL (3.2-5.2); BILIRUBIN,TOTAL 1.1 MG/DL (0.3-1.2); CALCIUM LEVEL 9.5 MG/DL (8.3-10.6); CREATININE FOR GFR 1.04 MG/DL (0.55-1.30); GLOMERULAR FILTRATION RATE 55.1 (>39); MAGNESIUM LEVEL 1.7 MG/DL (1.8-2.4); POTASSIUM SERUM 3.5 MMOL/L (3.5-5.1); TOTAL PROTEIN 5.8 G/DL (5.7-8.2)
[2023-12-13] MEDS ORDERED: MYRBETRIQ PO SCH (09:00)
[2023-12-13] MEDS: MAGNESIUM OXIDE 400MG TAB (MAG-OX) PO SCH (09:15)
[2023-12-13] MEDS: FUROSEMIDE 20 MG TAB PO SCH (09:15)
[2023-12-13] MEDS: POTASSIUM CHLORIDE 10MEQ SR TABLET PO SCH (09:17)
[2023-12-13] MEDS: CYANOCOBALAMIN 500 MCG TAB PO SCH (09:17)
[2023-12-13] MEDS: VITAMIN D 1,000 INTERNATIONAL UNITS TABLET PO SCH (09:18)
[2023-12-13] MEDS: FLUTICASONE PROP 0.05% NASAL SPRAY 16 GM (FLONASE) SCH (09:18)
[2023-12-13] MEDS: INSULIN LISPRO (NovoLOG) PER UNIT SC SCH ×2 (09:19→20:31)
[2023-12-13] MEDS: MAG SULF 1GM/100ML (MAG RUN) 1 GM in IV 1 EA IV ONE (09:19)
[2023-12-13] MEDS: PYRIDOXINE 50 MG TAB PO SCH (12:26)
[2023-12-13 14:00] VITALS: BP 147/72; TEMP 97.5; O2SAT 96
[2023-12-13 16:01] LABS: APPEARANCE, URINE CLOUDY (CLEAR); BACTERIA, URINE AUTO NEGATIVE (NEGATIVE); BILIRUBIN, URINE AUTO NEGATIVE (NEGATIVE); BLOOD, URINE BLOOD 2+ (NEGATIVE); COLOR, URINE YELLOW (YELLOW); GLUCOSE, URINE (UA) AUTO NEGATIVE (NEGATIVE); KETONE, URINE AUTO NEGATIVE (NEGATIVE); LEUKOCYTE ESTERASE, URINE AUTO 3+ (NEGATIVE); NITRITE, URINE AUTO NEGATIVE (NEGATIVE); PROTEIN, URINE AUTO NEGATIVE (NEGATIVE); RBC, URINE AUTO 41 /HPF (0-3); SPECIFIC GRAVITY URINE AUTO 1.021 (1.002-1.035); SQUAMOUS EPITHELIAL CELL UR AU 22 /HPF (0-6); UROBILINOGEN, URINE AUTO 0.2 mg/dL (0.0-2.0); WBC, URINE AUTO 53 /HPF (0-3)
[2023-12-13 20:15] VITALS: BP 149/82; TEMP 96.8; O2SAT 94
[2023-12-14] VITALS (8 sets, daily range): BP systolic 109–158; BP diastolic 54–82; TEMP 97.9–98.4; O2SAT 70–97
[2023-12-14 05:47] LABS: HEMATOCRIT 43.3 % (36.0-47.0); HEMOGLOBIN 14.1 g/dl (12.0-15.5); MEAN CORPUSCULAR HEMOGLOBIN 29.6 pg (27.0-33.0); MEAN CORPUSCULAR HGB CONC 32.6 g/dl (32.0-36.5); MEAN CORPUSCULAR VOLUME 90.8 fl (80.0-96.0); PLATELET COUNT, AUTOMATED 208 10^3/uL (150-450); RED BLOOD COUNT 4.77 10^6/uL (4.00-5.40); WHITE BLOOD COUNT 6.5 10^3/uL (4.0-10.0)
[2023-12-14 06:10] LABS: BLOOD UREA NITROGEN 14 MG/DL (9-23); CALCIUM LEVEL 9.3 MG/DL (8.3-10.6); CARBON DIOXIDE LEVEL 25 MMOL/L (20-31); CHLORIDE LEVEL 103 MMOL/L (98-107); CREATININE FOR GFR 0.94 MG/DL (0.55-1.30); GLOMERULAR FILTRATION RATE > 60.0 (>39); GLUCOSE, FASTING 113 MG/DL (74-106); MAGNESIUM LEVEL 1.8 MG/DL (1.8-2.4); POTASSIUM SERUM 3.9 MMOL/L (3.5-5.1); SODIUM LEVEL 137 MMOL/L (136-145)
[2023-12-15] VITALS (12 sets, daily range): BP systolic 113–120; BP diastolic 58–81; TEMP 97.3–97.9; O2SAT 76–96
[2023-12-15] MEDS ORDERED: PHENAZOPYRIDINE 100 MG TAB PO PRN (03:30)
[2023-12-15 05:34] LABS: HEMATOCRIT 40.6 % (36.0-47.0); HEMOGLOBIN 13.1 g/dl (12.0-15.5); MEAN CORPUSCULAR HEMOGLOBIN 29.6 pg (27.0-33.0); MEAN CORPUSCULAR HGB CONC 32.3 g/dl (32.0-36.5); MEAN CORPUSCULAR VOLUME 91.6 fl (80.0-96.0); PLATELET COUNT, AUTOMATED 179 10^3/uL (150-450); RED BLOOD COUNT 4.43 10^6/uL (4.00-5.40); WHITE BLOOD COUNT 6.1 10^3/uL (4.0-10.0)
[2023-12-15 05:55] LABS: CALCIUM LEVEL 9.3 MG/DL (8.3-10.6); CREATININE FOR GFR 0.99 MG/DL (0.55-1.30); GLOMERULAR FILTRATION RATE 58.4 (>39); MAGNESIUM LEVEL 1.6 MG/DL (1.8-2.4)
[2023-12-15] MEDS: CEFDINIR 300 MG CAP (OMNICEF) PO SCH (08:08)
[2023-12-15] MEDS: MAGNESIUM OXIDE 400MG TAB (MAG-OX) PO SCH (12:13)
[2023-12-15] MEDS: MAG SULF 1GM/100ML (MAG RUN) 1 GM in IV 1 EA IV SCH (12:14)
[2023-12-15] MEDS: FOSFOMYCIN TROMETHAMINE 3 GM POWDER PACKET (MONUROL) PO ONE (13:05)
[2023-12-15] MEDS: NYSTATIN 100,000 UNITS/GM TOPICAL PWD 15GM TOP SCH (17:27)
[2023-12-16 05:30] VITALS: BP 131/78; TEMP 97.9; O2SAT 94
[2023-12-16 08:00] VITALS: BP 112/56; TEMP 98.1; O2SAT 93
[2023-12-16] MEDS: TORSEMIDE 20 MG TAB PO SCH (11:14)
[2023-12-16 14:00] VITALS: BP 128/77; TEMP 96.3; O2SAT 95
[2023-12-16 20:50] VITALS: BP 128/74; TEMP 97.7; O2SAT 94
[2023-12-17 05:45] VITALS: BP 126/73; TEMP 97.5; O2SAT 93
[2023-12-17 10:35] LABS: HEMATOCRIT 44.1 % (36.0-47.0); HEMOGLOBIN 14.3 g/dl (12.0-15.5); MEAN CORPUSCULAR HEMOGLOBIN 29.3 pg (27.0-33.0); MEAN CORPUSCULAR HGB CONC 32.4 g/dl (32.0-36.5); MEAN CORPUSCULAR VOLUME 90.4 fl (80.0-96.0); PLATELET COUNT, AUTOMATED 216 10^3/uL (150-450); RED BLOOD COUNT 4.88 10^6/uL (4.00-5.40); WHITE BLOOD COUNT 8.1 10^3/uL (4.0-10.0)
[2023-12-17] MEDS: ERTAPENEM SODIUM 1 GM in NS MINI-BAG PLUS 50 ML IV SCH (11:20)
[2023-12-17 14:00] VITALS: BP 126/87; TEMP 97.6; O2SAT 96
[2023-12-17 20:00] VITALS: BP 125/87; TEMP 98.1; O2SAT 95
[2023-12-18 06:00] VITALS: BP 128/83; TEMP 97; O2SAT 93
[2023-12-18 14:00] VITALS: BP 128/78; TEMP 96.4; O2SAT 96
[2023-12-18 20:03] VITALS: BP 126/76; TEMP 98.8; O2SAT 94
[2023-12-19 05:53] VITALS: BP 121/69; TEMP 98.4; O2SAT 93
[2023-12-19] MEDS ORDERED: METH1000 PO (12:09)
== END 2023-12-19 13:57 | disposition home health service (06) | DRG 690 ==
LOC: EDBD 14:16 → M ED 14:16 → EEVIPCON 19:18 → M ED INP 19:18 → ENRESERV 20:38 → M MSPAV 22:06
PROVIDERS: ADMIT Family Medicine; ATTEND Student in an Organized Health Care Education/Training Program
DX: N39.0 Urinary tract infection, site not specified (principal); G62.81 Critical illness polyneuropathy; I48.19 Other persistent atrial fibrillation; I50.32 Chronic diastolic (congestive) heart failure; R26.89 Other abnormalities of gait and mobility; E11.9 Type 2 diabetes mellitus without complications; E66.9 Obesity, unspecified; M54.50 Low back pain, unspecified; G89.29 Other chronic pain; M48.07 Spinal stenosis, lumbosacral region; I27.20 Pulmonary hypertension, unspecified; H60.93 Unspecified otitis externa, bilateral; B96.20 Unspecified Escherichia coli [E. coli] as the cause of diseases classified elsewhere; I34.0 Nonrheumatic mitral (valve) insufficiency; I11.0 Hypertensive heart disease with heart failure; E05.90 Thyrotoxicosis, unspecified without thyrotoxic crisis or storm; Z95.0 Presence of cardiac pacemaker; Z90.49 Acquired absence of other specified parts of digestive tract; Z90.79 Acquired absence of other genital organ(s); Z79.01 Long term (current) use of anticoagulants; Z79.899 Other long term (current) drug therapy; Z11.52 Encounter for screening for COVID-19; Z88.8 Allergy status to other drugs, medicaments and biological substances

== ENCOUNTER → 2023-12-23 | Outpatient (CLI) | payer MEDICARE ==
[~2023-12-23] MED LIST changes: +FURO20TA2 PO; +METH1000 PO
[2023-12-23 15:57] LABS: HEMATOCRIT 40.5 % (36.0-47.0); MEAN CORPUSCULAR HEMOGLOBIN 29.7 pg (27.0-33.0); MEAN CORPUSCULAR HGB CONC 32.1 g/dl (32.0-36.5); MEAN CORPUSCULAR VOLUME 92.7 fl (80.0-96.0); PLATELET COUNT, AUTOMATED 200 10^3/uL (150-450); RED BLOOD COUNT 4.37 10^6/uL (4.00-5.40)
[2023-12-23 16:01] LABS: APPEARANCE, URINE CLOUDY (CLEAR); BACTERIA, URINE AUTO NEGATIVE (NEGATIVE); BILIRUBIN, URINE AUTO NEGATIVE (NEGATIVE); BLOOD, URINE BLOOD 1+ (NEGATIVE); COLOR, URINE YELLOW (YELLOW); GLUCOSE, URINE (UA) AUTO NEGATIVE (NEGATIVE); KETONE, URINE AUTO NEGATIVE (NEGATIVE); LEUKOCYTE ESTERASE, URINE AUTO NEGATIVE (NEGATIVE); MUCUS, URINE SMALL (NEGATIVE); NITRITE, URINE AUTO NEGATIVE (NEGATIVE); PROTEIN, URINE AUTO 2+ mg/dL (NEGATIVE); RBC, URINE AUTO 23 /HPF (0-3); SQUAMOUS EPITHELIAL CELL UR AU 9 /HPF (0-6); UROBILINOGEN, URINE AUTO 0.2 mg/dL (0.0-2.0); WBC, URINE AUTO 28 /HPF (0-3)
[2023-12-23 16:35] LABS: ALKALINE PHOSPHATASE 78 U/L (46-116); ALT/SGPT 27 U/L (7.0-40); AST/SGOT 21 U/L (<34); BILIRUBIN,TOTAL 0.7 MG/DL (0.3-1.2); BLOOD UREA NITROGEN 24 MG/DL (9-23); CALCIUM LEVEL 8.8 MG/DL (8.3-10.6); CARBON DIOXIDE LEVEL 33 MMOL/L (20-31); CHLORIDE LEVEL 104 MMOL/L (98-107); CHOLESTEROL LEVEL 155 MG/DL (<200); CHOLESTEROL RISK RATIO 4.36 (<5); CREATININE FOR GFR 0.85 MG/DL (0.55-1.30); GLOMERULAR FILTRATION RATE > 60.0 (>39); GLUCOSE, FASTING 155 MG/DL (74-106); HDL CHOLESTEROL 35.5 MG/DL (>40); LDL CHOLESTEROL 68.7 MG/DL (<100); MAGNESIUM LEVEL 1.7 MG/DL (1.8-2.4); NON-HDL-C 119.5 MG/DL; POTASSIUM SERUM 3.5 MMOL/L (3.5-5.1); SODIUM LEVEL 139 MMOL/L (136-145); TOTAL PROTEIN 5.7 G/DL (5.7-8.2); TRIGLYCERIDES LEVEL 254 MG/DL (<150)
== END ==
LOC: M PLALAB 13:44
PROVIDERS: ATTEND Internal Medicine Hematology
DX: E83.42 Hypomagnesemia (principal); R39.9 Unspecified symptoms and signs involving the genitourinary system; I50.33 Acute on chronic diastolic (congestive) heart failure; E11.9 Type 2 diabetes mellitus without complications

== ENCOUNTER → 2024-01-08 | Outpatient (CLI) | payer MEDICARE ==
[2024-01-08 16:36] LABS: THYROID STIMULATING HORMONE 0.477 uIU/ML (0.55-4.78)
[2024-01-08 17:20] LABS: COLOR, URINE MANUAL YELLOW (YELLOW)
[2024-01-08 17:21] LABS: BILIRUBIN, URINE MANUAL NEGATIVE (NEGATIVE); BLOOD URINE MANUAL NEGATIVE (NEGATIVE); GLUCOSE, URINE (UA) MANUAL NEGATIVE (NEGATIVE); KETONE, URINE MANUAL NEGATIVE (NEGATIVE); LEUKOCYTE ESTERASE, URINE MAN POSITIVE (NEGATIVE); NITRITE, URINE MANUAL POSITIVE (NEGATIVE); PROTEIN, URINE MANUAL TRACE mg/dL (NEGATIVE); UROBILINOGEN, URINE MANUAL NORMAL (NORMAL)
[2024-01-08 18:00] LABS: APPEARANCE, URINE MANUAL HAZY (CLEAR); WBC, URINE 15-20 /hpf (0-3)
[2024-01-08 18:01] LABS: BACTERIA, URINE MOD AMOUNT; HYALINE CAST, URINE 0-1 /lpf (0-1); RBC, URINE 0-1 /hpf (0-3); SQUAMOUS EPITHELIAL CELL URINE SMALL AMOUNT /hpf (SMALL AMT)
[2024-01-09 09:40] LABS: FREE T4 1.38 NG/DL (0.89-1.76)
[2024-01-09 10:55] LABS: FREE T3 3.3 PG/ML (2.3-4.2)
== END ==
LOC: M PLALAB 14:40
PROVIDERS: ATTEND Internal Medicine Hematology
DX: R79.89 Other specified abnormal findings of blood chemistry (principal); E11.9 Type 2 diabetes mellitus without complications; Z79.899 Other long term (current) drug therapy

== ENCOUNTER 2024-03-08 15:17 | Emergency (ER) | payer MEDICARE ==
[~2024-03-08] VITALS: Ht 167.6 cm; Wt 121.4 kg
[2024-03-08 16:55] LABS: BASO % 0.4 % (0.0-1.0); EOS # 0.1 10^3/uL (0.0-0.5); EOS % 0.5 % (0.0-3.0); HEMOGLOBIN 13.5 g/dl (12.0-15.5); LYMPH # 1.8 10^3/uL (1.5-5.0); LYMPH % 19.5 % (24.0-44.0); MEAN CORPUSCULAR HEMOGLOBIN 28.4 pg (27.0-33.0); MEAN CORPUSCULAR HGB CONC 32.1 g/dl (32.0-36.5); MEAN CORPUSCULAR VOLUME 88.2 fl (80.0-96.0); MONO # 0.8 10^3/uL (0.0-0.8); MONO % 8.7 % (2.0-8.0); NEUTROPHILS # 6.4 10^3/uL (1.5-8.5); NEUTROPHILS % 70.5 % (36.0-66.0); PLATELET COUNT, AUTOMATED 234 10^3/uL (150-450); RED BLOOD COUNT 4.76 10^6/uL (4.00-5.40); WHITE BLOOD COUNT 9.1 10^3/uL (4.0-10.0)
[2024-03-08 17:28] LABS: ALBUMIN 3.6 G/DL (3.2-5.2); BILIRUBIN,DIRECT 0.6 MG/DL (<0.4); BILIRUBIN,TOTAL 1.8 MG/DL (0.3-1.2); CALCIUM LEVEL 9.5 MG/DL (8.3-10.6); CREATININE FOR GFR 1.14 MG/DL (0.55-1.30); GLOMERULAR FILTRATION RATE 49.6 (>39); POTASSIUM SERUM 4.5 MMOL/L (3.5-5.1); TOTAL PROTEIN 6.5 G/DL (5.7-8.2)
[2024-03-08 17:30] LABS: THYROID STIMULATING HORMONE 1.701 uIU/ML (0.55-4.78)
[2024-03-08] MEDS ORDERED: NITR1CAP11 PO (18:33)
[2024-03-08] MEDS: NITROFURANTOIN (MACROBID) 100 MG CAP PO ONE (18:48)
[2024-03-08 19:06] VITALS: O2SAT 91
[2024-03-08 20:00] VITALS: BP 176/84; TEMP 97; O2SAT 96
== END 2024-03-08 20:32 | disposition home or self-care (01) ==
LOC: EDBD 15:17 → M ED 15:17
DX: N39.0 Urinary tract infection, site not specified (principal); E13.40 Other specified diabetes mellitus with diabetic neuropathy, unspecified; I48.91 Unspecified atrial fibrillation; I10 Essential (primary) hypertension; Z88.8 Allergy status to other drugs, medicaments and biological substances; Z91.09 Other allergy status, other than to drugs and biological substances; Z79.899 Other long term (current) drug therapy

== ENCOUNTER → 2024-03-25 | Outpatient (REF) | payer MEDICARE ==
[~2024-03-25] MED LIST changes: +CRAN450T4 PO; +MIRA33506 PO; +MOM30SS2 PO; +NEUR100C PO; +NITR100C2 PO; +NITR1CAP11 PO; +ONDA-83 PO; +POTA99CA2 PO; +SENN-52 PO
[2024-03-25 18:56] LABS: APPEARANCE, URINE MANUAL HAZY (CLEAR); COLOR, URINE MANUAL ORANGE (YELLOW)
[2024-03-25 18:57] LABS: BILIRUBIN, URINE MANUAL NEGATIVE (NEGATIVE); GLUCOSE, URINE (UA) MANUAL NEGATIVE (NEGATIVE); KETONE, URINE MANUAL NEGATIVE (NEGATIVE); PROTEIN, URINE MANUAL NEGATIVE (NEGATIVE); UROBILINOGEN, URINE MANUAL NORMAL (NORMAL)
[2024-03-25 18:58] LABS: BLOOD URINE MANUAL POSITIVE (NEGATIVE); LEUKOCYTE ESTERASE, URINE MAN NEGATIVE (NEGATIVE); NITRITE, URINE MANUAL POSITIVE (NEGATIVE)
[2024-03-25 19:00] LABS: RBC, URINE TNTC /hpf (0-3)
[2024-03-25 19:01] LABS: SQUAMOUS EPITHELIAL CELL URINE MOD AMOUNT /hpf (SMALL AMT)
[2024-03-25 19:08] LABS: BACTERIA, URINE MOD AMOUNT
[2024-03-25 19:10] LABS: URIC ACID CRYSTALS, URINE SMALL AMOUNT /hpf
[2024-03-25 19:11] LABS: HYALINE CAST, URINE NONE SEEN /lpf (0-1)
== END ==
LOC: M SMT 16:58
PROVIDERS: ATTEND Specialist
DX: N39.0 Urinary tract infection, site not specified (principal)

== ENCOUNTER → 2024-04-01 | Outpatient (CLI) | payer MEDICARE ==
[~2024-04-01] MED LIST changes: +DOCU8.6T PO; +GABA-282 PO; +NITR100C3 PO; -NITR1CAP11 PO
[2024-04-01 18:16] LABS: BASO % 0.4 % (0.0-1.0); EOS # 0.1 10^3/uL (0.0-0.5); EOS % 1.3 % (0.0-3.0); HEMATOCRIT 41.9 % (36.0-47.0); HEMOGLOBIN 13.4 g/dl (12.0-15.5); LYMPH # 2.1 10^3/uL (1.5-5.0); LYMPH % 26.3 % (24.0-44.0); MEAN CORPUSCULAR HEMOGLOBIN 29.2 pg (27.0-33.0); MEAN CORPUSCULAR VOLUME 91.3 fl (80.0-96.0); MONO # 0.9 10^3/uL (0.0-0.8); MONO % 10.6 % (2.0-8.0); NEUTROPHILS # 4.9 10^3/uL (1.5-8.5); NEUTROPHILS % 61.1 % (36.0-66.0); PLATELET COUNT, AUTOMATED 213 10^3/uL (150-450); RED BLOOD COUNT 4.59 10^6/uL (4.00-5.40)
[2024-04-01 18:17] LABS: AMORPHOUS SEDIMENT SMALL (NEGATIVE); APPEARANCE, URINE CLOUDY (CLEAR); BACTERIA, URINE AUTO 1+ (NEGATIVE); BILIRUBIN, URINE AUTO NEGATIVE (NEGATIVE); BLOOD, URINE BLOOD NEGATIVE (NEGATIVE); COLOR, URINE AMBER (YELLOW); GLUCOSE, URINE (UA) AUTO NEGATIVE (NEGATIVE); KETONE, URINE AUTO TRACE mg/dL (NEGATIVE); LEUKOCYTE ESTERASE, URINE AUTO 1+ (NEGATIVE); MUCUS, URINE SMALL (NEGATIVE); NITRITE, URINE AUTO POSITIVE (NEGATIVE); PROTEIN, URINE AUTO 1+ mg/dL (NEGATIVE); RBC, URINE AUTO 11 /HPF (0-3); SPECIFIC GRAVITY URINE AUTO 1.019 (1.002-1.035); SQUAMOUS EPITHELIAL CELL UR AU 26 /HPF (0-6); WBC, URINE AUTO 89 /HPF (0-3)
[2024-04-01 18:41] LABS: CREATININE, URINE 153.3 MG/DL
[2024-04-01 18:45] LABS: HEMOGLOBIN A1c 4.9 % (4.0-6.0)
[2024-04-01 19:05] LABS: ALBUMIN 3.6 G/DL (3.2-5.2); ALKALINE PHOSPHATASE 69 U/L (46-116); ALT/SGPT 23 U/L (7.0-40); AST/SGOT 13 U/L (<34); BILIRUBIN,TOTAL 1.1 MG/DL (0.3-1.2); BLOOD UREA NITROGEN 13 MG/DL (9-23); CALCIUM LEVEL 9.6 MG/DL (8.3-10.6); CARBON DIOXIDE LEVEL 29 MMOL/L (20-31); CHLORIDE LEVEL 103 MMOL/L (98-107); CHOLESTEROL LEVEL 176 MG/DL (<200); CHOLESTEROL RISK RATIO 4.24 (<5); CREATININE FOR GFR 0.96 MG/DL (0.55-1.30); GLOMERULAR FILTRATION RATE > 60.0 (>39); GLUCOSE, FASTING 96 MG/DL (74-106); HDL CHOLESTEROL 41.5 MG/DL (>40); LDL CHOLESTEROL 97.1 MG/DL (<100); NON-HDL-C 134.5 MG/DL; POTASSIUM SERUM 4.7 MMOL/L (3.5-5.1); SODIUM LEVEL 139 MMOL/L (136-145); TOTAL 25(OH) VITAMIN D 39.7 NG/ML (20.0-100.0); TOTAL PROTEIN 6.1 G/DL (5.7-8.2); TRIGLYCERIDES LEVEL 187 MG/DL (<150); VITAMIN B12 LEVEL 614 PG/ML (211-911)
== END ==
LOC: M PLALAB 16:00
PROVIDERS: ATTEND Internal Medicine Hematology
DX: N39.0 Urinary tract infection, site not specified (principal); E11.9 Type 2 diabetes mellitus without complications; Z79.899 Other long term (current) drug therapy

== ENCOUNTER 2024-04-03 17:34 | Inpatient (IN) | payer MEDICARE ==
[~2024-04-03] VITALS: Ht 167.6 cm; Wt 118.4 kg
[~2024-04-03 17:34] MED LIST changes: -DOCU8.6T PO; -GABA-282 PO
[2024-04-03 21:10] LABS: BASO # 0.1 10^3/uL (0.0-0.2); BASO % 0.7 % (0.0-1.0); EOS # 0.1 10^3/uL (0.0-0.5); EOS % 1.4 % (0.0-3.0); HEMATOCRIT 43.2 % (36.0-47.0); HEMOGLOBIN 14.1 g/dl (12.0-15.5); LYMPH # 2.4 10^3/uL (1.5-5.0); LYMPH % 32.9 % (24.0-44.0); MEAN CORPUSCULAR HEMOGLOBIN 29.3 pg (27.0-33.0); MEAN CORPUSCULAR HGB CONC 32.6 g/dl (32.0-36.5); MEAN CORPUSCULAR VOLUME 89.6 fl (80.0-96.0); MONO # 0.7 10^3/uL (0.0-0.8); NEUTROPHILS % 54.9 % (36.0-66.0); PLATELET COUNT, AUTOMATED 208 10^3/uL (150-450); RED BLOOD COUNT 4.82 10^6/uL (4.00-5.40); WHITE BLOOD COUNT 7.3 10^3/uL (4.0-10.0)
[2024-04-03 21:40] LABS: BLOOD UREA NITROGEN 12 MG/DL (9-23); CALCIUM LEVEL 9.7 MG/DL (8.3-10.6); CARBON DIOXIDE LEVEL 30 MMOL/L (20-31); CHLORIDE LEVEL 105 MMOL/L (98-107); CREATININE FOR GFR 0.91 MG/DL (0.55-1.30); GLOMERULAR FILTRATION RATE > 60.0 (>39); GLUCOSE, FASTING 103 MG/DL (74-106); POTASSIUM SERUM 4.4 MMOL/L (3.5-5.1); SODIUM LEVEL 142 MMOL/L (136-145)
[2024-04-03] MEDS ORDERED: ONDA-83 PO (21:46)
[2024-04-03] MEDS ORDERED: GABA-282 PO (21:46)
[2024-04-03] MEDS ORDERED: DOCU8.6T PO (21:46)
[2024-04-03] MEDS ORDERED: HOME MED LIST COMPLETE! XX SCH (21:55)
[2024-04-03] MEDS ORDERED: ONDANSETRON 4MG TAB PO PRN (22:00)
[2024-04-03] MEDS ORDERED: GLUCOSE 4 GM CHEW PO PRN (22:20)
[2024-04-03] MEDS ORDERED: DEXTROSE 50% 50ML SYRINGE IV PRN (22:20)
[2024-04-03] MEDS ORDERED: GLUCAGON INJ 1MG VIAL SC PRN (22:20)
[2024-04-03] MEDS: APIXABAN 5 MG TAB (ELIQUIS) PO SCH (22:32)
[2024-04-03] MEDS: MEROPENEM INJ 1 GM in IV 1 EA IV SCH (22:32)
[2024-04-03 22:37] LABS: PROCALCITONIN 0.06 ng/ml
[2024-04-04 00:04] VITALS: BP 149/81; TEMP 97.2; O2SAT 96
[2024-04-04 01:14] LABS: INR 1.22
[2024-04-04 04:00] VITALS: BP 141/80; TEMP 97.7; O2SAT 99
[2024-04-04 07:14] LABS: BASO % 0.5 % (0.0-1.0); EOS # 0.1 10^3/uL (0.0-0.5); EOS % 1.9 % (0.0-3.0); HEMOGLOBIN 12.9 g/dl (12.0-15.5); LYMPH # 1.6 10^3/uL (1.5-5.0); LYMPH % 27.9 % (24.0-44.0); MEAN CORPUSCULAR HEMOGLOBIN 28.7 pg (27.0-33.0); MEAN CORPUSCULAR HGB CONC 32.3 g/dl (32.0-36.5); MEAN CORPUSCULAR VOLUME 88.9 fl (80.0-96.0); MONO # 0.7 10^3/uL (0.0-0.8); MONO % 12.2 % (2.0-8.0); NEUTROPHILS # 3.3 10^3/uL (1.5-8.5); NEUTROPHILS % 57.3 % (36.0-66.0); PLATELET COUNT, AUTOMATED 157 10^3/uL (150-450); WHITE BLOOD COUNT 5.8 10^3/uL (4.0-10.0)
[2024-04-04] MEDS: INSULIN LISPRO (NovoLOG) PER UNIT SC SCH (07:30)
[2024-04-04 07:43] LABS: ALBUMIN 2.9 G/DL (3.2-5.2); BLOOD UREA NITROGEN 11 MG/DL (9-23); CARBON DIOXIDE LEVEL 26 MMOL/L (20-31); CHLORIDE LEVEL 107 MMOL/L (98-107); GLOMERULAR FILTRATION RATE > 60.0 (>39); GLUCOSE, FASTING 98 MG/DL (74-106); MAGNESIUM LEVEL 1.8 MG/DL (1.8-2.4); PHOSPHORUS LEVEL 4.3 MG/DL (2.4-5.1); POTASSIUM SERUM 4.3 MMOL/L (3.5-5.1); SODIUM LEVEL 142 MMOL/L (136-145)
[2024-04-04 08:00] VITALS: BP 140/82; TEMP 97.5; O2SAT 98
[2024-04-04] MEDS: DOCUSATE SODIUM 100MG CAPSULE PO SCH (08:14)
[2024-04-04] MEDS: GABAPENTIN 300 MG CAP PO SCH (08:14)
[2024-04-04] MEDS: ERTAPENEM SODIUM 1 GM in NS MINI-BAG PLUS 50 ML IV SCH (13:47)
[2024-04-04] MEDS: FUROSEMIDE 20 MG TAB PO SCH (14:54)
[2024-04-04] MEDS: FLUTICASONE PROP 0.05% NASAL SPRAY 16 GM (FLONASE) PRN (14:54)
[2024-04-04 16:00] VITALS: BP 139/84; TEMP 97.7; O2SAT 93
[2024-04-04] MEDS: ACETAMINOPHEN TAB 650MG DOSE (2X325MG) PO PRN (18:36)
[2024-04-04 20:00] VITALS: BP 106/46; TEMP 97.5; O2SAT 97
[2024-04-04] MEDS ORDERED: INSULIN LISPRO (NovoLOG) PER UNIT SC SCH (21:00)
[2024-04-05 04:00] VITALS: BP 120/57; TEMP 97; O2SAT 99
[2024-04-05 08:27] LABS: BASO % 0.5 % (0.0-1.0); EOS # 0.2 10^3/uL (0.0-0.5); EOS % 2.9 % (0.0-3.0); HEMATOCRIT 40.4 % (36.0-47.0); LYMPH # 1.6 10^3/uL (1.5-5.0); LYMPH % 29.1 % (24.0-44.0); MEAN CORPUSCULAR HEMOGLOBIN 29.1 pg (27.0-33.0); MEAN CORPUSCULAR HGB CONC 32.2 g/dl (32.0-36.5); MEAN CORPUSCULAR VOLUME 90.6 fl (80.0-96.0); MONO # 0.6 10^3/uL (0.0-0.8); NEUTROPHILS # 3.1 10^3/uL (1.5-8.5); NEUTROPHILS % 56.1 % (36.0-66.0); PLATELET COUNT, AUTOMATED 177 10^3/uL (150-450); RED BLOOD COUNT 4.46 10^6/uL (4.00-5.40); WHITE BLOOD COUNT 5.6 10^3/uL (4.0-10.0)
[2024-04-05] MEDS: MIRALAX *UNIT DOSE* 17GM PACKET PO SCH (08:30)
[2024-04-05] MEDS: SENOKOT S TAB PO SCH (08:30)
[2024-04-05 08:57] LABS: ALBUMIN 2.9 G/DL (3.2-5.2); BLOOD UREA NITROGEN 14 MG/DL (9-23); CARBON DIOXIDE LEVEL 30 MMOL/L (20-31); CHLORIDE LEVEL 108 MMOL/L (98-107); CREATININE FOR GFR 0.82 MG/DL (0.55-1.30); GLOMERULAR FILTRATION RATE > 60.0 (>39); GLUCOSE, FASTING 96 MG/DL (74-106); MAGNESIUM LEVEL 1.8 MG/DL (1.8-2.4); PHOSPHORUS LEVEL 4.1 MG/DL (2.4-5.1); POTASSIUM SERUM 4.6 MMOL/L (3.5-5.1); SODIUM LEVEL 143 MMOL/L (136-145)
[2024-04-05] MEDS: LIDOCAINE 5% (LIDODERM) PATCH TD SCH (10:32)
[2024-04-05] MEDS: CYCLOBENZAPRINE 5MG TABLET PO PRN (10:32)
[2024-04-05 12:00] VITALS: BP 117/59; TEMP 97.3; O2SAT 95
[2024-04-05 20:11] VITALS: BP 109/58; TEMP 97.7; O2SAT 90
[2024-04-06 04:00] VITALS: BP 108/72; TEMP 97.3; O2SAT 96
[2024-04-06 06:49] LABS: BASO % 0.7 % (0.0-1.0); EOS # 0.3 10^3/uL (0.0-0.5); EOS % 4.3 % (0.0-3.0); HEMATOCRIT 40.5 % (36.0-47.0); HEMOGLOBIN 12.9 g/dl (12.0-15.5); LYMPH # 1.9 10^3/uL (1.5-5.0); LYMPH % 32.7 % (24.0-44.0); MEAN CORPUSCULAR HGB CONC 31.9 g/dl (32.0-36.5); MONO # 0.7 10^3/uL (0.0-0.8); MONO % 11.5 % (2.0-8.0); NEUTROPHILS # 2.9 10^3/uL (1.5-8.5); NEUTROPHILS % 50.6 % (36.0-66.0); PLATELET COUNT, AUTOMATED 173 10^3/uL (150-450); RED BLOOD COUNT 4.45 10^6/uL (4.00-5.40); WHITE BLOOD COUNT 5.8 10^3/uL (4.0-10.0)
[2024-04-06 07:21] LABS: ALBUMIN 2.9 G/DL (3.2-5.2); BLOOD UREA NITROGEN 16 MG/DL (9-23); CALCIUM LEVEL 9.1 MG/DL (8.3-10.6); CARBON DIOXIDE LEVEL 30 MMOL/L (20-31); CHLORIDE LEVEL 107 MMOL/L (98-107); CREATININE FOR GFR 0.92 MG/DL (0.55-1.30); GLOMERULAR FILTRATION RATE > 60.0 (>39); GLUCOSE, FASTING 95 MG/DL (74-106); MAGNESIUM LEVEL 1.8 MG/DL (1.8-2.4); PHOSPHORUS LEVEL 4.2 MG/DL (2.4-5.1); POTASSIUM SERUM 4.1 MMOL/L (3.5-5.1); SODIUM LEVEL 143 MMOL/L (136-145)
[2024-04-06 13:51] VITALS: BP 113/73; TEMP 97.2; O2SAT 96
[2024-04-06] MEDS: BISACODYL 10MG SUPP PR PRN (17:02)
[2024-04-06 20:11] VITALS: BP 118/78; TEMP 97.5; O2SAT 95
[2024-04-06] MEDS ORDERED: PILL CUTTER 1 EACH XX ONE (20:43)
[2024-04-07 04:40] VITALS: BP 132/74; TEMP 97.5; O2SAT 95
[2024-04-07 08:54] LABS: BASO % 0.7 % (0.0-1.0); EOS # 0.2 10^3/uL (0.0-0.5); EOS % 3.1 % (0.0-3.0); HEMATOCRIT 41.8 % (36.0-47.0); HEMOGLOBIN 13.3 g/dl (12.0-15.5); LYMPH # 1.8 10^3/uL (1.5-5.0); LYMPH % 30.1 % (24.0-44.0); MEAN CORPUSCULAR HEMOGLOBIN 28.7 pg (27.0-33.0); MEAN CORPUSCULAR HGB CONC 31.8 g/dl (32.0-36.5); MEAN CORPUSCULAR VOLUME 90.1 fl (80.0-96.0); MONO # 0.7 10^3/uL (0.0-0.8); MONO % 10.6 % (2.0-8.0); NEUTROPHILS # 3.4 10^3/uL (1.5-8.5); NEUTROPHILS % 55.3 % (36.0-66.0); PLATELET COUNT, AUTOMATED 176 10^3/uL (150-450); RED BLOOD COUNT 4.64 10^6/uL (4.00-5.40); WHITE BLOOD COUNT 6.1 10^3/uL (4.0-10.0)
[2024-04-07 09:18] LABS: ALBUMIN 3.1 G/DL (3.2-5.2); BLOOD UREA NITROGEN 15 MG/DL (9-23); CALCIUM LEVEL 9.2 MG/DL (8.3-10.6); CARBON DIOXIDE LEVEL 30 MMOL/L (20-31); CHLORIDE LEVEL 106 MMOL/L (98-107); CREATININE FOR GFR 0.81 MG/DL (0.55-1.30); GLOMERULAR FILTRATION RATE > 60.0 (>39); GLUCOSE, FASTING 93 MG/DL (74-106); MAGNESIUM LEVEL 1.8 MG/DL (1.8-2.4); PHOSPHORUS LEVEL 3.9 MG/DL (2.4-5.1); POTASSIUM SERUM 4.2 MMOL/L (3.5-5.1); SODIUM LEVEL 141 MMOL/L (136-145)
[2024-04-07] MEDS ORDERED: MIRA33506 PO (12:44)
[2024-04-07] MEDS ORDERED: LIDO5TD TD (12:44)
[2024-04-07] MEDS ORDERED: CYCL5TAB PO (12:44)
[2024-04-07] MEDS ORDERED: ERTA1INJ3 IJ (12:44)
[2024-04-07 12:45] VITALS: BP 132/76; TEMP 97.5; O2SAT 97
== END 2024-04-07 15:30 | disposition home or self-care (01) | DRG 690 ==
LOC: M ED 17:34 → M ED INP 17:35 → M MS5PR 04-04 00:06 → OBSVTOIN 04-06 08:56
PROVIDERS: ADMIT Internal Medicine; ATTEND Internal Medicine
DX: N39.0 Urinary tract infection, site not specified (principal); I50.32 Chronic diastolic (congestive) heart failure; Z68.41 Body mass index [BMI] 40.0-44.9, adult; I48.0 Paroxysmal atrial fibrillation; M48.061 Spinal stenosis, lumbar region without neurogenic claudication; E66.01 Morbid (severe) obesity due to excess calories; G89.29 Other chronic pain; E05.90 Thyrotoxicosis, unspecified without thyrotoxic crisis or storm; M54.9 Dorsalgia, unspecified; B96.1 Klebsiella pneumoniae [K. pneumoniae] as the cause of diseases classified elsewhere; E11.42 Type 2 diabetes mellitus with diabetic polyneuropathy; E55.9 Vitamin D deficiency, unspecified; K59.00 Constipation, unspecified; Z79.01 Long term (current) use of anticoagulants; N32.81 Overactive bladder; Z95.0 Presence of cardiac pacemaker; Z88.8 Allergy status to other drugs, medicaments and biological substances; Z79.899 Other long term (current) drug therapy

== ENCOUNTER 2024-04-08 13:48 | Outpatient (CLI) | payer MEDICARE ==
[~2024-04-08 13:48] MED LIST changes: +CYCL5TAB PO; +DOCU8.6T PO; +ERTA1INJ3 IJ; +GABA-282 PO; +LIDO5TD TD
[2024-04-08 14:00] VITALS: BP 111/68; O2SAT 94
[2024-04-08] MEDS: ERTAPENEM SODIUM 1 GM in NS MINI-BAG PLUS 50 ML IV ONE (14:43)
[2024-04-08 15:30] VITALS: BP 147/78; O2SAT 96
== END 2024-04-08 15:30 ==
LOC: M INFU 13:48
PROVIDERS: ATTEND Internal Medicine
DX: Z87.440 Personal history of urinary (tract) infections (principal); Z16.12 Extended spectrum beta lactamase (ESBL) resistance; B96.1 Klebsiella pneumoniae [K. pneumoniae] as the cause of diseases classified elsewhere; Z88.8 Allergy status to other drugs, medicaments and biological substances; Z91.048 Other nonmedicinal substance allergy status

== ENCOUNTER 2024-04-09 13:34 | Outpatient (CLI) | payer MEDICARE ==
[2024-04-09 13:40] VITALS: BP 152/71; O2SAT 98
[2024-04-09] MEDS: ERTAPENEM SODIUM 1 GM in NS MINI-BAG PLUS 50 ML IV ONE (13:48)
[2024-04-09 14:25] VITALS: BP 138/87; O2SAT 97
== END 2024-04-09 14:28 ==
LOC: M INFU 13:34
PROVIDERS: ATTEND Internal Medicine
DX: N39.0 Urinary tract infection, site not specified (principal); B96.1 Klebsiella pneumoniae [K. pneumoniae] as the cause of diseases classified elsewhere; Z88.8 Allergy status to other drugs, medicaments and biological substances; Z91.048 Other nonmedicinal substance allergy status
CPT/HCPCS: 96365; J1335

== ENCOUNTER 2024-04-10 13:50 | Outpatient (CLI) | payer MEDICARE ==
[2024-04-10 13:50] VITALS: BP 132/72; O2SAT 96
[2024-04-10] MEDS: ERTAPENEM SODIUM 1 GM in NS MINI-BAG PLUS 50 ML IV ONE (14:00)
[2024-04-10 14:40] VITALS: BP 138/76; O2SAT 96
== END 2024-04-10 14:40 ==
LOC: M INFU 13:50
PROVIDERS: ATTEND Internal Medicine
DX: N39.0 Urinary tract infection, site not specified (principal); B96.1 Klebsiella pneumoniae [K. pneumoniae] as the cause of diseases classified elsewhere
CPT/HCPCS: 96365; J1335

== ENCOUNTER → 2024-04-13 | Outpatient (REF) | payer MEDICARE ==
[2024-04-14 10:56] LABS: APPEARANCE, URINE HAZY (CLEAR); BACTERIA, URINE AUTO NEGATIVE (NEGATIVE); BILIRUBIN, URINE AUTO NEGATIVE (NEGATIVE); BLOOD, URINE BLOOD NEGATIVE (NEGATIVE); COLOR, URINE YELLOW (YELLOW); GLUCOSE, URINE (UA) AUTO NEGATIVE (NEGATIVE); KETONE, URINE AUTO NEGATIVE (NEGATIVE); LEUKOCYTE ESTERASE, URINE AUTO NEGATIVE (NEGATIVE); NITRITE, URINE AUTO NEGATIVE (NEGATIVE); PROTEIN, URINE AUTO NEGATIVE (NEGATIVE); RBC, URINE AUTO 7 /HPF (0-3); SPECIFIC GRAVITY URINE AUTO 1.008 (1.002-1.035); SQUAMOUS EPITHELIAL CELL UR AU 0 /HPF (0-6); UROBILINOGEN, URINE AUTO 0.2 mg/dL (0.0-2.0); WBC, URINE AUTO 2 /HPF (0-3)
== END ==
LOC: M SFHCPLAZ 09:34
PROVIDERS: ATTEND Internal Medicine Hematology
DX: N39.0 Urinary tract infection, site not specified (principal)

== ENCOUNTER → 2024-05-05 | Outpatient (CLI) | payer MEDICARE ==
[2024-05-05 15:53] LABS: FREE T4 1.25 NG/DL (0.89-1.76)
[2024-05-05 15:54] LABS: THYROID STIMULATING HORMONE 0.832 uIU/ML (0.55-4.78)
== END ==
LOC: M PLALAB 14:03
PROVIDERS: ATTEND Nurse Practitioner Family
DX: E05.10 Thyrotoxicosis with toxic single thyroid nodule without thyrotoxic crisis or storm (principal)

== ENCOUNTER → 2024-05-25 | Outpatient (REF) | payer MEDICARE ==
[2024-05-25 17:58] LABS: APPEARANCE, URINE HAZY (CLEAR); BACTERIA, URINE AUTO 1+ (NEGATIVE); BILIRUBIN, URINE AUTO NEGATIVE (NEGATIVE); BLOOD, URINE BLOOD 2+ (NEGATIVE); COLOR, URINE YELLOW (YELLOW); GLUCOSE, URINE (UA) AUTO NEGATIVE (NEGATIVE); KETONE, URINE AUTO NEGATIVE (NEGATIVE); LEUKOCYTE ESTERASE, URINE AUTO 3+ (NEGATIVE); MUCUS, URINE SMALL (NEGATIVE); NITRITE, URINE AUTO POSITIVE (NEGATIVE); PROTEIN, URINE AUTO NEGATIVE (NEGATIVE); RBC, URINE AUTO 66 /HPF (0-3); SPECIFIC GRAVITY URINE AUTO 1.018 (1.002-1.035); SQUAMOUS EPITHELIAL CELL UR AU 7 /HPF (0-6); UROBILINOGEN, URINE AUTO 0.2 mg/dL (0.0-2.0); WBC, URINE AUTO TNTC /HPF (0-3)
== END ==
LOC: M SMT 16:58
PROVIDERS: ATTEND Specialist
DX: N39.0 Urinary tract infection, site not specified (principal)

== ENCOUNTER → 2024-08-28 | Outpatient (CLI) | payer MEDICARE ==
[~2024-08-28] MED LIST changes: +GABA-1172 PO; -GABA-282 PO
== END ==
LOC: M WHC 12:58
PROVIDERS: ATTEND Internal Medicine Hematology
DX: Z12.31 Encounter for screening mammogram for malignant neoplasm of breast (principal); Z13.820 Encounter for screening for osteoporosis; M85.89 Other specified disorders of bone density and structure, multiple sites

== ENCOUNTER → 2024-09-09 | Outpatient (CLI) | payer MEDICARE ==
[~2024-09-09] MED LIST changes: -CYCL5TAB PO; +CYCL5TAB4 PO
[2024-09-09 18:32] LABS: FREE T4 1.25 NG/DL (0.89-1.76)
[2024-09-09 18:33] LABS: THYROID STIMULATING HORMONE 1.274 uIU/ML (0.55-4.78)
== END ==
LOC: M PLALAB 13:31
PROVIDERS: ATTEND Nurse Practitioner Family
DX: E05.10 Thyrotoxicosis with toxic single thyroid nodule without thyrotoxic crisis or storm (principal)

== ENCOUNTER → 2024-09-09 | Outpatient (CLI) | payer MEDICARE | LOC: M WHC 12:48 | PROVIDERS: ATTEND Internal Medicine Hematology | DX: R92.8 Other abnormal and inconclusive findings on diagnostic imaging of breast (principal) ==

== ENCOUNTER → 2024-12-09 | Outpatient (REF) | payer MEDICARE ==
[~2024-12-09] MED LIST changes: +METH-1386 PO; -METH25TAB PO
[2024-12-09 18:25] LABS: APPEARANCE, URINE CLOUDY (CLEAR); BACTERIA, URINE AUTO 2+ (NEGATIVE); BILIRUBIN, URINE AUTO NEGATIVE (NEGATIVE); BLOOD, URINE BLOOD 1+ (NEGATIVE); COLOR, URINE AMBER (YELLOW); GLUCOSE, URINE (UA) AUTO NEGATIVE (NEGATIVE); KETONE, URINE AUTO NEGATIVE (NEGATIVE); LEUKOCYTE ESTERASE, URINE AUTO 3+ (NEGATIVE); NITRITE, URINE AUTO POSITIVE (NEGATIVE); PROTEIN, URINE AUTO 2+ mg/dL (NEGATIVE); RBC, URINE AUTO 155 /HPF (0-3); SPECIFIC GRAVITY URINE AUTO 1.021 (1.002-1.035); SQUAMOUS EPITHELIAL CELL UR AU 17 /HPF (0-6); UROBILINOGEN, URINE AUTO 0.2 mg/dL (0.0-2.0); WBC, URINE AUTO TNTC /HPF (0-3)
== END ==
LOC: M SMT 17:29
PROVIDERS: ATTEND Podiatrist
DX: N39.0 Urinary tract infection, site not specified (principal)

== ENCOUNTER → 2024-12-30 | Outpatient (CLI) | payer MEDICARE ==
[2024-12-30 15:07] LABS: HEMATOCRIT 41.9 % (36.0-47.0); HEMOGLOBIN 13.2 g/dl (12.0-15.5); MEAN CORPUSCULAR HEMOGLOBIN 29.6 pg (27.0-33.0); MEAN CORPUSCULAR HGB CONC 31.5 g/dl (32.0-36.5); MEAN CORPUSCULAR VOLUME 93.9 fl (80.0-96.0); PLATELET COUNT, AUTOMATED 229 10^3/uL (150-450); RED BLOOD COUNT 4.46 10^6/uL (4.00-5.40); WHITE BLOOD COUNT 7.2 10^3/uL (4.0-10.0)
[2024-12-30 15:32] LABS: CREATININE, URINE 123.5 MG/DL; MAU/CREAT RATIO 140.8 MCG/MG (0.0-30.0)
[2024-12-30 15:39] LABS: ALBUMIN 3.5 G/DL (3.2-5.2); BILIRUBIN,TOTAL 0.9 MG/DL (0.3-1.2); CALCIUM LEVEL 9.4 MG/DL (8.3-10.6); CHOLESTEROL RISK RATIO 3.36 (<5); CREATININE FOR GFR 1.05 MG/DL (0.55-1.30); GLOMERULAR FILTRATION RATE 54.4 (>39); HDL CHOLESTEROL 47.5 MG/DL (>40); LDL CHOLESTEROL 91.5 MG/DL (<100); NON-HDL-C 112.5 MG/DL; POTASSIUM SERUM 5.9 MMOL/L (3.5-5.1); TOTAL PROTEIN 6.7 G/DL (5.7-8.2)
[2024-12-30 15:41] LABS: THYROID STIMULATING HORMONE 1.391 uIU/ML (0.55-4.78)
[2024-12-30 15:53] LABS: HEMOGLOBIN A1c 5.5 % (4.0-6.0)
== END ==
LOC: M PLALAB 11:15
PROVIDERS: ATTEND Family Medicine
DX: I10 Essential (primary) hypertension (principal); E05.90 Thyrotoxicosis, unspecified without thyrotoxic crisis or storm; Z79.01 Long term (current) use of anticoagulants; R23.2 Flushing; E11.9 Type 2 diabetes mellitus without complications

== ENCOUNTER → 2024-12-30 | Outpatient (CLI) | payer MEDICARE ==
[2024-12-30 15:35] LABS: FREE T4 1.29 NG/DL (0.89-1.76); THYROID STIMULATING HORMONE 1.415 uIU/ML (0.55-4.78)
== END ==
LOC: M PLALAB 11:13
PROVIDERS: ATTEND Nurse Practitioner Family
DX: E05.10 Thyrotoxicosis with toxic single thyroid nodule without thyrotoxic crisis or storm (principal)

== ENCOUNTER → 2024-12-30 | Outpatient (REF) | payer MEDICARE ==
[2024-12-30 15:06] LABS: APPEARANCE, URINE MANUAL TURBID (CLEAR); COLOR, URINE MANUAL YELLOW (YELLOW)
[2024-12-30 15:07] LABS: BILIRUBIN, URINE MANUAL NEGATIVE (NEGATIVE); BLOOD URINE MANUAL POSITIVE (NEGATIVE); GLUCOSE, URINE (UA) MANUAL NEGATIVE (NEGATIVE); KETONE, URINE MANUAL NEGATIVE (NEGATIVE); LEUKOCYTE ESTERASE, URINE MAN POSITIVE (NEGATIVE); NITRITE, URINE MANUAL POSITIVE (NEGATIVE); PROTEIN, URINE MANUAL 1+ mg/dL (NEGATIVE); SPECIFIC GRAVITY,URINE MANUAL 1.005 (1.002-1.035); UROBILINOGEN, URINE MANUAL NORMAL (NORMAL)
[2024-12-30 15:18] LABS: WBC, URINE TNTC /hpf (0-3)
[2024-12-30 15:19] LABS: BACTERIA, URINE LARGE AMOUNT; HYALINE CAST, URINE NONE SEEN /lpf (0-1); SQUAMOUS EPITHELIAL CELL URINE SMALL AMOUNT /hpf (SMALL AMT); TRIPLE PHOSPHATE CRYSTAL,URINE SMALL AMOUNT /hpf
== END ==
LOC: M LABDRAWP 15:02
PROVIDERS: ATTEND Specialist
DX: N39.0 Urinary tract infection, site not specified (principal)

== ENCOUNTER → 2025-01-21 | Outpatient (CLI) | payer MEDICARE, OTHER ==
[2025-01-21 17:43] LABS: APPEARANCE, URINE MANUAL HAZY (CLEAR); BILIRUBIN, URINE MANUAL NEGATIVE (NEGATIVE); BLOOD URINE MANUAL POSITIVE (NEGATIVE); COLOR, URINE MANUAL YELLOW (YELLOW); GLUCOSE, URINE (UA) MANUAL NEGATIVE (NEGATIVE); KETONE, URINE MANUAL NEGATIVE (NEGATIVE); LEUKOCYTE ESTERASE, URINE MAN TRACE (NEGATIVE); NITRITE, URINE MANUAL NEGATIVE (NEGATIVE); PROTEIN, URINE MANUAL 1+ mg/dL (NEGATIVE); SPECIFIC GRAVITY,URINE MANUAL 1.027 (1.002-1.035); UROBILINOGEN, URINE MANUAL NORMAL (NORMAL)
[2025-01-21 17:46] LABS: AMORPHOUS SEDIMENT, URINE LARGE AMOUNT (NEGATIVE); BACTERIA, URINE SMALL AMOUNT; HYALINE CAST, URINE NONE SEEN /lpf (0-1); RBC, URINE 30-40 /hpf (0-3); SQUAMOUS EPITHELIAL CELL URINE SMALL AMOUNT /hpf (SMALL AMT); TRIPLE PHOSPHATE CRYSTAL,URINE SMALL AMOUNT /hpf
[2025-01-21 18:07] LABS: CALCIUM LEVEL 9.5 MG/DL (8.3-10.6); GLOMERULAR FILTRATION RATE 57.5 (>39); POTASSIUM SERUM 5.6 MMOL/L (3.5-5.1)
== END ==
LOC: M PLALAB 15:10
PROVIDERS: ATTEND Family Medicine
DX: E87.5 Hyperkalemia (principal); Z87.440 Personal history of urinary (tract) infections

== ENCOUNTER → 2025-05-06 | Outpatient (CLI) | payer MEDICARE ==
[~2025-05-06] MED LIST changes: -AMIO200T49 PO; +AMIO200T54 PO; -EQL50TAB2 PO; +VITA1TAB82 PO
[2025-05-06 15:57] LABS: FREE T4 1.37 NG/DL (0.89-1.76)
== END ==
LOC: M PLALAB 13:45
PROVIDERS: ATTEND Nurse Practitioner Family
DX: E05.10 Thyrotoxicosis with toxic single thyroid nodule without thyrotoxic crisis or storm (principal)

== ENCOUNTER → 2025-06-21 | Outpatient (CLI) | payer MEDICARE ==
[~2025-06-21] MED LIST changes: -VITA100T14 PO; +VITA100T69 PO
== END ==
LOC: M PLAIMG 13:56
PROVIDERS: ATTEND Pain Medicine Interventional Pain Medicine
DX: M54.16 Radiculopathy, lumbar region (principal)

== ENCOUNTER → 2025-07-20 | Outpatient (CLI) | payer MEDICARE ==
[~2025-07-20] MED LIST changes: +METH-1100 PO; -METH-855 PO
[2025-07-20 15:37] LABS: ALT/SGPT 15.0 U/L (7.0-40); AST/SGOT 14.0 U/L (<34); CALCIUM LEVEL 9.2 MG/DL (8.3-10.6); CARBON DIOXIDE LEVEL 29.0 MMOL/L (20-31); CHLORIDE LEVEL 105.0 MMOL/L (98-107); POTASSIUM SERUM 5.1 MMOL/L (3.5-5.1); SODIUM LEVEL 141.0 MMOL/L (136-145)
[2025-07-20 15:47] LABS: CREATININE, URINE 134.3 MG/DL; MALB URINE SIEMENS 106.0 MG/L; MAU/CREAT RATIO 78.9 MCG/MG (0.0-30.0)
[2025-07-20 15:55] LABS: CREATININE FOR GFR 0.95 MG/DL (0.55-1.30); GLOMERULAR FILTRATION RATE 62.1 (>39)
== END ==
LOC: M PLALAB 11:43
PROVIDERS: ATTEND Family Medicine
DX: I10 Essential (primary) hypertension (principal)

== ENCOUNTER → 2025-09-27 | Outpatient (CLI) | payer MEDICARE ==
[~2025-09-27] MED LIST changes: -DOCU8.6T PO; +SENN-208 PO
== END ==
LOC: M WHC 14:06
PROVIDERS: ATTEND Family Medicine
DX: Z12.31 Encounter for screening mammogram for malignant neoplasm of breast (principal); Z53.9 Procedure and treatment not carried out, unspecified reason

== ENCOUNTER → 2025-10-14 | Outpatient (CLI) | payer MEDICARE ==
[2025-10-14 19:41] LABS: FREE T4 1.46 NG/DL (0.89-1.76)
== END ==
LOC: M PLALAB 13:56
PROVIDERS: ATTEND Nurse Practitioner Family
DX: E05.10 Thyrotoxicosis with toxic single thyroid nodule without thyrotoxic crisis or storm (principal)

== ENCOUNTER → 2025-10-14 | Outpatient (CLI) | payer MEDICARE | LOC: M WHC 13:50 | PROVIDERS: ATTEND Family Medicine | DX: Z12.31 Encounter for screening mammogram for malignant neoplasm of breast (principal); E05.10 Thyrotoxicosis with toxic single thyroid nodule without thyrotoxic crisis or storm; R92.323 Mammographic fibroglandular density, bilateral breasts; N60.01 Solitary cyst of right breast; R92.8 Other abnormal and inconclusive findings on diagnostic imaging of breast ==